=== PATIENT | female | born 1955 | race Caucasian/White ===

== ENCOUNTER 2020-05-19 11:20 | Inpatient (IN) | payer OTHER ==
[2020-05-19] MEDS ORDERED: SODIUM CHLORIDE 0.9% 1,000 ML IV STA (12:06)
[2020-05-19] MEDS ORDERED: ACETAMINOPHEN TAB 325 MG TAB PO STA (12:07)
[2020-05-19 13:00] LABS: Basophils # (A) 0.1 k/uL (0-0.2); Basophils % (A) 1 %; Eosinophils % (A) 1 %; HCT 45.3 % (34.0-46.0); HGB 15.8 gm/dL (11.4-16.0); Lymphocytes # (A) 0.6 k/uL (1.0-4.8); Lymphocytes % (A) 9 %; MCH 30.2 pg (25.0-35.0); MCHC 34.9 g/dL (31.0-37.0); MCV 86.5 fL (80.0-100.0); Mean Platelet Volume 9.1; Monocytes # (A) 0.3 k/uL (0-1.0); Monocytes % (A) 4 %; Neutrophils # (A) 5.8 k/uL (1.3-7.7); Neutrophils % (A) 85 %; Platelet Count 121 k/uL (150-450); RBC 5.24 m/uL (3.80-5.40); WBC 6.8 k/uL (3.8-10.6)
[2020-05-19 13:14] LABS: INR 0.9 (<1.2); Partial Thromboplastin Time 23.8 sec (22.0-30.0); Prothrombin Time 9.8 sec (9.0-12.0)
[2020-05-19 13:17] LABS: ALT 33 U/L (4-34); AST 70 U/L (14-36); African American GFR (CKD) >90 (>60 ml/min/1.73 sqM); Albumin 3.7 g/dL (3.5-5.0); Alkaline Phosphatase 69 U/L (38-126); Anion Gap 9 mmol/L; Blood Urea Nitrogen 18 mg/dL (7-17); Calcium 8.5 mg/dL (8.4-10.2); Carbon Dioxide 29 mmol/L (22-30); Chloride 99 mmol/L (98-107); Glucose 113 mg/dL (74-99); Non-African American GFR(CKD) >90 (>60 ml/min/1.73 sqM); Potassium 3.8 mmol/L (3.5-5.1); Sodium 137 mmol/L (137-145); Total Bilirubin 0.7 mg/dL (0.2-1.3); Total Protein 6.6 g/dL (6.3-8.2)
[2020-05-19 13:28] LABS: D-Dimer 0.77 mg/L FEU (<0.60)
--- NOTE | 2020-05-19 13:31 | ED ---
SOB HPI - General Chief Complaint: Shortness of Breath Stated Complaint: Covid+/sob/dizzy/weak Time Seen by Provider: 05/19/20 11:55 Source: patient, RN notes reviewed Mode of arrival: ambulatory Limitations: no limitations - History of Present Illness Initial Comments: 64-year-old female presents to the emergency room with complaints of shortness of breath and fatigue. tested positive for Covid On although her symptoms started on May 10. Patient states initially had sore throat, diarrhea for 2 days, body aches and fevers. Pt was taking OTC Mucinex for a nonproductive type cough in addition to her Advair inhaler. Patient denies any other medications. Patient states symptoms have all resolved except for the shortness of breath and fatigue and fevers. States has been Tylenol and her last dose was 6:00 this morning. This patient has a history of COPD and asthma, was a smoker for 13 years, stopped at age 27. States chest tightness is about 6 or 7 out of 10. MD Complaint: shortness of breath - Related Data Home Medications Medication Instructions Recorded Confirmed Cholecalciferol (Vitamin D3) 75 mcg PO DAILY 05/19/20 05/19/20 [Vitamin D3 (3000 Iu)] Fluticasone/Salmeterol [Advair 1 puff INHALATION RT-BID 05/19/20 05/19/20 500-50 Diskus] Magnesium Gluconate [Magonate] 500 mg PO DAILY 05/19/20 05/19/20 Multivit-Min/Iron/Folic/Lutein 1 tab PO DAILY 05/19/20 05/19/20 [Centrum Silver Women Tablet] Oxybutynin ER [Ditropan Xl] 10 mg PO DAILY 05/19/20 05/19/20 amLODIPine BESYLATE/BENAZEPRIL 1 cap PO DAILY 05/19/20 05/19/20 [amLODIPine BESYLATE/BENAZEPRIL 10-20 mg] Allergies Allergy/AdvReac Type Severity Reaction Status Date / Time gluten Allergy Nausea & Verified 05/19/20 12:48 Vomiting & Diarrhea lactose Allergy Nausea & Verified 05/19/20 12:48 Vomiting & Diarrhea Review of Systems ROS Statement: Those systems with pertinent positive or pertinent negative responses have been documented in the HPI. ROS Other: All systems not noted in ROS Statement are negative. Past Medical History Past Medical History: Asthma History of Any Multi-Drug Resistant Organisms: None Reported Past Surgical History: Orthopedic Surgery Past Psychological History: No Psychological Hx Reported Smoking Status: Never smoker Past Alcohol Use History: Rare Past Drug Use History: None Reported General Exam Limitations: no limitations General appearance: alert, in no apparent distress Head exam: Present: atraumatic, normocephalic, normal inspection Eye exam: Present: normal appearance, PERRL, EOMI. Absent: scleral icterus, conjunctival injection, periorbital swelling ENT exam: Present: normal exam, mucous membranes moist Neck exam: Present: normal inspection, full ROM. Absent: tenderness, meningismus, lymphadenopathy, thyromegaly Respiratory exam: Present: decreased breath sounds. Absent: respiratory distress, wheezes, rales, rhonchi, stridor, chest wall tenderness, accessory muscle use Cardiovascular Exam: Present: regular rate, normal rhythm, normal heart sounds. Absent: systolic murmur, diastolic murmur, rubs, gallop, clicks GI/Abdominal exam: Present: soft, normal bowel sounds. Absent: distended, tenderness, guarding, rebound, rigid Extremities exam: Present: normal inspection, full ROM, normal capillary refill. Absent: tenderness, pedal edema, joint swelling, calf tenderness Back exam: Present: normal inspection. Absent: CVA tenderness (R), CVA tenderness (L) Neurological exam: Present: alert, oriented X3, CN II-XII intact Psychiatric exam: Present: normal affect, normal mood Skin exam: Present: warm, dry, intact, normal color. Absent: rash Course Vital Signs 05/19/20 05/19/20 05/19/20 11:27 13:15 16:30 Temperature 100.9 F H 99.9 F H 98.9 F Pulse Rate 92 87 90 Respiratory 22 18 18 Rate Blood Pressure 127/72 149/50 149/55 O2 Sat by Pulse 88 L 93 L 93 L Oximetry Medical Decision Making - Medical Decision Making Patient's d-dimer is 0.77, WBC count of 6.8, chest x-ray shows bilateral for opiates. CTA shows heart within upper limits with no pericardial effusion, aorta normal caliber, no large pulmonary embolisms, no measuring 1.9 cm coronal lymph node 1.5 cm likely reactive to bilateral illness. Patchy groundglass consolidation also noted but no pleural effusions. Troponin is negative at 0.012. Hemoglobin and hematocrit 15.8, 45.3 respectively. Due to need with for oxygen therapy with pulse ox of 80% on room air, patient will be admitted. Case discussed with Dr. Montoya who is agreeable to this plan. - Lab Data Result diagrams: 05/19/20 12:40 05/19/20 12:40 Lab Results 05/19/20 05/19/20 05/19/20 Range/Units 12:40 12:40 12:40 WBC 6.8 (3.8-10.6) k/uL RBC 5.24 (3.80-5.40) m/uL Hgb 15.8 (11.4-16.0) gm/dL Hct 45.3 (34.0-46.0) % MCV 86.5 (80.0-100.0) fL MCH 30.2 (25.0-35.0) pg MCHC 34.9 (31.0-37.0) g/dL RDW 14.0 (11.5-15.5) % Plt Count 121 L (150-450) k/uL MPV 9.1 Neutrophils % 85 % Lymphocytes % 9 % Monocytes % 4 % Eosinophils % 1 % Basophils % 1 % Neutrophils # 5.8 (1.3-7.7) k/uL Lymphocytes # 0.6 L (1.0-4.8) k/uL Monocytes # 0.3 (0-1.0) k/uL Eosinophils # 0.0 (0-0.7) k/uL Basophils # 0.1 (0-0.2) k/uL PT 9.8 (9.0-12.0) sec INR 0.9 (<1.2) APTT 23.8 (22.0-30.0) sec D-Dimer 0.77 H (<0.60) mg/L FEU Sodium 137 (137-145) mmol/L Potassium 3.8 (3.5-5.1) mmol/L Chloride 99 (98-107) mmol/L Carbon Dioxide 29 (22-30) mmol/L Anion Gap 9 mmol/L BUN 18 H (7-17) mg/dL Creatinine 0.56 (0.52-1.04) mg/dL Est GFR (CKD-EPI)AfAm >90 (>60 ml/min/1.73 sqM) Est GFR (CKD-EPI)NonAf >90 (>60 ml/min/1.73 sqM) Glucose 113 H (74-99) mg/dL Plasma Lactic Acid Elmo (0.7-2.0) mmol/L Calcium 8.5 (8.4-10.2) mg/dL Total Bilirubin 0.7 (0.2-1.3) mg/dL AST 70 H (14-36) U/L ALT 33 (4-34) U/L Alkaline Phosphatase 69 (38-126) U/L Troponin I (0.000-0.034) ng/mL Total Protein 6.6 (6.3-8.2) g/dL Albumin 3.7 (3.5-5.0) g/dL 05/19/20 05/19/20 Range/Units 12:40 12:40 WBC (3.8-10.6) k/uL RBC (3.80-5.40) m/uL Hgb (11.4-16.0) gm/dL Hct (34.0-46.0) % MCV (80.0-100.0) fL MCH (25.0-35.0) pg MCHC (31.0-37.0) g/dL RDW (11.5-15.5) % Plt Count (150-450) k/uL MPV Neutrophils % % Lymphocytes % % Monocytes % % Eosinophils % % Basophils % % Neutrophils # (1.3-7.7) k/uL Lymphocytes # (1.0-4.8) k/uL Monocytes # (0-1.0) k/uL Eosinophils # (0-0.7) k/uL Basophils # (0-0.2) k/uL PT (9.0-12.0) sec INR (<1.2) APTT (22.0-30.0) sec D-Dimer (<0.60) mg/L FEU Sodium (137-145) mmol/L Potassium (3.5-5.1) mmol/L Chloride (98-107) mmol/L Carbon Dioxide (22-30) mmol/L Anion Gap mmol/L BUN (7-17) mg/dL Creatinine (0.52-1.04) mg/dL Est GFR (CKD-EPI)AfAm (>60 ml/min/1.73 sqM) Est GFR (CKD-EPI)NonAf (>60 ml/min/1.73 sqM) Glucose (74-99) mg/dL Plasma Lactic Acid Elmo 1.5 (0.7-2.0) mmol/L Calcium (8.4-10.2) mg/dL Total Bilirubin (0.2-1.3) mg/dL AST (14-36) U/L ALT (4-34) U/L Alkaline Phosphatase (38-126) U/L Troponin I <0.012 (0.000-0.034) ng/mL Total Protein (6.3-8.2) g/dL Albumin (3.5-5.0) g/dL Disposition Clinical Impression: COVID-19 Disposition: ADMITTED IP TO THIS HOSP Condition: Fair Is patient prescribed a controlled substance at d/c from ED?: No Decision Date: 05/19/20
--- NOTE | 2020-05-19 14:18 | XR ---
EXAMINATION TYPE: XR chest 2V DATE OF EXAM: 05/19/2020 COMPARISON: NONE HISTORY: SARA. TECHNIQUE: Frontal and lateral views of the chest are obtained. FINDINGS: There are bilateral multifocal opacities. No pleural effusion or pneumothorax seen bilater ally The cardiac silhouette size is within normal limits. The osseous structures are demineralized. Slight underlying scoliotic curvature. IMPRESSION: Bilateral multifocal opacities consistent with covid-19 infection.
--- NOTE | 2020-05-19 15:08 | CT ---
EXAMINATION TYPE: CT angio chest DATE OF EXAM: 05/19/2020 COMPARISON: Radiograph same day HISTORY: 64 year-old female shortness of breath and elevated d-dimer, Shortness of breath, positive C OVID, elevated d dimer TECHNIQUE: Contiguous axial scanning of the chest performed with IV Contrast, patient injected with 1 00 mL of Isovue 370. Coronal/sagittal MIP reconstructions performed. CT DLP: 568.5 mGycm Automated exposure control for dose reduction was used. FINDINGS: Heart upper limits of normal in size without pericardial effusion. No flattening of the interventricu lar septum or reflux of contrast into the hepatic veins. Aorta normal caliber with conventional arch vessel branching anatomy. There is borderline suboptimal opacification of the pulmonary arterial system. Further limitation due to generalized breathing motion. No large central pulmonary embolus is identified. Many of the lobar , segmental, and more distal arterial branches are nondiagnostic in embolizing these locations cannot be adequately excluded on the basis of this exam. Mildly enlarged right hilar lymph node at 1.9 cm, subcarinal lymph nodes and 1.5 cm, and AP window ly mph nodes that 1.0 cm. All likely reactive. Patchy and confluent bilateral areas of groundglass consolidation. No pleural effusion. Small hiatal hernia. Marked low attenuation of the hepatic parenchyma. Some indeterminate 1.5 cm nodularity of the left adrenal gland. Bones: No osseous destructive process. IMPRESSION: 1. EXAM LIMITED BY BORDERLINE SUBOPTIMAL CONTRAST BOLUS AND DIFFUSE BREATHING MOTION. NO LARGE CENTRA L PULMONARY EMBOLUS. MANY OF THE LOBAR, SEGMENTAL, AND MORE DISTAL ARTERIAL BRANCHES ARE NONDIAGNOSTI C AND EMBOLI IN THESE LOCATIONS CANNOT BE ADEQUATELY EXCLUDED ON THE BASIS OF THIS EXAM. 2. BILATERAL PATCHY AND CONFLUENT COVID PNEUMONIA. 3. HEPATIC STEATOSIS. INDETERMINATE 1.5 CM LEFT ADRENAL NODULE. A SIX-MONTH FOLLOW-UP ADRENAL MASS HI OTOCOL CT CAN FURTHER EVALUATE.
[2020-05-19] MEDS ORDERED: IBUPROFEN 400 MG TAB PO PRN (16:06)
[2020-05-19] MEDS ORDERED: NALOXONE 0.4 MG/ML 1 ML VIAL IV PRN (16:06)
[2020-05-19] MEDS ORDERED: ACETAMINOPHEN TAB 325 MG TAB PO PRN (16:06)
[2020-05-19] MEDS ORDERED: DEXAMETHASONE SOD PHOSPHATE 10 MG/ML 1 ML VIAL IV SCH (16:45)
[2020-05-19] MEDS ORDERED: BENZONATATE 100 MG CAP PO PRN (19:28)
--- NOTE | 2020-05-19 19:47 | P.HPIM ---
History of Present Illness H&P Date: 05/19/20 This is a pleasant 64-year-old female, patient of Dr. Rohit Jackson she has underlying asthma, not requiring any maintenance oral steroids or oxygen, mild intermittent in nature, on Proventil, she has a prior smoking history, quit at age 27, She comes into the emergency room with sore throat, body aches fever, and worsening shortness of breath, symptoms started 4/3 days had productive cough with diarrhea, muscle aches, chills, shortness of breath, for which it has progressed till 2 days prior admission, requiring now on ER visit. She also has chest pressure, no hemoptysis, patient denies any daily or DVT in the past. In the emergency room, she was noted to the hypoxemic with O2 sats at 88% on room air, requiring 2 L nasal cannula, she has CTA of the chest, showing borderline suboptimal opacification of pulmonary arterial system, no large central pulmonary emboli is identified, there are many lobar segmental and more distal arterial branches are nondiagnostic in embolizing, patchy bilateral infiltrates of groundglass consolidation, no pleural effusion, small hiatal hernia, indeterminate 1.5 cm nodularity left adrenal gland. Imaging consistent with confluent covered pneumonia, fatty liver, six-month follow-up for adrenal mass protocol was recommended. Left adrenal 1.5 cm adrenal nodule that shows 6.8 WBC, neutrophils normal, lymphocytes low at 0.6, d-dimer slightly elevated 0.77, creatinine 0.56, glucose 113, lactic acid normal 1.5, AST 70 elevated no sed rate no CRP no pro-calcitonin no ferritin no LDH obtained no EKG for review, consult was made with Dr. Garg, infectious disease Review of Systems Constitutional: Reports as per HPI, Reports chills, Denies anorexia, Denies chronic headaches, Denies chronic pain, Denies daytime sleepiness, Denies fatigue, Denies fever, Denies lethargy, Denies malaise, Denies night sweats, Den ies poor appetite, Denies sweats, Denies weakness, Denies weight gain, Denies weight loss Ears, nose, mouth and throat: Reports as per HPI, Denies ant. neck pain, Denies bleeding gums, Denies dental pain, Denies dysphagia, Denies epistaxis, Denies headache, Denies hoarseness, Denies mouth pain, Denies nasal congestion, Denies nasal discharge, Denies neck fullness/pressure, Denies neck lump, Denies nose pain, Denies odynophagia, Denies post-nasal drip, Denies sinus pain, Denies sinus pressure, Denies swelling in mouth, Denies swelling in throat, Denies sore throat, Denies vertigo, Denies voice changes Cardiovascular: Reports as per HPI, Reports decreased exercise tolerance, Reports dyspnea on exertion, Reports shortness of breath Respiratory: Reports as per HPI, Reports cough, Reports dyspnea, Denies congestion, Denies cough with sputum, Denies excessive sputum, Denies hemoptysis, Denies home oxygen, Denies pain, Denies pain on inspiration, Denies pleurisy, Denies respiratory infections, Denies sleep apnea, Denies snoring, Denies wheezing Gastrointestinal: Reports as per HPI, Denies abdominal pain, Denies belching, Denies bloating, Denies BRBPR, Denies change in bowel habits, Denies coffee ground emesis, Denies constipation, Denies diarrhea, Denies dyspepsia, Denies early satiety, Denies excessive gas, Denies heartburn, Denies hematemesis, Denies hematochezia, Denies indigestion, Denies jaundice, Denies lactose intolerance, Denies loss of appetite, Denies melena, Denies nausea, Denies vomiting Genitourinary: Reports as per HPI, Denies abnormal vaginal bleeding, Denies decreased libido, Denies difficulty conceiving, Denies difficulty voiding, Denies dysmenorrhea, Denies dyspareunia, Denies dysuria, Denies flank pain, Denies genital sores, Denies hematuria, Denies hot flashes, Denies incomplete emptying, Denies kidney stones, Denies menorrhagia, Denies mixed incontinence, Denies nocturia, Denies pelvic pain, Denies post void dribbling, Denies p regnant, Denies prolapse symptoms, Denies stress incontinence, Denies urge incontinence, Denies urgency, Denies urinary frequency, Denies vaginal discharge, Denies vaginal dryness, Denies vaginal itching, Denies vaginal odor Integumentary: Reports as per HPI, Reports acne Neurological: Reports as per HPI, Reports gait dysfunction, Denies aphasia, D enies ataxia, Denies balance difficulties, Denies burning pain, Denies change in mentation, Denies change in smell/taste, Denies change in speech, Denies confusion, Denies convulsions, Denies double vision, Denies head injury, Denies headaches, Denies hearing difficulties, Denies lack of coordination, Denies loss of vision, Denies memory loss, Denies migraines, Denies motor disturbance, Denies numbness, Denies paralysis, Denies paresthesias, Denies seizures, Denies sensory deficit, Denies spasticity, Denies syncope, Denies tic, Denies tingling, Denies transient paralysis, Denies tremors, Denies vertigo, Denies weakness, Denies visual changes Psychiatric: Denies as per HPI, Denies anhedonia, Denies anxiety, Denies anxiety attacks, Denies change in appetite, Denies change in libido, Denies change in sleep habits, Denies confusion, Denies depression, Denies difficulty concentrating, Denies disorientation, Denies hallucinations, Denies hopelessness, Denies hypersomnia, Denies insomnia, Denies irritability, Denies memory loss, Denies mood swings, Denies paranoia, Denies sadness/tearfulness, Denies sleep disturbances, Denies suicidal ideation Endocrine: Reports as per HPI Hematologic/Lymphatic: Reports as per HPI Allergic/Immunologic: Reports as per HPI, Denies allergic rhinitis, Denies anaphylaxis, Denies angioedema, Denies gluten intolerance, Denies persistent infections, Denies seasonal allergies, Denies urticaria, Denies wheezing Past Medical History Past Medical History: Asthma History of Any Multi-Drug Resistant Organisms: None Reported Past Surgical History: Orthopedic Surgery Past Psychological History: No Psychological Hx Reported Smoking Status: Never smoker Past Alcohol Use History: Rare Past Drug Use History: None Reported Medications and Allergies Home Medications Medication Instructions Recorded Confirmed Type Cholecalciferol (Vitamin D3) 75 mcg PO DAILY 05/19/20 05/19/20 History [Vitamin D3 (3000 Iu)] Fluticasone/Salmeterol [Advair 1 puff INHALATION RT-BID 05/19/20 05/19/20 History 500-50 Diskus] Magnesium Gluconate [Magonate] 500 mg PO DAILY 05/19/20 05/19/20 History Multivit-Min/Iron/Folic/Lutein 1 tab PO DAILY 05/19/20 05/19/20 History [Centrum Silver Women Tablet] Oxybutynin ER [Ditropan Xl] 10 mg PO DAILY 05/19/20 05/19/20 History amLODIPine BESYLATE/BENAZEPRIL 1 cap PO DAILY 05/19/20 05/19/20 History [amLODIPine BESYLATE/BENAZEPRIL 10-20 mg] Allergies Allergy/AdvReac Type Severity Reaction Status Date / Time gluten Allergy Nausea & Verified 05/19/20 12:48 Vomiting & Diarrhea lactose Allergy Nausea & Verified 05/19/20 12:48 Vomiting & Diarrhea Physical Exam Vitals: Vital Signs Temp Pulse Pulse Resp BP BP Pulse Ox 05/19/20 18:01 100.4 F H 89 19 145/79 90 L 05/19/20 16:30 98.9 F 90 18 149/55 93 L 05/19/20 13:15 99.9 F H 87 18 149/50 93 L 05/19/20 11:27 100.9 F H 92 22 127/72 88 L Intake and Output 05/19/20 05/19/20 05/19/20 06:59 14:59 22:59 Other: # Voids 3 Weight 131.542 kg 131.542 kg - Constitutional General appearance: cooperative, no acute distress - EENT Eyes: EOMI, PERRLA, dentition normal ENT: NA/AT, normal oropharynx - Neck Neck: normal ROM - Respiratory Respiratory: bilateral: CTA, diminished - Cardiovascular Rhythm: regular Heart sounds: normal: S1, S2 Abnormal Heart Sounds: no systolic murmur, no diastolic murmur, no rub, no S3 Gallop, no S4 Gallop, no click, no other - Gastrointestinal General gastrointestinal: normal bowel sounds, soft - Integumentary Integumentary: decreased turgor, normal - Neurologic Neurologic: CNII-XII intact - Musculoskeletal Musculoskeletal: gait normal, generalized weakness, strength equal bilaterally Results CBC & Chem 7: 05/19/20 12:40 05/19/20 12:40 Labs: Abnormal Lab Results - Last 24 Hours (Table) 05/19/20 05/19/20 05/19/20 Range/Units 12:40 12:40 12:40 Plt Count 121 L (150-450) k/uL Lymphocytes # 0.6 L (1.0-4.8) k/uL D-Dimer 0.77 H (<0.60) mg/L FEU BUN 18 H (7-17) mg/dL Glucose 113 H (74-99) mg/dL AST 70 H (14-36) U/L Laboratory Results WBC 6.8 k/uL (3.8-10.6) 05/19/20 12:40 RBC 5.24 m/uL (3.80-5.40) 05/19/20 12:40 Hgb 15.8 gm/dL (11.4-16.0) 05/19/20 12:40 Hct 45.3 % (34.0-46.0) 05/19/20 12:40 MCV 86.5 fL (80.0-100.0) 05/19/20 12:40 MCH 30.2 pg (25.0-35.0) 05/19/20 12:40 MCHC 34.9 g/dL (31.0-37.0) 05/19/20 12:40 RDW 14.0 % (11.5-15.5) 05/19/20 12:40 Plt Count 121 k/uL (150-450) L 05/19/20 12:40 MPV 9.1 05/19/20 12:40 Neutrophils % 85 % 05/19/20 12:40 Lymphocytes % 9 % 05/19/20 12:40 Monocytes % 4 % 05/19/20 12:40 Eosinophils % 1 % 05/19/20 12:40 Basophils % 1 % 05/19/20 12:40 Neutrophils # 5.8 k/uL (1.3-7.7) 05/19/20 12:40 Lymphocytes # 0.6 k/uL (1.0-4.8) L 05/19/20 12:40 Monocytes # 0.3 k/uL (0-1.0) 05/19/20 12:40 Eosinophils # 0.0 k/uL (0-0.7) 05/19/20 12:40 Basophils # 0.1 k/uL (0-0.2) 05/19/20 12:40 PT 9.8 sec (9.0-12.0) 05/19/20 12:40 INR 0.9 (<1.2) 05/19/20 12:40 APTT 23.8 sec (22.0-30.0) 05/19/20 12:40 D-Dimer 0.77 mg/L FEU (<0.60) H 05/19/20 12:40 Sodium 137 mmol/L (137-145) 05/19/20 12:40 Potassium 3.8 mmol/L (3.5-5.1) 05/19/20 12:40 Chloride 99 mmol/L (98-107) 05/19/20 12:40 Carbon Dioxide 29 mmol/L (22-30) 05/19/20 12:40 Anion Gap 9 mmol/L 05/19/20 12:40 BUN 18 mg/dL (7-17) H 05/19/20 12:40 Creatinine 0.56 mg/dL (0.52-1.04) 05/19/20 12:40 Est GFR (CKD-EPI)AfAm >90 (>60 ml/min/1.73 sqM) 05/19/20 12:40 Est GFR (CKD-EPI)NonAf >90 (>60 ml/min/1.73 sqM) 05/19/20 12:40 Glucose 113 mg/dL (74-99) H 05/19/20 12:40 Plasma Lactic Acid Elmo 1.5 mmol/L (0.7-2.0) 05/19/20 12:40 Calcium 8.5 mg/dL (8.4-10.2) 05/19/20 12:40 Total Bilirubin 0.7 mg/dL (0.2-1.3) 05/19/20 12:40 AST 70 U/L (14-36) H 05/19/20 12:40 ALT 33 U/L (4-34) 05/19/20 12:40 Alkaline Phosphatase 69 U/L (38-126) 05/19/20 12:40 Troponin I <0.012 ng/mL (0.000-0.034) 05/19/20 12:40 Total Protein 6.6 g/dL (6.3-8.2) 05/19/20 12:40 Albumin 3.7 g/dL (3.5-5.0) 05/19/20 12:40 Thrombosis Risk Factor Assmnt - DVT/VTE Prophylaxis DVT/VTE Prophylaxis: Pharmacologic Prophylaxis ordered Assessment and Plan Plan: 1. Covid infection with acute hypoxemic respiratory failure, with pneumonia with symptoms starting May 10 confirmed positive on May 19 she has underlying asthma COPD, ex-smoker quit at age 27., for which she does not require any O2, or prednisone prior to admission. Jerry and hypoxemia, she is not a candidate for outpatient regimen to include bamlanivimab/etesevimab, consideration for remsedivir I will request Dr. Garg to decide on this matter, she will be started on dexamethasone 6 mg daily, with vitamin C, vitamin D, and zinc DVT prophylaxes with Lovenox 40 mg daily next, increase dexamethasone to 6 mg IV twice a day 2. History of mild intermittent asthma with exacerbation, on when necessary albuterol, now that she is sick she was requiring Advair at home, consult Dr Olivia 3. Adrenal mass 1.5 cm indeterminate, recommended repeat CAT scan in 6 months, due November 2020 outpatient 4. Covid pneumonia with hypoxia, IV remdesivir is recommended, I will await Dr. Garg or dr Olivia for their input, might need Zithromax for secondary pneumonia 5 Johnson, with elevated AST, diet management 6. Hypertension, lisinopril 20 mg daily 7. DVT prophylaxis Lovenox 40 mg daily 8. Insomnia, start melatonin 6 mg at bedtime 9 BMI of 45, check A1c,
[2020-05-19] MEDS: MELATONIN 3 MG TABLET PO SCH (20:37)
[2020-05-19] MEDS: DEXAMETHASONE SOD PHOSPHATE 10 MG/ML 1 ML VIAL IV SCH (20:37)
[2020-05-19] MEDS: SYMBICORT 160-4.5 MCG INHALER INHALATION SCH (20:53)
[2020-05-19] MEDS ORDERED: REMDESIVIR 200 MG in SODIUM CHLORIDE 0.9% 250 ML IVPB ONE (22:30)
[2020-05-20] MEDS: MAGNESIUM OXIDE 400 MG TAB PO SCH (07:27)
[2020-05-20] MEDS: OXYBUTYNIN 10 MG TAB.ER.24 PO SCH (07:27)
[2020-05-20] MEDS: MULTIVITAMINS, THERA 1 EACH TAB PO SCH (07:27)
[2020-05-20] MEDS: CHOLECALCIFEROL 25 MCG (1000 IU) TABLET PO SCH (07:27)
[2020-05-20] MEDS: ENOXAPARIN 40 MG/0.4 ML SYRINGE SQ SCH (07:27)
[2020-05-20] MEDS: lisinopriL 20 MG TAB PO SCH (07:28)
[2020-05-20] MEDS: amLODIPine 10 MG TAB PO SCH (07:28)
[2020-05-20] MEDS: DEXAMETHASONE SOD PHOSPHATE 10 MG/ML 1 ML VIAL IV SCH ×2 (07:28→21:08)
[2020-05-20] MEDS: SYMBICORT 160-4.5 MCG INHALER INHALATION SCH ×2 (07:46→21:32)
[2020-05-20] MEDS ORDERED: DEXAMETHASONE SOD PHOSPHATE 10 MG/ML 1 ML VIAL IV SCH (09:00)
[2020-05-20 09:27] LABS: Basophils # (A) 0.01 X 10*3/uL (0.00-0.10); Basophils % (A) 0.2 %; Eosinophils # (A) 0 X 10*3/uL (0.04-0.35); Eosinophils % (A) 0 %; HCT 44.3 % (37.2-46.3); HGB 14.5 g/dL (12.0-15.0); Lymphocytes # (A) 0.87 X 10*3/uL (0.90-5.00); Lymphocytes % (A) 16.3 %; MCH 29.4 pg (27.0-32.0); MCHC 32.7 g/dL (32.0-37.0); MCV 89.7 fL (80.0-97.0); Mean Platelet Volume 11.9 fL (9.5-12.2); Monocytes # (A) 0.27 X 10*3/uL (0.20-1.00); Monocytes % (A) 5.1 %; Neutrophils # (A) 4.13 X 10*3/uL (1.80-7.70); Neutrophils % (A) 77.5 %; Platelet Count 132 X 10*3/uL (140-440); RBC 4.94 X 10*6/uL (4.10-5.20); RDW 14.7 % (11.5-14.5); WBC 5.33 X 10*3/uL (4.50-10.00)
--- NOTE | 2020-05-20 12:56 | P.CNPUL ---
History of Present Illness Consult date: 05/20/20 Reason for consult: dyspnea, pneumonia History of present illness: 64-year-old female patient, asthmatic, chemistry burst department with symptoms of sore throat and body aches and fever or worsening shortness of breath and the symptoms started on 05/10/2020.. The patient also had some diarrhea muscle aches and chills along with shortness of breath. Her breathing got worse over the past 2 days. The patient came into the emergency department. The patient was found to be hypoxic with pulse ox of 80% and the patient was placed on 2 L of oxygen by nasal cannula. The white cell count was 6.8 and the patient had lymphopenia. D-dimer was at 0.77, renal function was normal with a creatinine of 0.56. The platelet count was low at 121 and the patient's lactic acid level was at 1.5. The chest x-ray showing diffuse bilateral airspace disease and multifocal pulmonary opacities. CT angiogram showed no evidence of any pulmonary embolism. Patchy and confluent bilateral pulmonary consolidation and groundglass changes seen. The patient was also found to have a small hiatal hernia. Patient checked positive for COVID 19 infection and the patient is currently on Decadron 6 mg IV every 24 hours, Lovenox 40 mg subcu every 24 hours. Over the past 10-12 hours, the patient and wean down from 6 L down to 3 L of oxygen by nasal cannula. Review of Systems Constitutional: Reports fatigue, Reports fever, Reports lethargy, Reports poor appetite, Reports weakness Eyes: denies as per HPI, denies blurred vision, denies bulging eye, denies decreased vision, denies diplopia, denies discharge, denies dry eye, denies irritation, denies itching, denies pain, denies photophobia, denies loss of peripheral vision, denies loss of vision, denies tunnel vision/blind spots Ears: deny: decreased hearing, ear discharge, earache, tinnitus Ears, nose, mouth and throat: Reports as per HPI Breasts: absent: as per HPI, change in shape, gynecomastia, masses, nipple discharge, pain, skin changes, swelling Cardiovascular: Reports decreased exercise tolerance, Reports dyspnea on exertion Respiratory: Reports cough, Reports dyspnea Gastrointestinal: Reports as per HPI Genitourinary: Reports as per HPI Menstruation: Reports as per HPI Musculoskeletal: Reports as per HPI Musculoskeletal: absent: ankle pain, ankle stiffness, ankle swelling, as per HPI, elbow pain, elbow stiffness, elbow swelling, foot pain, foot stiffness, foot swelling, hand pain, hand stiffness, hand swelling, hip pain, hip stiffness, hip swelling, knee pain, knee stiffness, knee swelling, shoulder pain, shoulder stiffness, shoulder swelling, wrist pain, wrist stiffness, wrist swelling Integumentary: Reports as per HPI Neurological: Reports as per HPI, Reports weakness Psychiatric: Reports as per HPI Endocrine: Reports as per HPI Hematologic/Lymphatic: Reports as per HPI Allergic/Immunologic: Reports as per HPI Past Medical History Past Medical History: Asthma Additional Past Medical History / Comment(s): Obesity History of Any Multi-Drug Resistant Organisms: None Reported Past Surgical History: Orthopedic Surgery Past Psychological History: No Psychological Hx Reported Smoking Status: Never smoker Past Alcohol Use History: Rare Past Drug Use History: None Reported Medications and Allergies Home Medications Medication Instructions Recorded Confirmed Type Cholecalciferol (Vitamin D3) 75 mcg PO DAILY 05/19/20 05/19/20 History [Vitamin D3 (3000 Iu)] Fluticasone/Salmeterol [Advair 1 puff INHALATION RT-BID 05/19/20 05/19/20 History 500-50 Diskus] Magnesium Gluconate [Magonate] 500 mg PO DAILY 05/19/20 05/19/20 History Multivit-Min/Iron/Folic/Lutein 1 tab PO DAILY 05/19/20 05/19/20 History [Centrum Silver Women Tablet] Oxybutynin ER [Ditropan Xl] 10 mg PO DAILY 05/19/20 05/19/20 History amLODIPine BESYLATE/BENAZEPRIL 1 cap PO DAILY 05/19/20 05/19/20 History [amLODIPine BESYLATE/BENAZEPRIL 10-20 mg] Allergies Allergy/AdvReac Type Severity Reaction Status Date / Time gluten Allergy Nausea & Verified 05/19/20 12:48 Vomiting & Diarrhea lactose Allergy Nausea & Verified 05/19/20 12:48 Vomiting & Diarrhea Physical Exam Vitals: Vital Signs Temp Pulse Pulse Resp BP BP Pulse Ox 05/20/20 10:00 98.1 F 72 17 128/71 90 L 05/20/20 05:52 98.3 F 65 16 133/71 91 L 05/20/20 02:00 98.6 F 72 19 123/73 89 L 05/19/20 22:00 99.0 F 79 19 138/67 88 L 05/19/20 18:01 100.4 F H 89 19 145/79 90 L 05/19/20 16:30 98.9 F 90 18 149/55 93 L 05/19/20 13:15 99.9 F H 87 18 149/50 93 L Intake and Output 05/19/20 05/20/20 05/20/20 22:59 06:59 14:59 Other: Voiding Method Toilet # Voids 3 2 3 Weight 131.542 kg Gen. appearance the patient is obese, comfortable active distress, BMI is 45 Head exam was generally normal. There was no scleral icterus or corneal arcus. Mucous membranes were moist. Neck was supple and without jugular venous distension, thyromegaly, or carotid bruits. Carotids were easily palpable bilaterally. There was no adenopathy. Lungs sounds are diminished bilaterally patient has some bilateral basilar crackles Cardiac exam revealed the PMI to be normally situated and sized. The rhythm was regular and no extrasystoles were noted during several minutes of auscultation. The first and second heart sounds were normal and physiologic splitting of the second heart sound was noted. There were no murmurs, rubs, clicks, or gallops. Abdominal exam revealed normal bowel sounds. The abdomen was soft, non-tender, and without masses, organomegaly, or appreciable enlargement of the abdominal aorta. Examination of the extremities revealed easily palpable radial, femoral and pedal pulses. There was no cyanosis, clubbing or edema. Examination of the skin revealed no evidence of significant rashes, suspicious appearing nevi or other concerning lesions. Neurologically, the patient is awake and alert and the patient does not have any focal neurological deficit. Cranial nerves are essentially intact. Results - Laboratory Findings CBC and BMP: 05/20/20 05:37 05/19/20 12:40 PT/INR, D-dimer PT 9.8 sec (9.0-12.0) 05/19/20 12:40 INR 0.9 (<1.2) 05/19/20 12:40 D-Dimer 0.77 mg/L FEU (<0.60) H 05/19/20 12:40 Abnormal lab findings: Abnormal Labs 05/19/20 05/19/20 05/19/20 12:40 12:40 12:40 RDW Plt Count 121 L Immature Gran # Lymphocytes # 0.6 L Eosinophils # D-Dimer 0.77 H BUN 18 H Glucose 113 H AST 70 H 05/20/20 05:37 RDW 14.7 H Plt Count 132 L Immature Gran # 0.05 H Lymphocytes # 0.87 L Eosinophils # 0 L D-Dimer BUN Glucose AST - Diagnostic Findings Chest x-ray: image reviewed Assessment and Plan Plan: 1 acute COVID 19 related pneumonia, symptoms started on 05/10/2020 and the patient presented emergency on 05/19/2020 with pneumonia by the pulmonary infiltrates confirmed and a chest x-ray to see angiogram. D-dimer is not elevated. CT abdomen showing no evidence of any pulmonary embolism. Bilateral groundglass pulmonary infiltrates and consolidations. 2 acute hypoxic respiratory failure currently on 6 L of oxygen by nasal cannula and this was weaned down to 3 L by nasal cannula 3 obesity with a BMI of 45.4 4 history of bronchial asthma maintained on inhalers such as Advair outpatient basis 5 MTZ 6 hypertension Plan We'll start the patient on oxygen and titrated. Within a saturation above 90% Lovenox for DVT prophylaxis 40 mg subcutaneous, for a d-dimer of 0.77. We will put the patient on Decadron 6 mg IV every 24 hours Monitor inflammatory markers Patient may still be within the window for Remdesivir treatment. I think it's worthwhile to give her the benefit of the doubt and initiated treatment Resume all medications We'll continue to follow
--- NOTE | 2020-05-20 13:53 | P.PN ---
Subjective Progress Note Date: 05/20/20 HISTORY OF PRESENT ILLNESS This is a pleasant 64-year-old female, patient of Dr. Rohit Jackson she has underlying asthma, not requiring any maintenance oral steroids or oxygen, mild intermittent in nature, on Proventil, she has a prior smoking history, quit at age 27, She comes into the emergency room with sore throat, body aches fever, and worsening shortness of breath, symptoms started 4/3 days had productive cough with diarrhea, muscle aches, chills, shortness of breath, for which it has progressed till 2 days prior admission, requiring now on ER visit. She also has chest pressure, no hemoptysis, patient denies any daily or DVT in the past. In the emergency room, she was noted to the hypoxemic with O2 sats at 88% on room air, requiring 2 L nasal cannula, she has CTA of the chest, showing borderline suboptimal opacification of pulmonary arterial system, no large ce ntral pulmonary emboli is identified, there are many lobar segmental and more distal arterial branches are nondiagnostic in embolizing, patchy bilateral infiltrates of groundglass consolidation, no pleural effusion, small hiatal hernia, indeterminate 1.5 cm nodularity left adrenal gland. Imaging consistent with confluent covered pneumonia, fatty liver, six-month follow-up for adrenal mass protocol was recommended. Left adrenal 1.5 cm adrenal nodule that shows 6.8 WBC, neutrophils normal, lymphocytes low at 0.6, d-dimer slightly elevated 0.77, creatinine 0.56, glucose 113, lactic acid normal 1.5, AST 70 elevated no sed rate no CRP no pro-calcitonin no ferritin no LDH obtained no EKG for review, consult was made with Dr. Garg, infectious disease 05/20: Patient states her breathing is a little bit better today and she slept well last night and thinks this has significantly impact her overall condition. She denies having any leg pain. She is currently on O2 at 3 L with pulse ox of 90%. Patient is been afebrile, heart rate 72, blood pressure 128/71. Repeat CBC reveals platelet count of 132, lymphocytes 0.87. Jazmine Tsai added. Patient is on day #2/5 of Remdesivir. REVIEW OF SYSTEMS Constitutional: No fever, no chills, no night sweats. No weight change. Reports weakness, Reports fatigue. No daytime sleepiness. EENT: No headache. No blurred vision or double vision, no loss of vision. No loss of Hearing, no ringing in the ears, no dizziness. No nasal drainage or congestion. No epistaxis. No sore throat. Lungs: Reports shortness of breath, Reports cough, no sputum production. No wheezing. Cardiovascular: No chest pain, no lower extremity edema. No palpitations. No paroxysmal nocturnal dyspnea. No orthopnea. No lightheadedness or dizziness. No syncopal episodes. Abdominal: No abdominal pain. No nausea, vomiting. No diarrhea. No constipation. No bloody or tarry stools. No loss of appetite. Genitourinary: No dysuria, increased frequency, urgency. No urinary retention. Musculoskeletal: No myalgias. No muscle weakness, no gait dysfunction, no frequent falls. No back pain. No neck pain. Integumentary: No wounds, no lesions. No rash or pruritus. No unusual bruising. No change in hair or nails. Neurologic: No aphasia. No facial droop. No change in mentation. No head injury. No headache. No paralysis. No paresthesia. Psychiatric: No depression. No anxiety. Endocrine: No abnormal blood sugars. No weight change. PHYSICAL EXAMINATION Gen: This is a 64-year-old morbidly obese female. Patient is resting in recliner and appears to be comfortable at rest. HEENT: Head is atraumatic, normocephalic. Pupils equal, round. Sclerae is anicteric. NECK: Supple. No JVD. No lymphadenopathy. No thyromegaly. LUNGS: Diminished bilaterally. No wheezes or rhonchi. No intercostal r etractions. HEART: Regular rate and rhythm. No murmur. ABDOMEN: Soft. Bowel sounds are present. No masses. No tenderness. EXTREMITIES: No pedal edema. No calf tenderness. NEUROLOGICAL: Patient is awake, alert and oriented x3. Cranial nerves 2 through 12 are grossly intact. ASSESSMENT AND PLAN 1. Acute hypoxic respiratory failure secondary to Covid 19 pneumonia. Symptoms starting May 10 patient is on day #2/5 of Remdesivir, continue dexamethasone 6 mg IV twice daily, with vitamin C, vitamin D, and zinc, Lovenox 40 mg subcu daily, pulmonary consult appreciated. Continue oxygen therapy. 2. History of mild intermittent asthma with exacerbation, on when necessary albuterol, now that she is sick she was requiring Advair at home, consult Dr Olivia 3. Adrenal mass 1.5 cm indeterminate, recommended repeat CAT scan in 6 months, due November 2020 outpatient 4. Covid pneumonia with hypoxia, IV remdesivir is recommended, I will await Dr. Garg or dr Olivia for their input, might need Zithromax for secondary pneumonia 5. Johnson, with elevated AST, diet management 6. Hypertension, lisinopril 20 mg daily 7. DVT prophylaxis Lovenox 40 mg daily 8. Insomnia, start melatonin 6 mg at bedtime 9. BMI of 45, check A1c, DISCHARGE PLAN Home. Impression and plan of care have been directed as dictated by the signing physician. Katie Iniguez nurse practitioner acting as scribe for signing physician. Objective - Vital Signs Vital signs: Vital Signs Temp 98.3 F 05/20/20 05:52 Pulse 65 05/20/20 05:52 Resp 16 05/20/20 05:52 BP 133/71 05/20/20 05:52 Pulse Ox 91 L 05/20/20 05:52 Intake & Output 05/19/20 05/20/20 05/20/20 18:59 06:59 18:59 Weight 131.542 kg Other: Voiding Method Toilet # Voids 3 2 - Labs CBC & Chem 7: 05/20/20 05:37 05/19/20 12:40 Labs: Abnormal Lab Results - Last 24 Hours (Table) 05/19/20 05/19/20 05/19/20 Range/Units 12:40 12:40 12:40 RDW (11.5-14.5) % Plt Count 121 L (150-450) k/uL Immature Gran # (0.00-0.04) X 10*3/uL Lymphocytes # 0.6 L (1.0-4.8) k/uL Eosinophils # (0.04-0.35) X 10*3/uL D-Dimer 0.77 H (<0.60) mg/L FEU BUN 18 H (7-17) mg/dL Glucose 113 H (74-99) mg/dL AST 70 H (14-36) U/L 05/20/20 Range/Units 05:37 RDW 14.7 H (11.5-14.5) % Plt Count 132 L (150-450) k/uL Immature Gran # 0.05 H (0.00-0.04) X 10*3/uL Lymphocytes # 0.87 L (1.0-4.8) k/uL Eosinophils # 0 L (0.04-0.35) X 10*3/uL D-Dimer (<0.60) mg/L FEU BUN (7-17) mg/dL Glucose (74-99) mg/dL AST (14-36) U/L
[2020-05-20 14:23] LABS: African American GFR (CKD) 113.2 (60.0-200.0); Albumin 3.9 g/dL (3.80-4.90); Albumin/Globulin Ratio 1.95 (1.60-3.17); Anion Gap 13.9 mmol/L (4.00-12.00); C Reactive Protein 14.8 mg/dL (0.0-0.8); Calcium 8.8 mg/dL (8.7-10.3); Carbon Dioxide 21.1 mmol/L (21.6-31.8); Non-African American GFR(CKD) 97.7 (60.0-200.0); Potassium 3.8 mmol/L (3.5-5.5); Total Bilirubin 0.5 mg/dL (0.3-1.2); Total Protein 5.9 g/dL (6.2-8.2)
[2020-05-20 14:46] LABS: Hemoglobin A1C 5.4 % (4.0-6.0)
[2020-05-20 16:42] LABS: Ferritin 600.7 ng/mL (10.0-291.0)
[2020-05-20] MEDS: REMDESIVIR 100 MG in SODIUM CHLORIDE 0.9% 250 ML IVPB SCH (21:08)
[2020-05-20] MEDS: MELATONIN 3 MG TABLET PO SCH (21:08)
--- NOTE | 2020-05-20 23:05 | CONS ---
CONSULTATION DATE OF SERVICE: 05/20/2020 REASON FOR CONSULTATION: COVID-19 pneumonia. HISTORY OF PRESENT ILLNESS: The patient is a 64-year-old female who presented to the ER at [facility] yesterday for evaluation of increasing shortness of breath and fatigue. The patient's symptoms started on May 10. Initially they have been mostly sore throat and diarrhea along with body aches and fever. However, the patient has been using over- the-counter Mucinex and Sudafed. However, the patient did not have any improvement. She noticed worsening of shortness of breath over the last 2 days. She also has a cough which has been moderate in intensity with occasional sputum, no hemoptysis. Denies any chest pain. Nausea but no vomiting. No abdominal pain. She did have diarrhea. With these symptoms, the patient was evaluated by the ER physician. On arrival in the ER, the patient did have a low-grade fever of 100.9. The patient did have hypoxemia with oxygen saturations of 88% on room air. She is currently 95% on 6 L cannula. The patient has been admitted to the hospital. Infectious Disease was consulted for further management. The patient did have evidence of lymphopenia and elevated D-dimer. Creatinine was normal, AST mildly elevated. CRP was elevated. Procalcitonin was not done. The patient did have a chest x-ray followed by CT angiogram which showed evidence of ground-glass opacities. REVIEW OF SYSTEMS: Positive points have been mentioned in the HPI. Rest of the systems are negative. PAST MEDICAL HISTORY: Asthma. PAST SURGICAL HISTORY: Orthopedic surgery. SOCIAL HISTORY: Denies any smoking. Rarely drinks. No drug use. FAMILY HISTORY: No pertinent findings noticed. ALLERGIES: GLUTEN and LACTOSE. MEDICATIONS: The patient is currently on remdesivir, Ditropan XL, Narcan, Theragran, melatonin, magnesium oxide, Zestril, Motrin, Lovenox, Decadron, vitamin D3, Symbicort, Tessalon Perles, Norvasc and Tylenol. PHYSICAL EXAMINATION: Blood pressure 124/72 with a pulse of 73, temperature of 97.7. She is 95% on 6 L nasal cannula. General description is a middle-aged female up in the chair in no distress. HEENT: Examination shows no pallor or scleral icterus. Oral mucous membrane is dry. NECK: Trachea is central. No thyromegaly. LUNGS: Unlabored breathing. Decreased intensity of breath sounds. No wheeze. HEART: S1, S2. Regular rate and rhythm. ABDOMEN: Soft. No tenderness. No guarding or rigidity. EXTREMITIES: No edema of the feet. SKIN EXAMINATION: No rash or mass palpable. Neurologically the patient is awake, alert, oriented x3. Mood and affect normal. LABS: Hemoglobin is 14.5, white count 5.33, lymphocytes 0.87. D-dimer is slightly elevated at 0.77. Creatinine is normal. AST mildly elevated. LDH was mildly elevated. Chest x- ray and CT report as mentioned above. DIAGNOSTIC IMPRESSION AND PLAN: Patient admitted to hospital with increased shortness of breath and cough. Symptoms have been going on, started on 4/3 but really worsening in the last few days in this patient with underlying COVID-19 infection. The patient seems to have shown clinical improvement over the last 24 hours since being admitted to hospital with the remdesivir therapy. PLAN: 1. Will keep the patient on remdesivir to finish her 5-day course of therapy. 2. Lovenox, dexamethasone. 3. Will add zinc and ascorbic acid. 4. Droplet isolation and respiratory support. 5. Will follow clinical condition and further adjust medication if needed. Thank you for this consultation. Will follow this patient along with you. [id number] / IJN: [id number] /
[2020-05-21 06:47] LABS: HGB 14.5 gm/dL (11.4-16.0); MCH 30.3 pg (25.0-35.0); MCHC 34.5 g/dL (31.0-37.0); MCV 87.8 fL (80.0-100.0); Mean Platelet Volume 9.7; Platelet Count 140 k/uL (150-450); RBC 4.79 m/uL (3.80-5.40); RDW 13.9 % (11.5-15.5); WBC 9.2 k/uL (3.8-10.6)
[2020-05-21 07:10] LABS: ALT 47 U/L (4-34); African American GFR (CKD) >90 (>60 ml/min/1.73 sqM); Albumin 3.1 g/dL (3.5-5.0); Albumin/Globulin Ratio 1.1; Anion Gap 6 mmol/L; Blood Urea Nitrogen 23 mg/dL (7-17); C Reactive Protein 74.5 mg/L (<10.0); Calcium 8.7 mg/dL (8.4-10.2); Carbon Dioxide 29 mmol/L (22-30); Chloride 104 mmol/L (98-107); Globulin 2.8 g/dL; Glucose 142 mg/dL (74-99); Non-African American GFR(CKD) >90 (>60 ml/min/1.73 sqM); Sodium 139 mmol/L (137-145); Total Bilirubin 0.6 mg/dL (0.2-1.3); Total Protein 5.9 g/dL (6.3-8.2)
[2020-05-21 07:19] LABS: AST 81 U/L (14-36); Potassium 4.4 mmol/L (3.5-5.1)
[2020-05-21 07:20] LABS: Alkaline Phosphatase 53 U/L (38-126); LDH 1339 U/L (313-618)
[2020-05-21] MEDS: OXYBUTYNIN 10 MG TAB.ER.24 PO SCH (07:33)
[2020-05-21] MEDS: MULTIVITAMINS, THERA 1 EACH TAB PO SCH (07:33)
[2020-05-21] MEDS: lisinopriL 20 MG TAB PO SCH (07:33)
[2020-05-21] MEDS: MAGNESIUM OXIDE 400 MG TAB PO SCH (07:33)
[2020-05-21] MEDS: amLODIPine 10 MG TAB PO SCH (07:34)
[2020-05-21] MEDS: ENOXAPARIN 40 MG/0.4 ML SYRINGE SQ SCH (07:34)
[2020-05-21] MEDS: DEXAMETHASONE SOD PHOSPHATE 10 MG/ML 1 ML VIAL IV SCH ×2 (07:34→21:03)
[2020-05-21] MEDS: ASCORBIC ACID 500 MG TAB PO SCH (07:34)
[2020-05-21] MEDS: CHOLECALCIFEROL 25 MCG (1000 IU) TABLET PO SCH (07:34)
[2020-05-21] MEDS: SYMBICORT 160-4.5 MCG INHALER INHALATION SCH ×2 (08:48→21:36)
[2020-05-21] MEDS ORDERED: diphenhydrAMINE 25 MG CAP PO PRN (10:15)
--- NOTE | 2020-05-21 12:52 | P.PN ---
Subjective Progress Note Date: 05/21/20 HISTORY OF PRESENT ILLNESS This is a pleasant 64-year-old female, patient of Dr. Rohit Jackson she has underlying asthma, not requiring any maintenance oral steroids or oxygen, mild intermittent in nature, on Proventil, she has a prior smoking history, quit at age 27, She comes into the emergency room with sore throat, body aches fever, and worsening shortness of breath, symptoms started 4/3 days had productive cough with diarrhea, muscle aches, chills, shortness of breath, for which it has progressed till 2 days prior admission, requiring now on ER visit. She also has chest pressure, no hemoptysis, patient denies any daily or DVT in the past. In the emergency room, she was noted to the hypoxemic with O2 sats at 88% on room air, requiring 2 L nasal cannula, she has CTA of the chest, showing borderline suboptimal opacification of pulmonary arterial system, no large ce ntral pulmonary emboli is identified, there are many lobar segmental and more distal arterial branches are nondiagnostic in embolizing, patchy bilateral infiltrates of groundglass consolidation, no pleural effusion, small hiatal hernia, indeterminate 1.5 cm nodularity left adrenal gland. Imaging consistent with confluent covered pneumonia, fatty liver, six-month follow-up for adrenal mass protocol was recommended. Left adrenal 1.5 cm adrenal nodule that shows 6.8 WBC, neutrophils normal, lymphocytes low at 0.6, d-dimer slightly elevated 0.77, creatinine 0.56, glucose 113, lactic acid normal 1.5, AST 70 elevated no sed rate no CRP no pro-calcitonin no ferritin no LDH obtained no EKG for review, consult was made with Dr. Garg, infectious disease 05/20: Patient states her breathing is a little bit better today and she slept well last night and thinks this has significantly impact her overall condition. She denies having any leg pain. She is currently on O2 at 3 L with pulse ox of 90%. Patient is been afebrile, heart rate 72, blood pressure 128/71. Repeat CBC reveals platelet count of 132, lymphocytes 0.87. Jazmine Tsai added. Patient is on day #2/5 of Remdesivir. 05/21: Patient is on day #3/5 of Remdesivir. [place] did not help with her insomnia last night and patient is requesting Benadryl which will be added. She states she is eating well. She is currently pulse oxing 87% on 13 L and was increased to 15 L nasal cannula with pulse ox of 90%. She has been afebrile, heart rate 75, blood pressure 160/67. REVIEW OF SYSTEMS Constitutional: No fever, no chills, no night sweats. No weight change. Reports weakness, Reports fatigue. No daytime sleepiness. EENT: No headache. No blurred vision or double vision, no loss of vision. No loss of Hearing, no ringing in the ears, no dizziness. No nasal drainage or congestion. No epistaxis. No sore throat. Lungs: Reports shortness of breath, Reports cough, no sputum production. No wheezing. Cardiovascular: No chest pain, no lower extremity edema. No palpitations. No paroxysmal nocturnal dyspnea. No orthopnea. No lightheadedness or dizziness. No syncopal episodes. Abdominal: No abdominal pain. No nausea, vomiting. No diarrhea. No constipation. No bloody or tarry stools. No loss of appetite. Genitourinary: No dysuria, increased frequency, urgency. No urinary retention. Musculoskeletal: No myalgias. No muscle weakness, no gait dysfunction, no frequent falls. No back pain. No neck pain. Integumentary: No wounds, no lesions. No rash or pruritus. No unusual bruising. No change in hair or nails. Neurologic: No aphasia. No facial droop. No change in mentation. No head injury. No headache. No paralysis. No paresthesia. Psychiatric: No depression. No anxiety. Endocrine: No abnormal blood sugars. No weight change. PHYSICAL EXAMINATION Gen: This is a 64-year-old morbidly obese female. Patient is resting in recliner and appears to be comfortable at rest. HEENT: Head is atraumatic, normocephalic. Pupils equal, round. Sclerae is anicteric. NECK: Supple. No JVD. No lymphadenopathy. No thyromegaly. LUNGS: Diminished bilaterally. No wheezes or rhonchi. No intercostal retractions. HEART: Regular rate and rhythm. No murmur. ABDOMEN: Soft. Bowel sounds are present. No masses. No tenderness. EXTREMITIES: No pedal edema. No calf tenderness. NEUROLOGICAL: Patient is awake, alert and oriented x3. Cranial nerves 2 through 12 are grossly intact. ASSESSMENT AND PLAN 1. Acute hypoxic respiratory failure secondary to Covid 19 pneumonia. Symptoms starting May 10 patient is on day #3/5 of Remdesivir, continue dexamethasone 6 mg IV twice daily, with vitamin C, vitamin D, and zinc, Lovenox 40 mg subcu daily, pulmonary consult appreciated. Continue oxygen therapy. 2. History of mild intermittent asthma with exacerbation, on when necessary albuterol, now that she is sick she was requiring Advair at home, consult Dr Olivia 3. Adrenal mass 1.5 cm indeterminate, recommended repeat CAT scan in 6 months, due November 2020 outpatient 4. Covid pneumonia with hypoxia. Consults with pulmonary medicine and infectious disease appreciated. 5. Johnson, with elevated AST, diet management 6. Hypertension, lisinopril 20 mg daily 7. DVT prophylaxis Lovenox 40 mg daily 8. Insomnia, start melatonin 6 mg at bedtime 9. BMI of 45, check A1c, DISCHARGE PLAN Home. Impression and plan of care have been directed as dictated by the signing physician. Katie Iniguez nurse practitioner acting as scribe for signing physician. Objective - Vital Signs Vital signs: Vital Signs Temp 98 F 05/21/20 05:28 Pulse 75 05/21/20 06:04 Resp 18 05/21/20 05:28 BP 116/67 05/21/20 05:28 Pulse Ox 90 L 05/21/20 08:49 Intake & Output 05/20/20 05/21/20 05/21/20 18:59 06:59 18:59 Other: # Voids 3 2 - Labs CBC & Chem 7: 05/21/20 06:18 05/21/20 06:27 Labs: Abnormal Lab Results - Last 24 Hours (Table) 05/20/20 05/21/20 05/21/20 Range/Units 05:37 06:18 06:18 Plt Count 140 L (150-450) k/uL D-Dimer 0.70 H (<0.60) mg/L FEU Carbon Dioxide 21.1 L (21.6-31.8) mmol/L Anion Gap 13.90 H (4.00-12.00) mmol/L BUN (7-17) mg/dL Creatinine (0.52-1.04) mg/dL BUN/Creatinine Ratio 30.00 H (12.00-20.00) Ratio Glucose 149 H (70-110) mg/dL Ferritin 600.7 H (10.0-291.0) ng/mL AST 65 H (13-35) U/L ALT (4-34) U/L Lactate Dehydrogenase 458 H (120-246) U/L C-Reactive Protein 14.8 H (0.0-0.8) mg/dL Total Protein 5.9 L (6.2-8.2) g/dL Albumin (3.5-5.0) g/dL 05/21/20 Range/Units 06:27 Plt Count (150-450) k/uL D-Dimer (<0.60) mg/L FEU Carbon Dioxide (21.6-31.8) mmol/L Anion Gap (4.00-12.00) mmol/L BUN 23 H (7-17) mg/dL Creatinine 0.50 L (0.52-1.04) mg/dL BUN/Creatinine Ratio (12.00-20.00) Ratio Glucose 142 H (70-110) mg/dL Ferritin (10.0-291.0) ng/mL AST 81 H (13-35) U/L ALT 47 H (4-34) U/L Lactate Dehydrogenase 1339 H (120-246) U/L C-Reactive Protein 74.5 H (0.0-0.8) mg/dL Total Protein 5.9 L (6.2-8.2) g/dL Albumin 3.1 L (3.5-5.0) g/dL
[2020-05-21 12:56] LABS: Ferritin 685.1 ng/mL (10.0-291.0)
--- NOTE | 2020-05-21 17:05 | P.PN ---
Subjective Progress Note Date: 05/21/20 Principal diagnosis: Hypoxia, pneumonia, COVID-19 64-year-old female patient, asthmatic, chemistry burst department with symptoms of sore throat and body aches and fever or worsening shortness of breath and the symptoms started on 05/10/2020.. The patient also had some diarrhea muscle aches and chills along with shortness of breath. Her breathing got worse over the past 2 days. The patient came into the emergency department. The patient was found to be hypoxic with pulse ox of 80% and the patient was placed on 2 L of oxygen by nasal cannula. The white cell count was 6.8 and the patient had lymphopenia. D-dimer was at 0.77, renal function was normal with a creatinine of 0.56. The platelet count was low at 121 and the patient's lactic acid level was at 1.5. The chest x-ray showing diffuse bilateral airspace disease and multifocal pulmonary opacities. CT angiogram showed no evidence of any pulmonary embolism. Patchy and confluent bilateral pulmonary consolidation and groundglass changes seen. The patient was also found to have a small hiatal hernia. Patient checked positive for COVID 19 infection and the patient is currently on Decadron 6 mg IV every 24 hours, Lovenox 40 mg subcu every 24 hours. Over the past 10-12 hours, the patient and wean down from 6 L down to 3 L of oxygen by nasal cannula. On 05/21/2020 patient seen in follow-up on medical surgical floor, she is currently up to 18 L on high flow nasal cannula, her pulse ox is anywhere from 87-90, does not appear to be in any acute distress, however easily desaturates, lung sounds reveal diffuse coarse crackles bilaterally. Occasional cough, chest x-ray, today's labs have been reviewed, d-dimer 0.70, electrolytes and renal profile were fairly unremarkable, LDH has increased to 1339, and CRP is 74.5, pro calcitonin level is negative at 0.07. No abdominal pain, no vomiting, no diarrhea. Objective - Vital Signs Vital signs: Vital Signs Temp 98.1 F 05/21/20 14:00 Pulse 63 05/21/20 14:00 Resp 20 05/21/20 14:00 BP 116/59 05/21/20 14:00 Pulse Ox 90 L 05/21/20 14:00 Intake & Output 05/20/20 05/21/20 05/21/20 18:59 06:59 18:59 Other: # Voids 3 2 - Exam GENERAL EXAM: Alert, very pleasant, 64-year-old white female on 15 L of oxygen with a pulse ox of 87-90% comfortable in no apparent distress. HEAD: Normocephalic/atraumatic. EYES: Normal reaction of pupils, equal size. Conjunctiva pink, sclera white. NOSE: Clear with pink turbinates. THROAT: No erythema or exudates. NECK: No masses, no JVD, no thyroid enlargement, no adenopathy. CHEST: No chest wall deformity. Symmetrical expansion. LUNGS: Equal air entry with diffuse crackles CVS: Regular rate and rhythm, normal S1 and S2, no gallops, no murmurs, no rubs ABDOMEN: Soft, nontender. No hepatosplenomegaly, normal bowel sounds, no guarding or rigidity. EXTREMITIES: No clubbing, no edema, no cyanosis, 2+ pulses and upper and lower extremities. MUSCULOSKELETAL: Muscle strength and tone normal. SPINE: No scoliosis or deformity SKIN: No rashes CENTRAL NERVOUS SYSTEM: Alert and oriented -3. No focal deficits, tone is normal in all 4 extremities. PSYCHIATRIC: Alert and oriented -3. Appropriate affect. Intact judgment and insight. - Labs CBC & Chem 7: 05/21/20 06:18 05/21/20 06:27 Labs: Abnormal Lab Results - Last 24 Hours (Table) 05/21/20 05/21/20 05/21/20 Range/Units 06:18 06:18 06:27 Plt Count 140 L (150-450) k/uL D-Dimer 0.70 H (<0.60) mg/L FEU BUN 23 H (7-17) mg/dL Creatinine 0.50 L (0.52-1.04) mg/dL Glucose 142 H (74-99) mg/dL Ferritin 685.1 H (10.0-291.0) ng/mL AST 81 H (14-36) U/L ALT 47 H (4-34) U/L Lactate Dehydrogenase 1339 H (313-618) U/L C-Reactive Protein 74.5 H (<10.0) mg/L Total Protein 5.9 L (6.3-8.2) g/dL Albumin 3.1 L (3.5-5.0) g/dL Assessment and Plan Plan: Assessment: 1 acute COVID 19 related pneumonia, symptoms started on 05/10/2020 and the patient presented emergency on 05/19/2020 with pneumonia by the pulmonary infiltrates confirmed and a chest x-ray to see angiogram. D-dimer is not elevated. CT abdomen showing no evidence of any pulmonary embolism. Bilateral groundglass pulmonary infiltrates and consolidations. Started Remdesivir on 05/20/2020 2 acute hypoxic respiratory failure currently on 6 L of oxygen by nasal cannula and this was weaned down to 3 L by nasal cannula 3 obesity with a BMI of 45.4 4 history of bronchial asthma maintained on inhalers such as Advair outpatient basis 5 MTZ 6 hypertension Plan: Continue current medical treatment, would continue Remdesivir, continue monitoring for any further worsening of dyspnea and hypoxemia, we'll consider IL-6 MAB if she continues to get worse, for now continue Remdesivir and IV steroids. Patient is on Lovenox 40 mg daily, and it is d-dimer has been noted. We'll follow I performed a history & physical examination of the patient and discussed their management with my nurse practitioner, oTma Cotto. I reviewed the nurse practitioner's note and agree with the documented findings and plan of care. Lung sounds are positive for diminished breath sounds. The findings and the impression was discussed with the patient. I attest to the documentation by the nurse practitioner. Time with Patient: Less than 30
--- NOTE | 2020-05-21 18:15 | PN ---
PROGRESS NOTE DATE OF SERVICE: 05/21/2020 REASON FOR FOLLOWUP: COVID-19 pneumonia. INTERVAL HISTORY: The patient is currently afebrile. The patient is feeling tired and weak, still requiring 15 L high-flow oxygen to maintain her saturation. Denies having any chest pain. Cough, but no worsening. No vomiting or diarrhea. PHYSICAL EXAMINATION: Blood pressure 116/59, pulse of 63, temperature 98.1. She is 90% on 15 L high-flow oxygen. General description is a middle-aged female lying in bed in no distress. RESPIRATORY SYSTEM: Unlabored breathing with decreased intensity of breath sounds. No wheeze. HEART: S1, S2. Regular rate and rhythm. ABDOMEN: Soft. No tenderness. LABS: Hemoglobin is 14.5, white count 9.2, BUN of 23, creatinine 0.50. DIAGNOSTIC IMPRESSION AND PLAN: Patient with acute COVID-19 pneumonia in this patient currently on remdesivir, day number 2 out of 5, in addition to Lovenox, dexamethasone, zinc and ascorbic acid. To continue and monitor clinical course closely. MMODL / IJN: [id number] /
[2020-05-21] MEDS: MELATONIN 3 MG TABLET PO SCH (21:04)
[2020-05-21] MEDS: REMDESIVIR 100 MG in SODIUM CHLORIDE 0.9% 250 ML IVPB SCH (21:05)
[2020-05-22] MEDS: ASCORBIC ACID 500 MG TAB PO SCH (07:08)
[2020-05-22] MEDS: CHOLECALCIFEROL 25 MCG (1000 IU) TABLET PO SCH (07:09)
[2020-05-22] MEDS: OXYBUTYNIN 10 MG TAB.ER.24 PO SCH (07:09)
[2020-05-22] MEDS: amLODIPine 10 MG TAB PO SCH (07:09)
[2020-05-22] MEDS: lisinopriL 20 MG TAB PO SCH (07:09)
[2020-05-22] MEDS: DEXAMETHASONE SOD PHOSPHATE 10 MG/ML 1 ML VIAL IV SCH ×2 (07:10→20:37)
[2020-05-22] MEDS: ENOXAPARIN 40 MG/0.4 ML SYRINGE SQ SCH (07:10)
[2020-05-22] MEDS: MULTIVITAMINS, THERA 1 EACH TAB PO SCH (07:10)
[2020-05-22] MEDS: MAGNESIUM OXIDE 400 MG TAB PO SCH (07:10)
[2020-05-22] MEDS: SYMBICORT 160-4.5 MCG INHALER INHALATION SCH ×2 (07:48→20:49)
--- NOTE | 2020-05-22 07:50 | XR ---
EXAMINATION TYPE: XR chest 1V DATE OF EXAM: 05/22/2020 COMPARISON: 05/19/2020 INDICATION: Short of breath, covid TECHNIQUE: Single frontal view of the chest is obtained. FINDINGS: The heart size is normal. The pulmonary vasculature is normal. There are patchy infiltrates present bilaterally. Findings are worsening over the interval IMPRESSION: 1. Worsening bilateral patchy infiltrates.
[2020-05-22] MEDS ORDERED: FUROSEMIDE 10 MG/ML 4 ML VIAL IV STA (10:05)
--- NOTE | 2020-05-22 13:58 | P.PN ---
Subjective Progress Note Date: 05/22/20 HISTORY OF PRESENT ILLNESS This is a pleasant 64-year-old female, patient of Dr. Rohit Jackson she has underlying asthma, not requiring any maintenance oral steroids or oxygen, mild intermittent in nature, on Proventil, she has a prior smoking history, quit at age 27, She comes into the emergency room with sore throat, body aches fever, and worsening shortness of breath, symptoms started 4/3 days had productive cough with diarrhea, muscle aches, chills, shortness of breath, for which it has progressed till 2 days prior admission, requiring now on ER visit. She also has chest pressure, no hemoptysis, patient denies any daily or DVT in the past. In the emergency room, she was noted to the hypoxemic with O2 sats at 88% on room air, requiring 2 L nasal cannula, she has CTA of the chest, showing borderline suboptimal opacification of pulmonary arterial system, no large ce ntral pulmonary emboli is identified, there are many lobar segmental and more distal arterial branches are nondiagnostic in embolizing, patchy bilateral infiltrates of groundglass consolidation, no pleural effusion, small hiatal hernia, indeterminate 1.5 cm nodularity left adrenal gland. Imaging consistent with confluent covered pneumonia, fatty liver, six-month follow-up for adrenal mass protocol was recommended. Left adrenal 1.5 cm adrenal nodule that shows 6.8 WBC, neutrophils normal, lymphocytes low at 0.6, d-dimer slightly elevated 0.77, creatinine 0.56, glucose 113, lactic acid normal 1.5, AST 70 elevated no sed rate no CRP no pro-calcitonin no ferritin no LDH obtained no EKG for review, consult was made with Dr. aGrg, infectious disease 05/20: Patient states her breathing is a little bit better today and she slept well last night and thinks this has significantly impact her overall condition. She denies having any leg pain. She is currently on O2 at 3 L with pulse ox of 90%. Patient is been afebrile, heart rate 72, blood pressure 128/71. Repeat CBC reveals platelet count of 132, lymphocytes 0.87. Jazmine Tsai added. Patient is on day #2/5 of Remdesivir. 05/21: Patient is on day #3/5 of Remdesivir. [place] did not help with her insomnia last night and patient is requesting Benadryl which will be added. She states she is eating well. She is currently pulse oxing 87% on 13 L and was increased to 15 L nasal cannula with pulse ox of 90%. She has been afebrile, heart rate 75, blood pressure 160/67. 05/22: Patient's pulse ox is 90% on high flow nasal cannula 15 L with nonrebreather mask as well. Patient is been afebrile, heart rate 74, blood pressure 129/60. Repeat chest x-ray reveals worsening bilateral patchy infiltrates. Patient states that she slept better last night and received Benadryl. She continues to have cough. She states she is eating well. No choking episodes. Patient has received 3 doses of Remdesivir. Today, pulmonary medicine has ordered Tocilizumab. Patient is also continued on Symbicort, dexamethasone, Lovenox, vitamins. REVIEW OF SYSTEMS Constitutional: No fever, no chills, no night sweats. No weight change. Reports weakness, Reports fatigue. No daytime sleepiness. EENT: No headache. No blurred vision or double vision, no loss of vision. No loss of Hearing, no ringing in the ears, no dizziness. No nasal drainage or congestion. No epistaxis. No sore throat. Lungs: Reports shortness of breath continued, Reports cough, no sputum production. No wheezing. Cardiovascular: No chest pain, no lower extremity edema. No palpitations. No paroxysmal nocturnal dyspnea. No orthopnea. No lightheadedness or dizziness. No syncopal episodes. Abdominal: No abdominal pain. No nausea, vomiting. No diarrhea. No constipation. No bloody or tarry stools. No loss of appetite. Genitourinary: No dysuria, increased frequency, urgency. No urinary retention. Musculoskeletal: No myalgias. No muscle weakness, no gait dysfunction, no frequent falls. No back pain. No neck pain. Integumentary: No wounds, no lesions. No rash or pruritus. No unusual bruising. No change in hair or nails. Neurologic: No aphasia. No facial droop. No change in mentation. No head injury. No headache. No paralysis. No paresthesia. Psychiatric: No depression. No anxiety. Reports insomnia. Endocrine: No abnormal blood sugars. No weight change. PHYSICAL EXAMINATION Gen: This is a 64-year-old morbidly obese female. Patient is resting in recliner and appears to be comfortable at rest. HEENT: Head is atraumatic, normocephalic. Pupils equal, round. Sclerae is anicteric. NECK: Supple. No JVD. No lymphadenopathy. No thyromegaly. LUNGS: Diminished bilaterally. No wheezes or rhonchi. No intercostal retractions. HEART: Regular rate and rhythm. No murmur. ABDOMEN: Soft. Bowel sounds are present. No masses. No tenderness. EXTREMITIES: No pedal edema. No calf tenderness. NEUROLOGICAL: Patient is awake, alert and oriented x3. Cranial nerves 2 through 12 are grossly intact. ASSESSMENT AND PLAN 1. Acute hypoxic respiratory failure secondary to Covid 19 pneumonia. Symptoms starting May 10 patient is status post 3 doses of Remdesivir, she is scheduled for one dose of Tocilizumab today, continue dexamethasone 6 mg IV twice daily, with vitamin C, vitamin D, and zinc, Lovenox 40 mg subcu daily, pulmonary consult appreciated. Continue oxygen therapy. 2. History of mild intermittent asthma with exacerbation, on when necessary albuterol, now that she is sick she was requiring Advair at home, consult Dr Olivia 3. Adrenal mass 1.5 cm indeterminate, recommended repeat CAT scan in 6 months, due November 2020 outpatient 4. Covid pneumonia with hypoxia. Consults with pulmonary medicine and infectious disease appreciated. 5. Johnson, with elevated AST, diet management 6. Hypertension, lisinopril 20 mg daily 7. DVT prophylaxis Lovenox 40 mg daily 8. Insomnia, start melatonin 6 mg at bedtime 9. BMI of 45, A1c is 5.4. DISCHARGE PLAN Home. Impression and plan of care have been directed as dictated by the signing physician. Katie Iniguez nurse practitioner acting as scribe for signing ph ysician. Objective - Vital Signs Vital signs: Vital Signs Temp 97.5 F L 05/22/20 05:44 Pulse 74 05/22/20 05:44 Resp 20 05/22/20 05:44 BP 129/60 05/22/20 05:44 Pulse Ox 90 L 05/22/20 05:44 Intake & Output 05/21/20 05/22/20 05/22/20 18:59 06:59 18:59 Other: # Voids 3 - Labs CBC & Chem 7: 05/21/20 06:18 05/21/20 06:27 Labs: Abnormal Lab Results - Last 24 Hours (Table) 05/21/20 Range/Units 06:27 Ferritin 685.1 H (10.0-291.0) ng/mL
[2020-05-22] MEDS ORDERED: TOCILIZUMAB 800 MG in SODIUM CHLORIDE 0.9% 60 ML IV ONE (14:00)
[2020-05-22] MEDS ORDERED: TOCILIZUMAB 800 MG in SODIUM CHLORIDE 0.9% 80 ML IV ONE (14:00)
--- NOTE | 2020-05-22 14:47 | P.PN ---
Subjective Progress Note Date: 05/22/20 Principal diagnosis: Hypoxia, pneumonia, COVID-19 64-year-old female patient, asthmatic, chemistry burst department with symptoms of sore throat and body aches and fever or worsening shortness of breath and the symptoms started on 05/10/2020.. The patient also had some diarrhea muscle aches and chills along with shortness of breath. Her breathing got worse over the past 2 days. The patient came into the emergency department. The patient was found to be hypoxic with pulse ox of 80% and the patient was placed on 2 L of oxygen by nasal cannula. The white cell count was 6.8 and the patient had lymphopenia. D-dimer was at 0.77, renal function was normal with a creatinine of 0.56. The platelet count was low at 121 and the patient's lactic acid level was at 1.5. The chest x-ray showing diffuse bilateral airspace disease and multifocal pulmonary opacities. CT angiogram showed no evidence of any pulmonary embolism. Patchy and confluent bilateral pulmonary consolidation and groundglass changes seen. The patient was also found to have a small hiatal hernia. Patient checked positive for COVID 19 infection and the patient is currently on Decadron 6 mg IV every 24 hours, Lovenox 40 mg subcu every 24 hours. Over the past 10-12 hours, the patient and wean down from 6 L down to 3 L of oxygen by nasal cannula. On 05/21/2020 patient seen in follow-up on medical surgical floor, she is currently up to 18 L on high flow nasal cannula, her pulse ox is anywhere from 87-90, does not appear to be in any acute distress, however easily desaturates, lung sounds reveal diffuse coarse crackles bilaterally. Occasional cough, chest x-ray, today's labs have been reviewed, d-dimer 0.70, electrolytes and renal profile were fairly unremarkable, LDH has increased to 1339, and CRP is 74.5, pro calcitonin level is negative at 0.07. No abdominal pain, no vomiting, no diarrhea. On the 05/22/2020 patient seen in follow-up on medical surgical floor, today is day 3 of Remdesivir, however her oxygenation has much worsened, and she is on nonrebreather in addition to high flow nasal cannula pulse ox is 92%, is easily desaturate, but appears to be in no acute distress, she is afebrile, hemodynamically she stable, chest x-ray today shows worsening bilateral patchy infiltrates. She has been on Lovenox 40 mg daily, and Decadron 6 mg twice daily, Objective - Vital Signs Vital signs: Vital Signs Temp 98.4 F 05/22/20 14:00 Pulse 74 05/22/20 14:00 Resp 20 05/22/20 14:00 BP 136/73 05/22/20 14:00 Pulse Ox 92 L 05/22/20 14:00 Intake & Output 05/21/20 05/22/20 05/22/20 18:59 06:59 18:59 Other: # Voids 3 - Exam GENERAL EXAM: Alert, very pleasant, 64-year-old white female on 15 L of high flow oxygen in addition to 100% nonrebreather mask with a pulse ox of 87-90% comfortable in no apparent distress. HEAD: Normocephalic/atraumatic. EYES: Normal reaction of pupils, equal size. Conjunctiva pink, sclera white. NOSE: Clear with pink turbinates. THROAT: No erythema or exudates. NECK: No masses, no JVD, no thyroid enlargement, no adenopathy. CHEST: No chest wall deformity. Symmetrical expansion. LUNGS: Equal air entry with diffuse crackles CVS: Regular rate and rhythm, normal S1 and S2, no gallops, no murmurs, no rubs ABDOMEN: Soft, nontender. No hepatosplenomegaly, normal bowel sounds, no guarding or rigidity. EXTREMITIES: No clubbing, no edema, no cyanosis, 2+ pulses and upper and lower extremities. MUSCULOSKELETAL: Muscle strength and tone normal. SPINE: No scoliosis or deformity SKIN: No rashes CENTRAL NERVOUS SYSTEM: Alert and oriented -3. No focal deficits, tone is normal in all 4 extremities. PSYCHIATRIC: Alert and oriented -3. Appropriate affect. Intact judgment and insight. - Labs CBC & Chem 7: 05/21/20 06:18 05/21/20 06:27 Assessment and Plan Plan: Assessment: 1 acute COVID 19 related pneumonia, symptoms started on 05/10/2020 and the patient presented emergency on 05/19/2020 with pneumonia by the pulmonary infiltrates confirmed and a chest x-ray to see angiogram. D-dimer is not elevated. CT abdomen showing no evidence of any pulmonary embolism. Bilateral groundglass pulmonary infiltrates and consolidations. Started Remdesivir on 05/20/2020, and that Remdesivir postop today on 05/15/2020 in view of worsening hypoxia and patient will be started on Tocilizuman 2 acute hypoxic respiratory failure currently on 6 L of oxygen by nasal cannula and this was weaned down to 3 L by nasal cannula 3 obesity with a BMI of 45.4 4 history of bronchial asthma maintained on inhalers such as Advair outpatient basis 5 MTZ 6 hypertension Plan: We'll discontinue that Remdesivir, patient is having worsening oxygenation, and worsening infiltrates on her chest x-ray, qualifies for Tocilizumab, we'll give her 1 dose of 800 mg IV piggyback today, will follow inflammatory markers chest x-ray, monitor for any worsening dyspnea, hypoxemia, and respiratory fatigue, overall prognosis is guarded I performed a history & physical examination of the patient and discussed their management with my nurse practitioner, Toma Cotto. I reviewed the nurse practitioner's note and agree with the documented findings and plan of care. Lung sounds are positive for diminished breath sounds. The findings and the impression was discussed with the patient. I attest to the documentation by the nurse practitioner. Time with Patient: Less than 30
--- NOTE | 2020-05-22 15:38 | PN ---
PROGRESS NOTE DATE OF SERVICE: 05/22/2020. REASON FOR FOLLOWUP: COVID-19 pneumonia. INTERVAL HISTORY: The patient is afebrile. The patient mentioned she is breathing slightly comfortably today. Still requiring non-rebreather to maintain her sats. The patient denies having any chest pain or any worsening cough. No vomiting. No abdominal pain or diarrhea. PHYSICAL EXAMINATION: Blood pressure 136/73, pulse of 74, temperature 98.4. She is 92% on 15 L high-flow oxygen. General description is a middle-aged female lying in bed in no distress. RESPIRATORY SYSTEM: Unlabored breathing, coarse breath sounds bilaterally. No wheeze. HEART: S1, S2. Regular rate and rhythm. ABDOMEN: Soft, no tenderness. LABS: Hemoglobin is 14.5, white count 9.2, BUN of 23, creatinine 0.50. DIAGNOSTIC IMPRESSION AND PLAN: Patient with acute COVID-19 infection in this patient who did have minimal clinical improvement. Patient to continue with the dexamethasone, Lovenox, zinc, . The patient has been dose of Actemra response. Will monitor clinical course closely. MMODL / IJN: [id number] /
[2020-05-22] MEDS: MELATONIN 3 MG TABLET PO SCH (20:37)
--- NOTE | 2020-05-23 07:32 | XR ---
EXAMINATION TYPE: XR chest 1V portable DATE OF EXAM: 05/23/2020 Comparison: 05/22/2020 Clinical History: 64-year-old female shortness of breath, covid Findings: Left heart margin shows greater degree of obscuration as compared to prior exam. Otherwise, bilateral confluent airspace disease, left greater than right is relatively unchanged. No pleural effusion. Impression: Diffuse bilateral airspace disease, left greater than right relatively unchanged. There may be slight worsening within the lingula.
[2020-05-23] MEDS: SYMBICORT 160-4.5 MCG INHALER INHALATION SCH ×2 (07:45→20:34)
[2020-05-23] MEDS: ENOXAPARIN 40 MG/0.4 ML SYRINGE SQ SCH (09:11)
[2020-05-23] MEDS: lisinopriL 20 MG TAB PO SCH (09:11)
[2020-05-23] MEDS: MULTIVITAMINS, THERA 1 EACH TAB PO SCH (09:11)
[2020-05-23] MEDS: DEXAMETHASONE SOD PHOSPHATE 10 MG/ML 1 ML VIAL IV SCH ×2 (09:11→20:20)
[2020-05-23] MEDS: amLODIPine 10 MG TAB PO SCH (09:11)
[2020-05-23] MEDS: OXYBUTYNIN 10 MG TAB.ER.24 PO SCH (09:11)
[2020-05-23] MEDS: MAGNESIUM OXIDE 400 MG TAB PO SCH (09:11)
[2020-05-23] MEDS: CHOLECALCIFEROL 25 MCG (1000 IU) TABLET PO SCH (09:11)
[2020-05-23] MEDS: ASCORBIC ACID 500 MG TAB PO SCH (09:11)
[2020-05-23] MEDS ORDERED: FUROSEMIDE 10 MG/ML 4 ML VIAL IV STA (09:33)
[2020-05-23 09:59] LABS: HCT 43.9 % (34.0-46.0); HGB 14.1 gm/dL (11.4-16.0); MCH 28.9 pg (25.0-35.0); MCHC 32.2 g/dL (31.0-37.0); MCV 89.8 fL (80.0-100.0); Mean Platelet Volume 9.6; Platelet Count 208 k/uL (150-450); RBC 4.89 m/uL (3.80-5.40); RDW 14.2 % (11.5-15.5); WBC 11.2 k/uL (3.8-10.6)
[2020-05-23 10:56] LABS: ALT 62 U/L (4-34); AST 61 U/L (14-36); African American GFR (CKD) >90 (>60 ml/min/1.73 sqM); Albumin 3.1 g/dL (3.5-5.0); Albumin/Globulin Ratio 1.2; Alkaline Phosphatase 71 U/L (38-126); Anion Gap 4 mmol/L; Blood Urea Nitrogen 33 mg/dL (7-17); C Reactive Protein 37.2 mg/L (<10.0); Calcium 8.6 mg/dL (8.4-10.2); Carbon Dioxide 36 mmol/L (22-30); Chloride 97 mmol/L (98-107); Globulin 2.6 g/dL; Glucose 126 mg/dL (74-99); LDH 1343 U/L (313-618); Non-African American GFR(CKD) >90 (>60 ml/min/1.73 sqM); Potassium 4.5 mmol/L (3.5-5.1); Sodium 137 mmol/L (137-145); Total Bilirubin 0.6 mg/dL (0.2-1.3); Total Protein 5.7 g/dL (6.3-8.2)
--- NOTE | 2020-05-23 14:08 | P.PN ---
<Katie Iniguez A - Last Filed: 05/23/20 14:06> Subjective Progress Note Date: 05/23/20 HISTORY OF PRESENT ILLNESS This is a pleasant 64-year-old female, patient of Dr. Rohit Jackson she has underlying asthma, not requiring any maintenance oral steroids or oxygen, mild intermittent in nature, on Proventil, she has a prior smoking history, quit at age 27, She comes into the emergency room with sore throat, body aches fever, and worsening shortness of breath, symptoms started 4/3 days had productive cough with diarrhea, muscle aches, chills, shortness of breath, for which it has progressed till 2 days prior admission, requiring now on ER visit. She also has chest pressure, no hemoptysis, patient denies any daily or DVT in the past. In the emergency room, she was noted to the hypoxemic with O2 sats at 88% on room air, requiring 2 L nasal cannula, she has CTA of the chest, showing borde rline suboptimal opacification of pulmonary arterial system, no large central pulmonary emboli is identified, there are many lobar segmental and more distal arterial branches are nondiagnostic in embolizing, patchy bilateral infiltrates of groundglass consolidation, no pleural effusion, small hiatal hernia, indeterminate 1.5 cm nodularity left adrenal gland. Imaging consistent with confluent covered pneumonia, fatty liver, six-month follow-up for adrenal mass protocol was recommended. Left adrenal 1.5 cm adrenal nodule that shows 6.8 WBC, neutrophils normal, lymphocytes low at 0.6, d-dimer slightly elevated 0.77, creatinine 0.56, glucose 113, lactic acid normal 1.5, AST 70 elevated no sed rate no CRP no pro-calcitonin no ferritin no LDH obtained no EKG for review, consult was made with Dr. Garg, infectious disease 05/20: Patient states her breathing is a little bit better today and she slept well last night and thinks this has significantly impact her overall condition. She denies having any leg pain. She is currently on O2 at 3 L with pulse ox of 90%. Patient is been afebrile, heart rate 72, blood pressure 128/71. Repeat CBC reveals platelet count of 132, lymphocytes 0.87. Jazmine Tsai added. Patient is on day #2/5 of Remdesivir. 05/21: Patient is on day #3/5 of Remdesivir. Carolina did not help with her insomnia last night and patient is requesting Benadryl which will be added. She states she is eating well. She is currently pulse oxing 87% on 13 L and was increased to 15 L nasal cannula with pulse ox of 90%. She has been afebrile, heart rate 75, blood pressure 160/67. 05/22: Patient's pulse ox is 90% on high flow nasal cannula 15 L with nonrebreather mask as well. Patient is been afebrile, heart rate 74, blood pressure 129/60. Repeat chest x-ray reveals worsening bilateral patchy infiltrates. Patient states that she slept better last night and received Benadryl. She continues to have cough. She states she is eating well. No choking episodes. Patient has received 3 doses of Remdesivir. Today, pulmonary medicine has ordered Tocilizumab. Patient is also continued on Symbicort, dexamethasone, Lovenox, vitamins. 05/23: Patient continues to have shortness of breath with his more comfortable today. She did have a bowel movement last night after prune juice. She continues to have some lower extremity edema despite receiving Lasix yesterday. Repeat dose of IV Lasix 40 mg 1 today. Patient has been afebrile, heart rate 66, respiratory rate 25, blood pressure 124/77, pulse ox 90% on 15 L high flow nasal cannula and nonrebreather. Repeat blood work reveals WBC 1.2 otherwise CBC is normal. D-dimer 1.38. BUN 33 and creatinine 0.71. AST 61, ALT 62, LDH 1343. C-reactive protein 37.2 which is improved from last draw. Repeat chest x-ray reveals diffuse bilateral airspace disease left greater than right unchanged. Slight worsening within the lingula. REVIEW OF SYSTEMS Constitutional: No fever, no chills, no night sweats. No weight change. Reports weakness, Reports fatigue. No daytime sleepiness. EENT: No headache. No blurred vision or double vision, no loss of vision. No dizziness. No nasal drainage or congestion. No epistaxis. No sore throat. Lungs: Reports shortness of breath continued, Reports cough, no sputum production. No wheezing. Cardiovascular: No chest pain, no lower extremity edema. No palpitations. No paroxysmal nocturnal dyspnea. No orthopnea. No lightheadedness or dizziness. No syncopal episodes. Abdominal: No abdominal pain. No nausea, vomiting. No diarrhea. No constipation. No bloody or tarry stools. No loss of appetite. Genitourinary: No dysuria, increased frequency, urgency. No urinary retention. Musculoskeletal: No myalgias. No muscle weakness, no gait dysfunction, no frequent falls. No back pain. No neck pain. Integumentary: No wounds, no lesions. No rash or pruritus. No unusual bruising. No change in hair or nails. Neurologic: No aphasia. No facial droop. No change in mentation. No head injury. No headache. No paralysis. No paresthesia. Psychiatric: No depression. No anxiety. Reports insomnia is improved. Endocrine: No abnormal blood sugars. No weight change. PHYSICAL EXAMINATION Gen: This is a 64-year-old morbidly obese female. Patient is resting in recliner and appears to be comfortable at rest. HEENT: Head is atraumatic, normocephalic. Pupils equal, round. Sclerae is anicteric. NECK: Supple. No JVD. No lymphadenopathy. No thyromegaly. LUNGS: Diminished bilaterally. No wheezes or rhonchi. No intercostal retractions. HEART: Regular rate and rhythm. No murmur. ABDOMEN: Soft. Bowel sounds are present. No masses. No tenderness. EXTREMITIES: No pedal edema. No calf tenderness. NEUROLOGICAL: Patient is awake, alert and oriented x3. Cranial nerves 2 through 12 are grossly intact. ASSESSMENT AND PLAN 1. Acute hypoxic respiratory failure secondary to Covid 19 pneumonia. Symptoms starting May 10 patient is status post 3 doses of Remdesivir, she is scheduled for one dose of Tocilizumab 05/22, continue dexamethasone 6 mg IV twice daily, with vitamin C, vitamin D, and zinc, Lovenox 40 mg subcu daily, pulmonary consult appreciated. Continue oxygen therapy, currently on 15 L high flow nasal cannula and nonrebreather. 2. History of mild intermittent asthma with exacerbation, on when necessary albuterol, now that she is sick she was requiring Advair at home, consult Dr Olivia 3. Adrenal mass 1.5 cm indeterminate, recommended repeat CAT scan in 6 months, due November 2020 outpatient 4. Covid pneumonia with hypoxia. Consults with pulmonary medicine and infectious disease appreciated. 5. Johnson, with elevated AST, diet management 6. Hypertension, lisinopril 20 mg daily 7. DVT prophylaxis Lovenox 40 mg daily 8. Insomnia, start melatonin 6 mg at bedtime 9. BMI of 45, A1c is 5.4. DISCHARGE PLAN Home. Impression and plan of care have been directed as dictated by the signing physician. Katie Iniguez nurse practitioner acting as scribe for signing physician. Objective - Vital Signs Vital signs: Vital Signs Temp 97.5 F L 05/23/20 05:54 Pulse 63 05/23/20 05:54 Resp 20 05/23/20 05:54 BP 130/71 05/23/20 05:54 Pulse Ox 90 L 05/23/20 05:54 Intake & Output 05/22/20 05/23/20 05/23/20 18:59 06:59 18:59 Other: Voiding Method Bedside Commode # Voids 3 1 # Bowel Movements 1 - Labs CBC & Chem 7: 05/23/20 07:13 05/23/20 07:13 <Regina Hilliard - Last Filed: 05/30/20 13:43> Objective - Vital Signs Vital signs: Vital Signs Temp 97.4 F L 05/30/20 09:29 Pulse 51 L 05/30/20 09:29 Resp 18 05/30/20 09:29 BP 127/84 05/30/20 09:29 Pulse Ox 91 L 05/30/20 09:29 Intake & Output 05/29/20 05/30/20 05/30/20 18:59 06:59 18:59 Output Total 1 1 Balance -1 -1 Output: Stool 1 1 Other: Voiding Method Bedside Commode Bedside Commode # Voids 4 2 - Labs CBC & Chem 7: 05/23/20 07:13 05/28/20 06:36
--- NOTE | 2020-05-23 15:53 | P.PN ---
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 The patient also had some diarrhea muscle aches and chills along with shortness of breath. Her breathing got worse over the past 2 days. The patient came into the emergency department. The patient was found to be hypoxic with pulse ox of 80% and the patient was placed on 2 L of oxygen by nasal cannula. The white cell count was 6.8 and the patient had lymphopenia. D-dimer was at 0.77, renal function was normal with a creatinine of 0.56. The platelet count was low at 121 and the patient's lactic acid level was at 1.5. The chest x-ray showing diffuse bilateral airspace disease and multifocal pulmonary opacities. CT angiogram showed no evidence of any pulmonary embolism. Patchy and confluent bilateral pulmonary consolidation and groundglass changes seen. The patient was also found to have a small hiatal hernia. Patient checked positive for COVID 19 infection and the patient is currently on Decadron 6 mg IV every 24 hours, Lovenox 40 mg subcu every 24 hours. Over the past 10-12 hours, the patient and wean down from 6 L down to 3 L of oxygen by nasal cannula. On 05/21/2020 patient seen in follow-up on medical surgical floor, she is currently up to 18 L on high flow nasal cannula, her pulse ox is anywhere from 87-90, does not appear to be in any acute distress, however easily desaturates, lung sounds reveal diffuse coarse crackles bilaterally. Occasional cough, chest x-ray, today's labs have been reviewed, d-dimer 0.70, electrolytes and renal profile were fairly unremarkable, LDH has increased to 1339, and CRP is 74.5, p ro calcitonin level is negative at 0.07. No abdominal pain, no vomiting, no diarrhea. On the 05/22/2020 patient seen in follow-up on medical surgical floor, today is day 3 of Remdesivir, however her oxygenation has much worsened, and she is on nonrebreather in addition to high flow nasal cannula pulse ox is 92%, is easily desaturate, but appears to be in no acute distress, she is afebrile, hemod ynamically she stable, chest x-ray today shows worsening bilateral patchy infiltrates. She has been on Lovenox 40 mg daily, and Decadron 6 mg twice daily, On 05/23/2020, the patient is being seen for a follow-up. Note that this patient came in with hypoxic respiratory failure and had oxidation progressively got worse. She was on REM treatment and this was discontinued and the patient was switched to Tocilizumab because of her decline and worsening in her oxygenation patient was given a dose of 800 mg IV 1. On today's evaluation the patient is on 100% on a beta facemask in addition to 15 L per minute nasal cannula. She is able to maintain saturation above 90%. She is on Decadron 6 mg IV every 12 hours and she is also on Lovenox 40 mg subcu every 24 hours. No fever. No chills. No chest pain. No worsening shortness of breath. No other issues for now. We are still monitoring the oxidation very closely as the patient has a borderline pulmonary status and she is still easily desaturating with mobility and activity and cough and a movement and talking. The white cell count is at 11. D-dimer is at 1.38. The LDH level is 1343, CRP is 37.2 and the rest of the blood work and electrodes are all within normal limits. Objective - Vital Signs Vital signs: Vital Signs Temp 97.9 F 05/23/20 14:00 Pulse 66 05/23/20 14:00 Resp 27 H 05/23/20 14:00 BP 127/70 05/23/20 14:00 Pulse Ox 90 L 05/23/20 14:00 Intake & Output 05/22/20 05/23/20 05/23/20 18:59 06:59 18:59 Other: Voiding Method Bedside Commode Bedside Commode # Voids 3 1 3 # Bowel Movements 1 - Exam GENERAL EXAM: Alert, very pleasant, 64-year-old white female on 15 L of high flow oxygen in addition to 100% nonrebreather mask with a pulse ox of 87-90% comfortable in no apparent distress. HEAD: Normocephalic/atraumatic. EYES: Normal reaction of pupils, equal size. Conjunctiva pink, sclera white. NOSE: Clear with pink turbinates. THROAT: No erythema or exudates. NECK: No masses, no JVD, no thyroid enlargement, no adenopathy. CHEST: No chest wall deformity. Symmetrical expansion. LUNGS: Equal air entry with diffuse crackles CVS: Regular rate and rhythm, normal S1 and S2, no gallops, no murmurs, no rubs ABDOMEN: Soft, nontender. No hepatosplenomegaly, normal bowel sounds, no guarding or rigidity. EXTREMITIES: No clubbing, no edema, no cyanosis, 2+ pulses and upper and lower extremities. MUSCULOSKELETAL: Muscle strength and tone normal. SPINE: No scoliosis or deformity SKIN: No rashes CENTRAL NERVOUS SYSTEM: Alert and oriented -3. No focal deficits, tone is normal in all 4 extremities. PSYCHIATRIC: Alert and oriented -3. Appropriate affect. Intact judgment and insight. - Labs CBC & Chem 7: 05/23/20 07:13 05/23/20 07:13 Labs: Abnormal Lab Results - Last 24 Hours (Table) 05/23/20 05/23/20 05/23/20 Range/Units 07:13 07:13 07:13 WBC 11.2 H (3.8-10.6) k/uL D-Dimer 1.38 H (<0.60) mg/L FEU Chloride 97 L (98-107) mmol/L Carbon Dioxide 36 H (22-30) mmol/L BUN 33 H (7-17) mg/dL Glucose 126 H (74-99) mg/dL AST 61 H (14-36) U/L ALT 62 H (4-34) U/L Lactate Dehydrogenase 1343 H (313-618) U/L C-Reactive Protein 37.2 H (<10.0) mg/L Total Protein 5.7 L (6.3-8.2) g/dL Albumin 3.1 L (3.5-5.0) g/dL Assessment and Plan Plan: 1 acute COVID 19 related pneumonia, symptoms started on 05/10/2020 and the patient presented emergency on 05/19/2020 with pneumonia by the pulmonary infiltrates confirmed and a chest x-ray to see angiogram. D-dimer is not elevated. CT abdomen showing no evidence of any pulmonary embolism. Bilateral groundglass pulmonary infiltrates and consolidations. Started Remdesivir on 05/20/2020, and that Remdesivir postop today on 05/15/2020 in view of worsening hypoxia and patient will be started on Tocilizumab and the patient received a dose of 800 mg IV. Meanwhile, the oxygenation remains stable on 100% on a beta facemask and the patient is also on 15 L of oxygen by nasal cannula. The wolf shoemaker is calm and comfortable yet she is quite borderline in terms of her oxygenation acute easily desaturate with mobility and movement and talking. 2 acute hypoxic respiratory failure 3 obesity with a BMI of 45.4 4 history of bronchial asthma maintained on inhalers such as Advair outpatient b asis 5 MTZ 6 hypertension Plan Continue same oxygen flow with 100% on a beta facemask and 15 L high flow Continue steroids Continue anticoagulation Chest x-rays have been essentially stable diffuse bilateral pulmonary infiltrates Clinically stable compared to yesterday and there is no interval worsening and oxygenation we'll continue to follow make further recommendations based on her progress. Her condition is still marginal and oxygen requirements remain quite elevated and the patient's chest x-ray is not showing any major improvement. As such the patient is still considered a high risk for developing further arrest 30 failure requiring intubation mechanical ventilation and this will be monitored very closely.
[2020-05-23] MEDS: MELATONIN 3 MG TABLET PO SCH (20:20)
--- NOTE | 2020-05-23 20:29 | PN ---
PROGRESS NOTE DATE OF SERVICE: 05/23/2020 REASON FOR FOLLOWUP: COVID-19 pneumonia. INTERVAL HISTORY: The patient is afebrile, breathing about the same; no worsening and no improvement compared to yesterday. The patient denies having any chest pain. Cough but no sputum production. No abdominal pain or diarrhea. PHYSICAL EXAMINATION: Blood pressure is 131/75, pulse of 56, temperature 98.2. She is 95% on high-flow nasal cannula oxygen. General description is a middle-aged female lying in bed in no distress. RESPIRATORY SYSTEM: Unlabored breathing with decreased intensity of breath sounds. No wheeze. HEART: S1, S2. Regular rate and rhythm. ABDOMEN: Soft. No tenderness. LABS: Hemoglobin is 14.9, white count 11.2. D-dimer is 1.38. Liver enzymes have decreased. CRP is 37.2. DIAGNOSTIC IMPRESSION AND PLAN: Patient with acute COVID-19 pneumonia in this patient with no clinical worsening condition remains critical. She is covered with dexamethasone, Lovenox, zinc and ascorbic acid along with respiratory support. Monitor clinical course closely. MMODL / IJN: [id number] /
[2020-05-23 21:04] LABS: Ferritin 397.4 ng/mL (10.0-291.0)
[2020-05-24] MEDS: CHOLECALCIFEROL 25 MCG (1000 IU) TABLET PO SCH (08:08)
[2020-05-24] MEDS: lisinopriL 20 MG TAB PO SCH (08:08)
[2020-05-24] MEDS: MAGNESIUM OXIDE 400 MG TAB PO SCH (08:08)
[2020-05-24] MEDS: MULTIVITAMINS, THERA 1 EACH TAB PO SCH (08:08)
[2020-05-24] MEDS: amLODIPine 10 MG TAB PO SCH (08:08)
[2020-05-24] MEDS: OXYBUTYNIN 10 MG TAB.ER.24 PO SCH (08:08)
[2020-05-24] MEDS: ASCORBIC ACID 500 MG TAB PO SCH (08:08)
[2020-05-24] MEDS: SENNOSIDES-DOCUSATE SODIUM 1 EACH TAB PO SCH (08:08)
[2020-05-24] MEDS: ENOXAPARIN 40 MG/0.4 ML SYRINGE SQ SCH (08:08)
[2020-05-24] MEDS: DEXAMETHASONE SOD PHOSPHATE 10 MG/ML 1 ML VIAL IV SCH ×2 (08:09→20:11)
[2020-05-24 08:48] LABS: ALT 63 U/L (4-34); AST 55 U/L (14-36); African American GFR (CKD) >90 (>60 ml/min/1.73 sqM); Albumin/Globulin Ratio 1.2; Alkaline Phosphatase 70 U/L (38-126); Anion Gap 4 mmol/L; Blood Urea Nitrogen 31 mg/dL (7-17); Calcium 8.4 mg/dL (8.4-10.2); Carbon Dioxide 34 mmol/L (22-30); Chloride 101 mmol/L (98-107); Globulin 2.5 g/dL; Glucose 126 mg/dL (74-99); Non-African American GFR(CKD) >90 (>60 ml/min/1.73 sqM); Potassium 4.6 mmol/L (3.5-5.1); Sodium 139 mmol/L (137-145); Total Bilirubin 0.7 mg/dL (0.2-1.3); Total Protein 5.5 g/dL (6.3-8.2)
--- NOTE | 2020-05-24 08:48 | XR ---
EXAMINATION TYPE: XR chest 1V portable DATE OF EXAM: 05/24/2020 CLINICAL HISTORY: Difficulty breathing and covid progress study. TECHNIQUE: Single AP portable upright view of the chest is obtained. COMPARISON: Chest x-ray from one day earlier and older studies. FINDINGS: There are persistent bilateral multifocal opacities. No pleural effusion or pneumothorax s een bilaterally . The cardiac silhouette size is stable and within normal limits. The osseous struc tures remain intact. IMPRESSION: Persistent Bilateral multifocal opacities consistent with covid-19 infection. No signific ant change from most recent x-ray.
[2020-05-24] MEDS: SYMBICORT 160-4.5 MCG INHALER INHALATION SCH ×2 (09:32→21:22)
--- NOTE | 2020-05-24 14:25 | P.PN ---
Subjective Progress Note Date: 05/24/20 Hypoxia, pneumonia, COVID-19 64-year-old female patient, asthmatic, chemistry burst department with symptoms of sore throat and body aches and fever or worsening shortness of breath and the symptoms started on 05/10/2020.. The patient also had some diarrhea muscle aches and chills along with shortness of breath. Her breathing got worse over the past 2 days. The patient came into the emergency department. The patient was found to be hypoxic with pulse ox of 80% and the patient was placed on 2 L of oxygen by nasal cannula. The white cell count was 6.8 and the patient had lymphopenia. D-dimer was at 0.77, renal function was normal with a creatinine of 0.56. The platelet count was low at 121 and the patient's lactic acid level was at 1.5. The chest x-ray showing diffuse bilateral airspace disease and multifocal pulmonary opacities. CT angiogram showed no evidence of any pulmonary embolism. Patchy and confluent bilateral pulmonary consolidation and groundglass changes seen. The patient was also found to have a small hiatal hernia. Patient checked positive for COVID 19 infection and the patient is currently on Decadron 6 mg IV every 24 hours, Lovenox 40 mg subcu every 24 hours. Over the past 10-12 hours, the patient and wean down from 6 L down to 3 L of oxygen by nasal cannula. On 05/21/2020 patient seen in follow-up on medical surgical floor, she is currently up to 18 L on high flow nasal cannula, her pulse ox is anywhere from 87-90, does not appear to be in any acute distress, however easily desaturates, lung sounds reveal diffuse coarse crackles bilaterally. Occasional cough, chest x-ray, today's labs have been reviewed, d-dimer 0.70, electrolytes and renal profile were fairly unremarkable, LDH has increased to 1339, and CRP is 74.5, p ro calcitonin level is negative at 0.07. No abdominal pain, no vomiting, no diarrhea. On the 05/22/2020 patient seen in follow-up on medical surgical floor, today is day 3 of Remdesivir, however her oxygenation has much worsened, and she is on nonrebreather in addition to high flow nasal cannula pulse ox is 92%, is easily desaturate, but appears to be in no acute distress, she is afebrile, hemod ynamically she stable, chest x-ray today shows worsening bilateral patchy infiltrates. She has been on Lovenox 40 mg daily, and Decadron 6 mg twice daily, On 05/23/2020, the patient is being seen for a follow-up. Note that this patient came in with hypoxic respiratory failure and had oxidation progressively got worse. She was on REM treatment and this was discontinued and the patient was switched to Tocilizumab because of her decline and worsening in her oxygenation patient was given a dose of 800 mg IV 1. On today's evaluation the patient is on 100% on a beta facemask in addition to 15 L per minute nasal cannula. She is able to maintain saturation above 90%. She is on Decadron 6 mg IV every 12 hours and she is also on Lovenox 40 mg subcu every 24 hours. No fever. No chills. No chest pain. No worsening shortness of breath. No other issues for now. We are still monitoring the oxidation very closely as the patient has a borderline pulmonary status and she is still easily desaturating with mobility and activity and cough and a movement and talking. The white cell count is at 11. D-dimer is at 1.38. The LDH level is 1343, CRP is 37.2 and the rest of the blood work and electrodes are all within normal limits. 05/24/2020, the patient remains clinically stable. No interval worsening or improvement since yesterday. She remains on nonrebreather facemask addition to 15 L nasal cannula. The patient is resting comfortably in bed. Her breathing is nonlabored. She is not using accessory muscles of breathing. I d-dimer is at 2.25. Her rest of the inflammatory markers from yesterday showed a stable LDH of 1343. Her CRP is at 37.2. Electrolytes are all within normal limits. The patient is still on Decadron 6 mg IV every 12 hours. The patient is also on Lovenox 40 mg subcu every 24 hours. No chest pain. No altered mentation. No cough. No sputum production. She is using incentive spirometer and she coughs only when she tries to the plain inhaler or expand her lungs. No hemoptysis. No pleurisy. No altered mentation. Tolerating her diet. Objective - Vital Signs Vital signs: Vital Signs Temp 97.7 F 05/24/20 10:00 Pulse 68 05/24/20 10:00 Resp 20 05/24/20 10:00 BP 131/83 05/24/20 10:00 Pulse Ox 91 L 05/24/20 10:00 Intake & Output 05/23/20 05/24/20 05/24/20 18:59 06:59 18:59 Intake Total 150 600 Output Total 1 Balance 149 600 Intake: Oral 150 600 Output: Stool 1 Other: Voiding Method Bedside Commode Bedside Commode # Voids 3 1 1 - Exam GENERAL EXAM: Alert, very pleasant, 64-year-old white female on 15 L of high flow oxygen in addition to 100% nonrebreather mask with a pulse ox of 87-90% comfortable in no apparent distress. HEAD: Normocephalic/atraumatic. EYES: Normal reaction of pupils, equal size. Conjunctiva pink, sclera white. NOSE: Clear with pink turbinates. THROAT: No erythema or exudates. NECK: No masses, no JVD, no thyroid enlargement, no adenopathy. CHEST: No chest wall deformity. Symmetrical expansion. LUNGS: Equal air entry with diffuse crackles CVS: Regular rate and rhythm, normal S1 and S2, no gallops, no murmurs, no rubs ABDOMEN: Soft, nontender. No hepatosplenomegaly, normal bowel sounds, no guarding or rigidity. EXTREMITIES: No clubbing, no edema, no cyanosis, 2+ pulses and upper and lower extremities. MUSCULOSKELETAL: Muscle strength and tone normal. SPINE: No scoliosis or deformity SKIN: No rashes CENTRAL NERVOUS SYSTEM: Alert and oriented -3. No focal deficits, tone is normal in all 4 extremities. PSYCHIATRIC: Alert and oriented -3. Appropriate affect. Intact judgment and insight. - Labs CBC & Chem 7: 05/23/20 07:13 05/24/20 07:49 Labs: Abnormal Lab Results - Last 24 Hours (Table) 05/23/20 05/24/20 05/24/20 Range/Units 07:13 07:49 07:49 D-Dimer 2.25 H (<0.60) mg/L FEU Carbon Dioxide 34 H (22-30) mmol/L BUN 31 H (7-17) mg/dL Glucose 126 H (74-99) mg/dL Ferritin 397.4 H (10.0-291.0) ng/mL AST 55 H (14-36) U/L ALT 63 H (4-34) U/L Total Protein 5.5 L (6.3-8.2) g/dL Albumin 3.0 L (3.5-5.0) g/dL Assessment and Plan Plan: 1 acute COVID 19 related pneumonia, symptoms started on 05/10/2020 and the patient presented emergency on 05/19/2020 with pneumonia by the pulmonary infiltrates confirmed and a chest x-ray to see angiogram. D-dimer is not elevated. CT abdomen showing no evidence of any pulmonary embolism. Bilateral groundglass pulmonary infiltrates and consolidations. Started Remdesivir on 05/20/2020, and that Remdesivir was discontinued because of worsening and oxygenation and the patient was given Tocilizumab and the patient received a dose of 800 mg IV. Meanwhile, the oxygen ation remains stable on 100% on a beta facemask and the patient is also on 15 L of oxygen by nasal cannula. The patient is calm and comfortable yet she is quite borderline in terms of her oxygenation acute easily desaturate with mobility and movement and talking. I would say, her overall condition is essentially stable and unchanged compared to yesterday. She is still working on his incentive spirometer. She remains on Decadron and anticoagulation with Lovenox. The chest x-ray from today showing stable bilateral pulmonary infiltrates. Unchanged chest x-ray compared to yesterday chest x-ray on 05/23/2020. 2 acute hypoxic respiratory failure 3 obesity with a BMI of 45.4 4 history of bronchial asthma maintained on inhalers such as Advair outpatient basis 5 MTZ 6 hypertension Plan Continue same oxygen flow with 100% on a beta facemask and 15 L high flow Continue steroids Continue anticoagulation Chest x-rays have been essentially stable diffuse bilateral pulmonary infiltrat es Clinically stable compared to yesterday and there is no interval worsening and oxygenation we'll continue to follow make further recommendations based on her progress. Her condition is still marginal and oxygen requirements remain quite elevated and the patient's chest x-ray is not showing any major improvement. As such the patient remainsat a high risk for developing further decompensation requiring intubation mechanical ventilation and this will be monitored very closely.
--- NOTE | 2020-05-24 18:49 | P.PN ---
Subjective Progress Note Date: 05/24/20 HISTORY OF PRESENT ILLNESS This is a pleasant 64-year-old female, patient of Dr. Rohit Jackson she has underlying asthma, not requiring any maintenance oral steroids or oxygen, mild intermittent in nature, on Proventil, she has a prior smoking history, quit at age 27, She comes into the emergency room with sore throat, body aches fever, and worsening shortness of breath, symptoms started 4/3 days had productive cough with diarrhea, muscle aches, chills, shortness of breath, for which it has progressed till 2 days prior admission, requiring now on ER visit. She also has chest pressure, no hemoptysis, patient denies any daily or DVT in the past. In the emergency room, she was noted to the hypoxemic with O2 sats at 88% on room air, requiring 2 L nasal cannula, she has CTA of the chest, showing borderline suboptimal opacification of pulmonary arterial system, no large ce ntral pulmonary emboli is identified, there are many lobar segmental and more distal arterial branches are nondiagnostic in embolizing, patchy bilateral infiltrates of groundglass consolidation, no pleural effusion, small hiatal hernia, indeterminate 1.5 cm nodularity left adrenal gland. Imaging consistent with confluent covered pneumonia, fatty liver, six-month follow-up for adrenal mass protocol was recommended. Left adrenal 1.5 cm adrenal nodule that shows 6.8 WBC, neutrophils normal, lymphocytes low at 0.6, d-dimer slightly elevated 0.77, creatinine 0.56, glucose 113, lactic acid normal 1.5, AST 70 elevated no sed rate no CRP no pro-calcitonin no ferritin no LDH obtained no EKG for review, consult was made with Dr. Garg, infectious disease 05/20: Patient states her breathing is a little bit better today and she slept well last night and thinks this has significantly impact her overall condition. She denies having any leg pain. She is currently on O2 at 3 L with pulse ox of 90%. Patient is been afebrile, heart rate 72, blood pressure 128/71. Repeat CBC reveals platelet count of 132, lymphocytes 0.87. Jazmine Tsai added. Patient is on day #2/5 of Remdesivir. 05/21: Patient is on day #3/5 of Remdesivir. Ann[place]an did not help with her insomnia last night and patient is requesting Benadryl which will be added. She states she is eating well. She is currently pulse oxing 87% on 13 L and was increased to 15 L nasal cannula with pulse ox of 90%. She has been afebrile, heart rate 75, blood pressure 160/67. 05/22: Patient's pulse ox is 90% on high flow nasal cannula 15 L with nonrebreather mask as well. Patient is been afebrile, heart rate 74, blood pressure 129/60. Repeat chest x-ray reveals worsening bilateral patchy infiltrates. Patient states that she slept better last night and received Benadryl. She continues to have cough. She states she is eating well. No choking episodes. Patient has received 3 doses of Remdesivir. Today, pulmonary medicine has ordered Tocilizumab. Patient is also continued on Symbicort, dexamethasone, Lovenox, vitamins. 05/23: Patient continues to have shortness of breath with his more comfortable today. She did have a bowel movement last night after prune juice. She continues to have some lower extremity edema despite receiving Lasix yesterday. Repeat dose of IV Lasix 40 mg 1 today. Patient has been afebrile, heart rate 66, respiratory rate 25, blood pressure 124/77, pulse ox 90% on 15 L high flow nasal cannula and nonrebreather. Repeat blood work reveals WBC 1.2 otherwise CBC is normal. D-dimer 1.38. BUN 33 and creatinine 0.71. AST 61, ALT 62, LDH 1343. C-reactive protein 37.2 which is improved from last draw. Repeat chest x-ray reveals diffuse bilateral airspace disease left greater than right un changed. Slight worsening within the lingula. 05/24 patient examined bedside known to worsening since yesterday remains on 15 L nasal cannula. He is comfortable in bed denies any cough or chest pain. Continue Decadron 6 mg IV every 12 with Lovenox 40 every 24 hours. Continue to use incentive spirometer. Pulmicort twice daily. REVIEW OF SYSTEMS Constitutional: No fever, no chills, no night sweats. No weight change. Reports weakness, Reports fatigue. No daytime sleepiness. EENT: No headache. No blurred vision or double vision, no loss of vision. No dizziness. No nasal drainage or congestion. No epistaxis. No sore throat. Lungs: Reports shortness of breath continued, Reports cough, no sputum production. No wheezing. Cardiovascular: No chest pain, no lower extremity edema. No palpitations. No paroxysmal nocturnal dyspnea. No orthopnea. No lightheadedness or dizziness. No syncopal episodes. Abdominal: No abdominal pain. No nausea, vomiting. No diarrhea. No constipation. No bloody or tarry stools. No loss of appetite. Genitourinary: No dysuria, increased frequency, urgency. No urinary retention. Musculoskeletal: No myalgias. No muscle weakness, no gait dysfunction, no frequent falls. No back pain. No neck pain. Integumentary: No wounds, no lesions. No rash or pruritus. No unusual bruising. No change in hair or nails. Neurologic: No aphasia. No facial droop. No change in mentation. No head injury. No headache. No paralysis. No paresthesia. Psychiatric: No depression. No anxiety. Reports insomnia is improved. Endocrine: No abnormal blood sugars. No weight change. Objective - Vital Signs Vital signs: Vital Signs Temp 98.0 F 05/24/20 18:00 Pulse 65 05/24/20 18:00 Resp 18 05/24/20 18:00 BP 116/66 05/24/20 18:00 Pulse Ox 95 05/24/20 18:00 Intake & Output 05/23/20 05/24/20 05/24/20 18:59 06:59 18:59 Intake Total 150 1000 Output Total 1 Balance 149 1000 Intake: Oral 150 1000 Output: Stool 1 Other: Voiding Method Bedside Commode Bedside Commode # Voids 3 1 1 - Exam PHYSICAL EXAMINATION Gen: This is a 64-year-old morbidly obese female. Patient is resting in recliner and appears to be comfortable at rest. HEENT: Head is atraumatic, normocephalic. Pupils equal, round. Sclerae is anicteric. NECK: Supple. No JVD. No lymphadenopathy. No thyromegaly. LUNGS: Diminished bilaterally. No wheezes or rhonchi. No intercostal retractions. HEART: Regular rate and rhythm. No murmur. ABDOMEN: Soft. Bowel sounds are present. No masses. No tenderness. EXTREMITIES: No pedal edema. No calf tenderness. NEUROLOGICAL: Patient is awake, alert and oriented x3. Cranial nerves 2 through 12 are grossly intact. - Labs CBC & Chem 7: 04/16/21 07:13 05/24/20 07:49 Labs: Abnormal Lab Results - Last 24 Hours (Table) 05/23/20 05/24/20 05/24/20 Range/Units 07:13 07:49 07:49 D-Dimer 2.25 H (<0.60) mg/L FEU Carbon Dioxide 34 H (22-30) mmol/L BUN 31 H (7-17) mg/dL Glucose 126 H (74-99) mg/dL Ferritin 397.4 H (10.0-291.0) ng/mL AST 55 H (14-36) U/L ALT 63 H (4-34) U/L Total Protein 5.5 L (6.3-8.2) g/dL Albumin 3.0 L (3.5-5.0) g/dL Assessment and Plan Plan: ASSESSMENT AND PLAN 1. Acute hypoxic respiratory failure secondary to Covid 19 pneumonia. Symptoms starting May 10 patient is status post 3 doses of Remdesivir, she is scheduled for one dose of Tocilizumab 05/22, continue dexamethasone 6 mg IV twice daily, with vitamin C, vitamin D, and zinc, Lovenox 40 mg subcu daily, pulmonary consult appreciated. Continue oxygen therapy, currently on 15 L high flow nasal cannula and nonrebreather. 2. History of mild intermittent asthma with exacerbation, on when necessary albuterol, now that she is sick she was requiring Advair at home, consult Dr Olivia 3. Adrenal mass 1.5 cm indeterminate, recommended repeat CAT scan in 6 months, due November 2020 outpatient 4. Covid pneumonia with hypoxia. Consults with pulmonary medicine and infectious disease appreciated. 5. Johnson, with elevated AST, diet management 6. Hypertension, lisinopril 20 mg daily 7. DVT prophylaxis Lovenox 40 mg daily 8. Insomnia, start melatonin 6 mg at bedtime 9. BMI of 45, A1c is 5.4.
--- NOTE | 2020-05-24 18:49 | PN ---
PROGRESS NOTE DATE OF SERVICE: 05/24/2020 REASON FOR FOLLOWUP: COVID-19 pneumonia. INTERVAL HISTORY: Patient is afebrile. The patient is breathing comfortably. Still requiring high-flow nasal cannula oxygen. Patient denies any chest pain or any worsening cough. No vomiting. No abdominal pain or diarrhea. PHYSICAL EXAMINATION: Blood pressure 125/72, pulse of 68, temperature 98. She is 94% on 15 L high-flow oxygen. General description is a middle-aged female up in the bed in no distress. Respiratory system: Unlabored breathing, decreased intensity of breath sounds. No wheeze. HEART: S1, S2. Regular rate and rhythm. Abdomen soft, no tenderness. LABS: D-dimer is 2.25, creatinine 0.67. Liver enzymes have improved. DIAGNOSTIC IMPRESSION AND PLAN: Patient with acute COVID-19 infection. The patient seems to have shown overall clinical improvement. The patient did have a chest x-ray this morning. No significant change. Patient to continue with dexamethasone, Lovenox, zinc and ascorbic acid and monitor clinical course closely. MMODL / IJN: [id number] /
[2020-05-24] MEDS: MELATONIN 3 MG TABLET PO SCH (20:12)
[2020-05-25] MEDS: SYMBICORT 160-4.5 MCG INHALER INHALATION SCH ×2 (08:25→20:27)
[2020-05-25] MEDS: amLODIPine 10 MG TAB PO SCH (08:26)
[2020-05-25] MEDS: CHOLECALCIFEROL 25 MCG (1000 IU) TABLET PO SCH (08:26)
[2020-05-25] MEDS: MULTIVITAMINS, THERA 1 EACH TAB PO SCH (08:26)
[2020-05-25] MEDS: OXYBUTYNIN 10 MG TAB.ER.24 PO SCH (08:26)
[2020-05-25] MEDS: ENOXAPARIN 40 MG/0.4 ML SYRINGE SQ SCH (08:26)
[2020-05-25] MEDS: MAGNESIUM OXIDE 400 MG TAB PO SCH (08:26)
[2020-05-25] MEDS: DEXAMETHASONE SOD PHOSPHATE 10 MG/ML 1 ML VIAL IV SCH ×2 (08:26→20:41)
[2020-05-25] MEDS: lisinopriL 20 MG TAB PO SCH (08:26)
[2020-05-25] MEDS: ASCORBIC ACID 500 MG TAB PO SCH (08:26)
[2020-05-25] MEDS: SENNOSIDES-DOCUSATE SODIUM 1 EACH TAB PO SCH (08:27)
--- NOTE | 2020-05-25 13:25 | P.PN ---
Subjective Progress Note Date: 05/25/20 Hypoxia, pneumonia, COVID-19 64-year-old female patient, asthmatic, chemistry burst department with symptoms of sore throat and body aches and fever or worsening shortness of breath and the symptoms started on 05/10/2020.. The patient also had some diarrhea muscle aches and chills along with shortness of breath. Her breathing got worse over the past 2 days. The patient came into the emergency department. The patient was found to be hypoxic with pulse ox of 80% and the patient was placed on 2 L of oxygen by nasal cannula. The white cell count was 6.8 and the patient had lymphopenia. D-dimer was at 0.77, renal function was normal with a creatinine of 0.56. The platelet count was low at 121 and the patient's lactic acid level was at 1.5. The chest x-ray showing diffuse bilateral airspace disease and multifocal pulmonary opacities. CT angiogram showed no evidence of any pulmonary embolism. Patchy and confluent bilateral pulmonary consolidation and groundglass changes seen. The patient was also found to have a small hiatal hernia. Patient checked positive for COVID 19 infection and the patient is currently on Decadron 6 mg IV every 24 hours, Lovenox 40 mg subcu every 24 hours. Over the past 10-12 hours, the patient and wean down from 6 L down to 3 L of oxygen by nasal cannula. On 05/21/2020 patient seen in follow-up on medical surgical floor, she is currently up to 18 L on high flow nasal cannula, her pulse ox is anywhere from 87-90, does not appear to be in any acute distress, however easily desaturates, lung sounds reveal diffuse coarse crackles bilaterally. Occasional cough, chest x-ray, today's labs have been reviewed, d-dimer 0.70, electrolytes and renal profile were fairly unremarkable, LDH has increased to 1339, and CRP is 74.5, p ro calcitonin level is negative at 0.07. No abdominal pain, no vomiting, no diarrhea. On the 05/22/2020 patient seen in follow-up on medical surgical floor, today is day 3 of Remdesivir, however her oxygenation has much worsened, and she is on nonrebreather in addition to high flow nasal cannula pulse ox is 92%, is easily desaturate, but appears to be in no acute distress, she is afebrile, hemod ynamically she stable, chest x-ray today shows worsening bilateral patchy infiltrates. She has been on Lovenox 40 mg daily, and Decadron 6 mg twice daily, On 05/23/2020, the patient is being seen for a follow-up. Note that this patient came in with hypoxic respiratory failure and had oxidation progressively got worse. She was on REM treatment and this was discontinued and the patient was switched to Tocilizumab because of her decline and worsening in her oxygenation patient was given a dose of 800 mg IV 1. On today's evaluation the patient is on 100% on a beta facemask in addition to 15 L per minute nasal cannula. She is able to maintain saturation above 90%. She is on Decadron 6 mg IV every 12 hours and she is also on Lovenox 40 mg subcu every 24 hours. No fever. No chills. No chest pain. No worsening shortness of breath. No other issues for now. We are still monitoring the oxidation very closely as the patient has a borderline pulmonary status and she is still easily desaturating with mobility and activity and cough and a movement and talking. The white cell count is at 11. D-dimer is at 1.38. The LDH level is 1343, CRP is 37.2 and the rest of the blood work and electrodes are all within normal limits. 05/24/2020, the patient remains clinically stable. No interval worsening or improvement since yesterday. She remains on nonrebreather facemask addition to 15 L nasal cannula. The patient is resting comfortably in bed. Her breathing is nonlabored. She is not using accessory muscles of breathing. I d-dimer is at 2.25. Her rest of the inflammatory markers from yesterday showed a stable LDH of 1343. Her CRP is at 37.2. Electrolytes are all within normal limits. The patient is still on Decadron 6 mg IV every 12 hours. The patient is also on Lovenox 40 mg subcu every 24 hours. No chest pain. No altered mentation. No cough. No sputum production. She is using incentive spirometer and she coughs only when she tries to the plain inhaler or expand her lungs. No hemoptysis. No pleurisy. No altered mentation. Tolerating her diet. 05/25/2020, I'm going to give the patient had child off the nonrebreather facemask and keep her on 15 L and monitor oxygenation. She is resting comfortably in bed. Her breathing is not labored. She is tolerating her diet. No nausea. No vomiting. No diarrhea. Abdominal pain. No chest pain. Remains on Decadron 6 mg IV every 12 hours and she is also on Lovenox 40 mg subcu to 24 hours.Her blood work today shows normal electrolytes, BUN 31 with a creatinine of 0.6, AST is 55, ALT 63, the LDH from yesterday was 1343 and the CRP level was at 37. Occasional dry cough. Using incentive spirometer. No other significant events otherwise for now. Night was uneventful. Objective - Vital Signs Vital signs: Vital Signs Temp 97.5 F L 05/25/20 10:00 Pulse 55 L 05/25/20 10:00 Resp 18 05/25/20 10:00 BP 108/65 05/25/20 10:00 Pulse Ox 91 L 05/25/20 05:33 Intake & Output 05/24/20 05/25/20 05/25/20 18:59 06:59 18:59 Intake Total 1000 400 Balance 1000 400 Intake: Oral 1000 400 Other: # Voids 1 2 2 - Exam GENERAL EXAM: Alert, very pleasant, 64-year-old white female on 15 L of high flow oxygen EYES: Normal reaction of pupils, equal size. Conjunctiva pink, sclera white. NOSE: Clear with pink turbinates. THROAT: No erythema or exudates. NECK: No masses, no JVD, no thyroid enlargement, no adenopathy. CHEST: No chest wall deformity. Symmetrical expansion. LUNGS: Equal air entry with diffuse crackles CVS: Regular rate and rhythm, normal S1 and S2, no gallops, no murmurs, no rubs ABDOMEN: Soft, nontender. No hepatosplenomegaly, normal bowel sounds, no guarding or rigidity. EXTREMITIES: No clubbing, no edema, no cyanosis, 2+ pulses and upper and lower extremities. MUSCULOSKELETAL: Muscle strength and tone normal. SPINE: No scoliosis or deformity SKIN: No rashes CENTRAL NERVOUS SYSTEM: Alert and oriented -3. No focal deficits, tone is normal in all 4 extremities. PSYCHIATRIC: Alert and oriented -3. Appropriate affect. Intact judgment and insight. - Labs CBC & Chem 7: 05/23/20 07:13 05/24/20 07:49 Assessment and Plan Plan: 1 acute COVID 19 related pneumonia, symptoms started on 05/10/2020 and the patient presented emergency on 05/19/2020 with pneumonia by the pulmonary infiltrates confirmed and a chest x-ray to see angiogram. D-dimer is not elevated. CT abdomen showing no evidence of any pulmonary embolism. Bilateral groundglass pulmonary infiltrates and consolidations. Started Remdesivir on 05/20/2020, and that Remdesivir was discontinued because of worsening and oxygenation and the patient was given Tocilizumab and the patient received a dose of 800 mg IV. X-ray from yesterday was unchanged. Nevertheless, today's evaluation, she is able to come off the nonrebreather facemask and while on 15 L she is able to maintain a saturation of about 90%. I would say she is somewhat clinically improved. 2 acute hypoxic respiratory failure 3 obesity with a BMI of 45.4 4 history of bronchial asthma maintained on inhalers such as Advair outpatient basis 5 MTZ 6 hypertension Plan oxygen 15 L high flowThe nonrebreather if needed. Monitor oxygenation. Continue steroids Continue anticoagulation Chest x-rays have been essentially stable diffuse bilateral pulmonary infiltrates, Last x-ray was from yesterday on 05/24/2020 Clinically stable compared to yesterday and there is no interval worsening and oxygenation we'll continue to follow make further recommendations based on her progress.
--- NOTE | 2020-05-25 16:48 | P.PN ---
Subjective Progress Note Date: 05/25/20 HISTORY OF PRESENT ILLNESS This is a pleasant 64-year-old female, patient of Dr. Rohit Jackson she has underlying asthma, not requiring any maintenance oral steroids or oxygen, mild intermittent in nature, on Proventil, she has a prior smoking history, quit at age 27, She comes into the emergency room with sore throat, body aches fever, and worsening shortness of breath, symptoms started 4/3 days had productive cough with diarrhea, muscle aches, chills, shortness of breath, for which it has progressed till 2 days prior admission, requiring now on ER visit. She also has chest pressure, no hemoptysis, patient denies any daily or DVT in the past. In the emergency room, she was noted to the hypoxemic with O2 sats at 88% on room air, requiring 2 L nasal cannula, she has CTA of the chest, showing borderline suboptimal opacification of pulmonary arterial system, no large ce ntral pulmonary emboli is identified, there are many lobar segmental and more distal arterial branches are nondiagnostic in embolizing, patchy bilateral infiltrates of groundglass consolidation, no pleural effusion, small hiatal hernia, indeterminate 1.5 cm nodularity left adrenal gland. Imaging consistent with confluent covered pneumonia, fatty liver, six-month follow-up for adrenal mass protocol was recommended. Left adrenal 1.5 cm adrenal nodule that shows 6.8 WBC, neutrophils normal, lymphocytes low at 0.6, d-dimer slightly elevated 0.77, creatinine 0.56, glucose 113, lactic acid normal 1.5, AST 70 elevated no sed rate no CRP no pro-calcitonin no ferritin no LDH obtained no EKG for review, consult was made with Dr. Garg, infectious disease 05/20: Patient states her breathing is a little bit better today and she slept well last night and thinks this has significantly impact her overall condition. She denies having any leg pain. She is currently on O2 at 3 L with pulse ox of 90%. Patient is been afebrile, heart rate 72, blood pressure 128/71. Repeat CBC reveals platelet count of 132, lymphocytes 0.87. Jazmine Tsai added. Patient is on day #2/5 of Remdesivir. 05/21: Patient is on day #3/5 of Remdesivir. Twisp did not help with her insomnia last night and patient is requesting Benadryl which will be added. She states she is eating well. She is currently pulse oxing 87% on 13 L and was increased to 15 L nasal cannula with pulse ox of 90%. She has been afebrile, heart rate 75, blood pressure 160/67. 05/22: Patient's pulse ox is 90% on high flow nasal cannula 15 L with nonrebreather mask as well. Patient is been afebrile, heart rate 74, blood pressure 129/60. Repeat chest x-ray reveals worsening bilateral patchy infiltrates. Patient states that she slept better last night and received Benadryl. She continues to have cough. She states she is eating well. No choking episodes. Patient has received 3 doses of Remdesivir. Today, pulmonary medicine has ordered Tocilizumab. Patient is also continued on Symbicort, dexamethasone, Lovenox, vitamins. 05/23: Patient continues to have shortness of breath with his more comfortable today. She did have a bowel movement last night after prune juice. She continues to have some lower extremity edema despite receiving Lasix yesterday. Repeat dose of IV Lasix 40 mg 1 today. Patient has been afebrile, heart rate 66, respiratory rate 25, blood pressure 124/77, pulse ox 90% on 15 L high flow nasal cannula and nonrebreather. Repeat blood work reveals WBC 1.2 otherwise CBC is normal. D-dimer 1.38. BUN 33 and creatinine 0.71. AST 61, ALT 62, LDH 1343. C-reactive protein 37.2 which is improved from last draw. Repeat chest x-ray reveals diffuse bilateral airspace disease left greater than right un changed. Slight worsening within the lingula. 05/24 patient examined bedside known to worsening since yesterday remains on 15 L nasal cannula. He is comfortable in bed denies any cough or chest pain. Continue Decadron 6 mg IV every 12 with Lovenox 40 every 24 hours. Continue to use incentive spirometer. Pulmicort twice daily. 05/25 patient examined at bedside. Denies any shortness of breath or chest pain. She is maintaining [id number]% on 15 L of high flow nonrebreather. Patient is comfortable denies any cough or worsening shortness of breath on exertion. Denies any lower extremity edema or skin changes. Continues to get pro-air and Pulmicort as needed for shortness of breath. Continue Decadron 6 mg IV every 12 and Lovenox 40 every 24 hours. Repeat labs ordered for tomorrow morning REVIEW OF SYSTEMS Constitutional: No fever, no chills, no night sweats. No weight change. Reports weakness, Reports fatigue. No daytime sleepiness. EENT: No headache. No blurred vision or double vision, no loss of vision. No dizziness. No nasal drainage or congestion. No epistaxis. No sore throat. Lungs: Reports shortness of breath continued, Reports cough, no sputum production. No wheezing. Cardiovascular: No chest pain, no lower extremity edema. No palpitations. No paroxysmal nocturnal dyspnea. No orthopnea. No lightheadedness or dizziness. No syncopal episodes. Abdominal: No abdominal pain. No nausea, vomiting. No diarrhea. No constipation. No bloody or tarry stools. No loss of appetite. Genitourinary: No dysuria, increased frequency, urgency. No urinary retention. Musculoskeletal: No myalgias. No muscle weakness, no gait dysfunction, no frequent falls. No back pain. No neck pain. Integumentary: No wounds, no lesions. No rash or pruritus. No unusual bruising. No change in hair or nails. Neurologic: No aphasia. No facial droop. No change in mentation. No head injury. No headache. No paralysis. No paresthesia. Psychiatric: No depression. No anxiety. Reports insomnia is improved. Endocrine: No abnormal blood sugars. No weight change. Objective - Vital Signs Vital signs: Vital Signs Temp 97.6 F 05/25/20 14:00 Pulse 60 05/25/20 14:00 Resp 18 05/25/20 14:00 BP 111/67 05/25/20 14:00 Pulse Ox 90 L 05/25/20 14:00 Intake & Output 05/24/20 05/25/20 05/25/20 18:59 06:59 18:59 Intake Total 1000 800 Balance 1000 800 Intake: Oral 1000 800 Other: # Voids 1 2 1 # Bowel Movements 1 - Exam PHYSICAL EXAMINATION Gen: This is a 64-year-old morbidly obese female. Patient is resting in recliner and appears to be comfortable at rest. HEENT: Head is atraumatic, normocephalic. Pupils equal, round. Sclerae is anicteric. NECK: Supple. No JVD. No lymphadenopathy. No thyromegaly. LUNGS: Diminished bilaterally. No wheezes or rhonchi. No intercostal retractions. HEART: Regular rate and rhythm. No murmur. ABDOMEN: Soft. Bowel sounds are present. No masses. No tenderness. EXTREMITIES: No pedal edema. No calf tenderness. NEUROLOGICAL: Patient is awake, alert and oriented x3. Cranial nerves 2 through 12 are grossly intact. - Labs CBC & Chem 7: 05/23/20 07:13 05/24/20 07:49 Assessment and Plan Plan: ASSESSMENT AND PLAN 1. Acute hypoxic respiratory failure secondary to Covid 19 pneumonia. Symptoms starting May 10 patient is status post 3 doses of Remdesivir, she is scheduled for one dose of Tocilizumab 05/22, continue dexamethasone 6 mg IV twice daily, with vitamin C, vitamin D, and zinc, Lovenox 40 mg subcu daily, pulmonary consult appreciated. Continue oxygen therapy, currently on 15 L high flow nasal cannula and nonrebreather. 2. History of mild intermittent asthma with exacerbation, on when necessary albuterol, now that she is sick she was requiring Advair at home, consult Dr Olivia 3. Adrenal mass 1.5 cm indeterminate, recommended repeat CAT scan in 6 months, due November 2020 outpatient 4. Covid pneumonia with hypoxia. Consults with pulmonary medicine and infectious disease appreciated. 5. Johnson, with elevated AST, diet management 6. Hypertension, lisinopril 20 mg daily 7. DVT prophylaxis Lovenox 40 mg daily 8. Insomnia, start melatonin 6 mg at bedtime 9. BMI of 45, A1c is 5.4.
--- NOTE | 2020-05-25 18:21 | PN ---
PROGRESS NOTE DATE OF SERVICE: 05/25/2020 REASON FOR FOLLOWUP: Covid 19 pneumonia. The patient is currently afebrile. The patient is feeling slightly better. Breathing more comfortably. Currently on nasal cannula oxygen. Denies any chest pain or any worsening cough. No abdominal pain. No diarrhea. PHYSICAL EXAMINATION: Blood pressure 108/65, pulse of 55, temperature 96.5, 91% on 15 L high-flow oxygen. General description is a middle-aged female up in the bed in no distress. Respiratory system: Unlabored breathing. Few crackles bilaterally. Heart S1, S2. Regular rate and rhythm. Abdomen soft, no tenderness. LABS: No new labs have been obtained today. DIAGNOSTIC IMPRESSION AND PLAN: Patient with acute COVID-19 infection in this patient who seemed to have shown some clinical improvement. Patient to continue with Dexamethasone, Norvasc, zinc and ascorbic acid and monitor clinical course closely. MMODL / IJN: [id number] /
[2020-05-25] MEDS: MELATONIN 3 MG TABLET PO SCH (20:41)
[2020-05-26] MEDS: SYMBICORT 160-4.5 MCG INHALER INHALATION SCH ×2 (07:33→21:19)
[2020-05-26] MEDS: MULTIVITAMINS, THERA 1 EACH TAB PO SCH (08:14)
[2020-05-26] MEDS: OXYBUTYNIN 10 MG TAB.ER.24 PO SCH (08:14)
[2020-05-26] MEDS: amLODIPine 10 MG TAB PO SCH (08:14)
[2020-05-26] MEDS: DEXAMETHASONE SOD PHOSPHATE 10 MG/ML 1 ML VIAL IV SCH ×2 (08:15→20:07)
[2020-05-26] MEDS: SENNOSIDES-DOCUSATE SODIUM 1 EACH TAB PO SCH (08:15)
[2020-05-26] MEDS: CHOLECALCIFEROL 25 MCG (1000 IU) TABLET PO SCH (08:15)
[2020-05-26] MEDS: ASCORBIC ACID 500 MG TAB PO SCH (08:15)
[2020-05-26] MEDS: MAGNESIUM OXIDE 400 MG TAB PO SCH (08:15)
[2020-05-26] MEDS: lisinopriL 20 MG TAB PO SCH (08:15)
[2020-05-26] MEDS: ENOXAPARIN 40 MG/0.4 ML SYRINGE SQ SCH (08:15)
[2020-05-26] MEDS: guaiFENesin 600 MG TABLET.ER PO SCH ×2 (10:05→20:07)
[2020-05-26 10:50] LABS: African American GFR (CKD) 120.2 (60.0-200.0); Albumin 3.4 g/dL (3.80-4.90); Albumin/Globulin Ratio 1.79 (1.60-3.17); Anion Gap 5.5 mmol/L (4.00-12.00); C Reactive Protein 0.4 mg/dL (0.0-0.8); Calcium 8.7 mg/dL (8.7-10.3); Carbon Dioxide 29.5 mmol/L (21.6-31.8); Ferritin 482.3 ng/mL (10.0-291.0); Globulin 1.9 g/dL (1.6-3.3); Non-African American GFR(CKD) 103.7 (60.0-200.0); Potassium 5.1 mmol/L (3.5-5.5); Total Bilirubin 0.8 mg/dL (0.3-1.2); Total Protein 5.3 g/dL (6.2-8.2)
--- NOTE | 2020-05-26 11:25 | P.PN ---
Subjective Progress Note Date: 05/26/20 HISTORY OF PRESENT ILLNESS This is a pleasant 64-year-old female, patient of Dr. Rohit Jackson she has underlying asthma, not requiring any maintenance oral steroids or oxygen, mild intermittent in nature, on Proventil, she has a prior smoking history, quit at age 27, She comes into the emergency room with sore throat, body aches fever, and worsening shortness of breath, symptoms started 4/3 days had productive cough with diarrhea, muscle aches, chills, shortness of breath, for which it has progressed till 2 days prior admission, requiring now on ER visit. She also has chest pressure, no hemoptysis, patient denies any daily or DVT in the past. In the emergency room, she was noted to the hypoxemic with O2 sats at 88% on room air, requiring 2 L nasal cannula, she has CTA of the chest, showing borderline suboptimal opacification of pulmonary arterial system, no large ce ntral pulmonary emboli is identified, there are many lobar segmental and more distal arterial branches are nondiagnostic in embolizing, patchy bilateral infiltrates of groundglass consolidation, no pleural effusion, small hiatal hernia, indeterminate 1.5 cm nodularity left adrenal gland. Imaging consistent with confluent covered pneumonia, fatty liver, six-month follow-up for adrenal mass protocol was recommended. Left adrenal 1.5 cm adrenal nodule that shows 6.8 WBC, neutrophils normal, lymphocytes low at 0.6, d-dimer slightly elevated 0.77, creatinine 0.56, glucose 113, lactic acid normal 1.5, AST 70 elevated no sed rate no CRP no pro-calcitonin no ferritin no LDH obtained no EKG for review, consult was made with Dr. Garg, infectious disease 05/20: Patient states her breathing is a little bit better today and she slept well last night and thinks this has significantly impact her overall condition. She denies having any leg pain. She is currently on O2 at 3 L with pulse ox of 90%. Patient is been afebrile, heart rate 72, blood pressure 128/71. Repeat CBC reveals platelet count of 132, lymphocytes 0.87. Jazmine Tsai added. Patient is on day #2/5 of Remdesivir. 05/21: Patient is on day #3/5 of Remdesivir. Hardin did not help with her insomnia last night and patient is requesting Benadryl which will be added. She states she is eating well. She is currently pulse oxing 87% on 13 L and was increased to 15 L nasal cannula with pulse ox of 90%. She has been afebrile, heart rate 75, blood pressure 160/67. 05/22: Patient's pulse ox is 90% on high flow nasal cannula 15 L with nonrebreather mask as well. Patient is been afebrile, heart rate 74, blood pressure 129/60. Repeat chest x-ray reveals worsening bilateral patchy infiltrates. Patient states that she slept better last night and received Benadryl. She continues to have cough. She states she is eating well. No choking episodes. Patient has received 3 doses of Remdesivir. Today, pulmonary medicine has ordered Tocilizumab. Patient is also continued on Symbicort, dexamethasone, Lovenox, vitamins. 05/23: Patient continues to have shortness of breath with his more comfortable today. She did have a bowel movement last night after prune juice. She continues to have some lower extremity edema despite receiving Lasix yesterday. Repeat dose of IV Lasix 40 mg 1 today. Patient has been afebrile, heart rate 66, respiratory rate 25, blood pressure 124/77, pulse ox 90% on 15 L high flow nasal cannula and nonrebreather. Repeat blood work reveals WBC 1.2 otherwise CBC is normal. D-dimer 1.38. BUN 33 and creatinine 0.71. AST 61, ALT 62, LDH 1343. C-reactive protein 37.2 which is improved from last draw. Repeat chest x-ray reveals diffuse bilateral airspace disease left greater than right un changed. Slight worsening within the lingula. 05/24 patient examined bedside known to worsening since yesterday remains on 15 L nasal cannula. He is comfortable in bed denies any cough or chest pain. Continue Decadron 6 mg IV every 12 with Lovenox 40 every 24 hours. Continue to use incentive spirometer. Pulmicort twice daily. 05/25 patient examined at bedside. Denies any shortness of breath or chest pain. She is maintaining [id number]% on 15 L of high flow nonrebreather. Patient is comfortable denies any cough or worsening shortness of breath on exertion. Denies any lower extremity edema or skin changes. Continues to get pro-air and Pulmicort as needed for shortness of breath. Continue Decadron 6 mg IV every 12 and Lovenox 40 every 24 hours. Repeat labs ordered for tomorrow morning 05/26: Patient has been afebrile, heart rate 58, blood pressure 131/64, pulse ox 92% on 15 L high flow nasal cannula. Repeat blood work reveals d-dimer 3.71. Electrolytes normal. Creatinine 0.5. Blood sugar 127. Ferritin 482.3, total bilirubin 0.8, AST 41, ALT 81, applying phosphatase 68. LDH 499 which is improved and C-reactive protein is improved at 0.4. The patient continues to have cough and intermittent sputum production which she states is darker in color. Mucinex added. REVIEW OF SYSTEMS Constitutional: No fever, no chills, no night sweats. No weight change. Reports weakness, Reports fatigue. No daytime sleepiness. EENT: No headache. No blurred vision or double vision, no loss of vision. No dizziness. No nasal drainage or congestion. No epistaxis. No sore throat. Lungs: Reports shortness of breath continued, Reports cough, reports sputum production. No wheezing. Cardiovascular: No chest pain, no lower extremity edema. No palpitations. No paroxysmal nocturnal dyspnea. No orthopnea. No lightheadedness or dizziness. No syncopal episodes. Abdominal: No abdominal pain. No nausea, vomiting. No diarrhea. No constipation. No bloody or tarry stools. No loss of appetite. Genitourinary: No dysuria, increased frequency, urgency. No urinary retention. Musculoskeletal: No myalgias. No muscle weakness, no gait dysfunction, no frequent falls. No back pain. No neck pain. Integumentary: No wounds, no lesions. No rash or pruritus. No unusual bruising. No change in hair or nails. Neurologic: No aphasia. No facial droop. No change in mentation. No head injury. No headache. No paralysis. No paresthesia. Psychiatric: No depression. No anxiety. Reports insomnia is improved. Endocrine: No abnormal blood sugars. No weight change. PHYSICAL EXAMINATION Gen: This is a 64-year-old morbidly obese female. Patient is resting in recliner and appears to be comfortable at rest. HEENT: Head is atraumatic, normocephalic. Pupils equal, round. Sclerae is anicteric. NECK: Supple. No JVD. No lymphadenopathy. No thyromegaly. LUNGS: Diminished bilaterally. No wheezes or rhonchi. No intercostal retractions. HEART: Regular rate and rhythm. No murmur. ABDOMEN: Soft. Bowel sounds are present. No masses. No tenderness. EXTREMITIES: No pedal edema. No calf tenderness. NEUROLOGICAL: Patient is awake, alert and oriented x3. Cranial nerves 2 through 12 are grossly intact. ASSESSMENT AND PLAN 1. Acute hypoxic respiratory failure secondary to Covid 19 pneumonia. Symptoms starting May 10 patient is status post 3 doses of Remdesivir, she is status post one dose of Tocilizumab 05/22, continue dexamethasone 6 mg IV twice daily, with vitamin C, vitamin D, and zinc, Lovenox 40 mg subcu daily, pulmonary consult appreciated. Continue oxygen therapy, currently on 15 L high flow nasal cannula. Mucinex added. 2. History of mild intermittent asthma with exacerbation, on when necessary albuterol, now that she is sick she was requiring Advair at home, consult Dr Olivia 3. Adrenal mass 1.5 cm indeterminate, recommended repeat CAT scan in 6 months, due November 2020 outpatient 4. Covid pneumonia with hypoxia. Consults with pulmonary medicine and infect ious disease appreciated. 5. Johnson, with elevated AST, diet management 6. Hypertension, lisinopril 20 mg daily 7. DVT prophylaxis Lovenox 40 mg daily 8. Insomnia, start melatonin 6 mg at bedtime 9. BMI of 45, A1c is 5.4. DISCHARGE PLAN Home. Impression and plan of care have been directed as dictated by the signing physician. Katie Iniguez nurse practitioner acting as scribe for signing physician. Objective - Vital Signs Vital signs: Vital Signs Temp 97.4 F L 05/26/20 05:45 Pulse 50 L 05/26/20 05:45 Resp 22 05/26/20 05:45 BP 135/71 05/26/20 05:45 Pulse Ox 94 L 05/26/20 05:45 Intake & Output 05/25/20 05/26/20 05/26/20 18:59 06:59 18:59 Intake Total 1200 Balance 1200 Intake: Oral 1200 Other: # Voids 1 # Bowel Movements 1 - Labs CBC & Chem 7: 05/23/20 07:13 05/26/20 05:53 Labs: Abnormal Lab Results - Last 24 Hours (Table) 05/26/20 Range/Units 05:53 D-Dimer 3.71 H (<0.60) mg/L FEU
[2020-05-26 15:11] VITALS: BMI 45.4
--- NOTE | 2020-05-26 15:30 | P.PN ---
Subjective Progress Note Date: 05/26/20 Principal diagnosis: Hypoxia, pneumonia, COVID-19 64-year-old female patient, asthmatic, chemistry burst department with symptoms of sore throat and body aches and fever or worsening shortness of breath and the symptoms started on 05/10/2020.. The patient also had some diarrhea muscle aches and chills along with shortness of breath. Her breathing got worse over the past 2 days. The patient came into the emergency department. The patient was found to be hypoxic with pulse ox of 80% and the patient was placed on 2 L of oxygen by nasal cannula. The white cell count was 6.8 and the patient had lymphopenia. D-dimer was at 0.77, renal function was normal with a creatinine of 0.56. The platelet count was low at 121 and the patient's lactic acid level was at 1.5. The chest x-ray showing diffuse bilateral airspace disease and multifocal pulmonary opacities. CT angiogram showed no evidence of any pulmonary embolism. Patchy and confluent bilateral pulmonary consolidation and groundglass changes seen. The patient was also found to have a small hiatal hernia. Patient checked positive for COVID 19 infection and the patient is currently on Decadron 6 mg IV every 24 hours, Lovenox 40 mg subcu every 24 hours. Over the past 10-12 hours, the patient and wean down from 6 L down to 3 L of oxygen by nasal cannula. On 05/21/2020 patient seen in follow-up on medical surgical floor, she is currently up to 18 L on high flow nasal cannula, her pulse ox is anywhere from 87-90, does not appear to be in any acute distress, however easily desaturates, lung sounds reveal diffuse coarse crackles bilaterally. Occasional cough, chest x-ray, today's labs have been reviewed, d-dimer 0.70, electrolytes and renal profile were fairly unremarkable, LDH has increased to 1339, and CRP is 74.5, pro calcitonin level is negative at 0.07. No abdominal pain, no vomiting, no diarrhea. On the 05/22/2020 patient seen in follow-up on medical surgical floor, today is day 3 of Remdesivir, however her oxygenation has much worsened, and she is on nonrebreather in addition to high flow nasal cannula pulse ox is 92%, is easily desaturate, but appears to be in no acute distress, she is afebrile, hemodynamically she stable, chest x-ray today shows worsening bilateral patchy infiltrates. She has been on Lovenox 40 mg daily, and Decadron 6 mg twice daily On 05/26/2020 patient seen in follow-up on medical surgical floor, she remains on high flow oxygen, at 15 L, pulse ox 92%, she's been currently, she is currently resting in bed, she's been sitting up in a chair, tolerating activity well, she is status post Toci and convalescent plasma, she remains on dexamethasone 6 mg twice daily, multivitamins, and prophylactic Lovenox, today's labs have been noted. Objective - Vital Signs Vital signs: Vital Signs Temp 98.5 F 05/26/20 13:00 Pulse 61 05/26/20 13:00 Resp 19 05/26/20 13:00 BP 105/53 05/26/20 13:00 Pulse Ox 92 L 05/26/20 13:00 Intake & Output 05/25/20 05/26/20 05/26/20 18:59 06:59 18:59 Intake Total 1200 Balance 1200 Weight 131.542 kg Intake: Oral 1200 Other: # Voids 1 # Bowel Movements 1 - Exam GENERAL EXAM: Alert, very pleasant, 64-year-old white female on 15 L of high flow oxygen and O2 sat is 92%, HEAD: Normocephalic/atraumatic. EYES: Normal reaction of pupils, equal size. Conjunctiva pink, sclera white. NOSE: Clear with pink turbinates. THROAT: No erythema or exudates. NECK: No masses, no JVD, no thyroid enlargement, no adenopathy. CHEST: No chest wall deformity. Symmetrical expansion. LUNGS: Equal air entry with diffuse crackles CVS: Regular rate and rhythm, normal S1 and S2, no gallops, no murmurs, no rubs ABDOMEN: Soft, nontender. No hepatosplenomegaly, normal bowel sounds, no guarding or rigidity. EXTREMITIES: No clubbing, no edema, no cyanosis, 2+ pulses and upper and lower extremities. MUSCULOSKELETAL: Muscle strength and tone normal. SPINE: No scoliosis or deformity SKIN: No rashes CENTRAL NERVOUS SYSTEM: Alert and oriented -3. No focal deficits, tone is n ormal in all 4 extremities. PSYCHIATRIC: Alert and oriented -3. Appropriate affect. Intact judgment and insight. - Labs CBC & Chem 7: 05/23/20 07:13 05/26/20 05:53 Labs: Abnormal Lab Results - Last 24 Hours (Table) 05/26/20 05/26/20 Range/Units 05:53 05:53 D-Dimer 3.71 H (<0.60) mg/L FEU Creatinine 0.5 L (0.6-1.5) mg/dL BUN/Creatinine Ratio 48.00 H (12.00-20.00) Ratio Glucose 127 H (70-110) mg/dL Ferritin 482.3 H (10.0-291.0) ng/mL AST 41 H (13-35) U/L ALT 81 H (8-44) U/L Lactate Dehydrogenase 499 H (120-246) U/L Total Protein 5.3 L (6.2-8.2) g/dL Albumin 3.40 L (3.80-4.90) g/dL Assessment and Plan Plan: Assessment: 1 acute COVID 19 related pneumonia, symptoms started on 05/10/2020 and the patient presented emergency on 05/19/2020 with pneumonia by the pulmonary infiltrates confirmed and a chest x-ray to see angiogram. D-dimer is not elevated. CT abdomen showing no evidence of any pulmonary embolism. Bilateral groundglass pulmonary infiltrates and consolidations. Started Remdesivir on 05/20/2020, it was discontinued on 05/22/2020 in view of worsening hypoxemia and patient was given a dose of Actemra of 800 mg 2 acute hypoxic respiratory failure , is worsened since admission, currently on 15 L of oxygen 3 obesity with a BMI of 45.4 4 history of bronchial asthma maintained on inhalers such as Advair outpatient basis 5 MTZ 6 hypertension Plan: Continue current dose IV Decadron Continue current dose Lovenox We'll obtain follow-up inflammatory markers and d-dimer Weaning FiO2 to keep O2 sats ration at or above 90% Encourage deep breathing and coughing incentive spirometry use Encouraged patient to sit up in the chair We'll continue to follow I performed a history & physical examination of the patient and discussed their management with my nurse practitioner, Toma Cotto. I reviewed the nurse practitioner's note and agree with the documented findings and plan of care. Lung sounds are positive for diminished breath sounds. The findings and the impression was discussed with the patient. I attest to the documentation by the nurse practitioner. Time with Patient: Less than 30
--- NOTE | 2020-05-26 16:09 | PN ---
PROGRESS NOTE DATE OF SERVICE: 05/26/2020 REASON FOR FOLLOWUP: COVID-19 pneumonia. INTERVAL HISTORY: The patient is afebrile. The patient is breathing slightly comfortably. The patient denies having any chest pain or worsening cough. No abdominal pain or diarrhea. PHYSICAL EXAMINATION: Blood pressure 105/53 with a pulse of 61, temperature 98.5. She is 92% on 15 L high- flow oxygen. General description is a middle-aged female lying in bed in no distress. RESPIRATORY SYSTEM: Unlabored breathing, decreased intensity of breath sounds. No wheeze. HEART: S1, S2. Regular rate and rhythm. ABDOMEN: Soft, no tenderness. LABS: D-Dimer 3.72. BUN of 24, creatinine 0.5. DIAGNOSTIC IMPRESSION AND PLAN: Patient with acute COVID-19 pneumonia in this patient has received remdesivir as well as Actemra, currently on dexamethasone, ascorbic acid, Lovenox, zinc along with respiratory support and monitor clinical course closely. MMODL / IJN: [id number] /
[2020-05-26] MEDS: MELATONIN 3 MG TABLET PO SCH (20:06)
[2020-05-27] MEDS: SYMBICORT 160-4.5 MCG INHALER INHALATION SCH ×2 (08:01→21:19)
[2020-05-27] MEDS: ENOXAPARIN 40 MG/0.4 ML SYRINGE SQ SCH (08:17)
[2020-05-27] MEDS: DEXAMETHASONE SOD PHOSPHATE 10 MG/ML 1 ML VIAL IV SCH ×2 (08:17→20:43)
[2020-05-27] MEDS: SENNOSIDES-DOCUSATE SODIUM 1 EACH TAB PO SCH (08:17)
[2020-05-27] MEDS: guaiFENesin 600 MG TABLET.ER PO SCH ×2 (08:18→20:42)
[2020-05-27] MEDS: lisinopriL 20 MG TAB PO SCH (08:18)
[2020-05-27] MEDS: MAGNESIUM OXIDE 400 MG TAB PO SCH (08:18)
[2020-05-27] MEDS: ASCORBIC ACID 500 MG TAB PO SCH (08:18)
[2020-05-27] MEDS: CHOLECALCIFEROL 25 MCG (1000 IU) TABLET PO SCH (08:18)
[2020-05-27] MEDS: MULTIVITAMINS, THERA 1 EACH TAB PO SCH (08:18)
[2020-05-27] MEDS: amLODIPine 10 MG TAB PO SCH (08:18)
[2020-05-27] MEDS: OXYBUTYNIN 10 MG TAB.ER.24 PO SCH (08:19)
--- NOTE | 2020-05-27 13:42 | P.PN ---
Subjective Progress Note Date: 05/27/20 HISTORY OF PRESENT ILLNESS This is a pleasant 64-year-old female, patient of Dr. Rohit Jackson she has underlying asthma, not requiring any maintenance oral steroids or oxygen, mild intermittent in nature, on Proventil, she has a prior smoking history, quit at age 27, She comes into the emergency room with sore throat, body aches fever, and worsening shortness of breath, symptoms started 4/3 days had productive cough with diarrhea, muscle aches, chills, shortness of breath, for which it has progressed till 2 days prior admission, requiring now on ER visit. She also has chest pressure, no hemoptysis, patient denies any daily or DVT in the past. In the emergency room, she was noted to the hypoxemic with O2 sats at 88% on room air, requiring 2 L nasal cannula, she has CTA of the chest, showing borderline suboptimal opacification of pulmonary arterial system, no large ce ntral pulmonary emboli is identified, there are many lobar segmental and more distal arterial branches are nondiagnostic in embolizing, patchy bilateral infiltrates of groundglass consolidation, no pleural effusion, small hiatal hernia, indeterminate 1.5 cm nodularity left adrenal gland. Imaging consistent with confluent covered pneumonia, fatty liver, six-month follow-up for adrenal mass protocol was recommended. Left adrenal 1.5 cm adrenal nodule that shows 6.8 WBC, neutrophils normal, lymphocytes low at 0.6, d-dimer slightly elevated 0.77, creatinine 0.56, glucose 113, lactic acid normal 1.5, AST 70 elevated no sed rate no CRP no pro-calcitonin no ferritin no LDH obtained no EKG for review, consult was made with Dr. Garg, infectious disease 05/20: Patient states her breathing is a little bit better today and she slept well last night and thinks this has significantly impact her overall condition. She denies having any leg pain. She is currently on O2 at 3 L with pulse ox of 90%. Patient is been afebrile, heart rate 72, blood pressure 128/71. Repeat CBC reveals platelet count of 132, lymphocytes 0.87. Jazmine Tsai added. Patient is on day #2/5 of Remdesivir. 05/21: Patient is on day #3/5 of Remdesivir. [place] did not help with her insomnia last night and patient is requesting Benadryl which will be added. She states she is eating well. She is currently pulse oxing 87% on 13 L and was increased to 15 L nasal cannula with pulse ox of 90%. She has been afebrile, heart rate 75, blood pressure 160/67. 05/22: Patient's pulse ox is 90% on high flow nasal cannula 15 L with nonrebreather mask as well. Patient is been afebrile, heart rate 74, blood pressure 129/60. Repeat chest x-ray reveals worsening bilateral patchy infiltrates. Patient states that she slept better last night and received Benadryl. She continues to have cough. She states she is eating well. No choking episodes. Patient has received 3 doses of Remdesivir. Today, pulmonary medicine has ordered Tocilizumab. Patient is also continued on Symbicort, dexamethasone, Lovenox, vitamins. 05/23: Patient continues to have shortness of breath with his more comfortable today. She did have a bowel movement last night after prune juice. She continues to have some lower extremity edema despite receiving Lasix yesterday. Repeat dose of IV Lasix 40 mg 1 today. Patient has been afebrile, heart rate 66, respiratory rate 25, blood pressure 124/77, pulse ox 90% on 15 L high flow nasal cannula and nonrebreather. Repeat blood work reveals WBC 1.2 otherwise CBC is normal. D-dimer 1.38. BUN 33 and creatinine 0.71. AST 61, ALT 62, LDH 1343. C-reactive protein 37.2 which is improved from last draw. Repeat chest x-ray reveals diffuse bilateral airspace disease left greater than right un changed. Slight worsening within the lingula. 05/24 patient examined bedside known to worsening since yesterday remains on 15 L nasal cannula. He is comfortable in bed denies any cough or chest pain. Continue Decadron 6 mg IV every 12 with Lovenox 40 every 24 hours. Continue to use incentive spirometer. Pulmicort twice daily. 05/25 patient examined at bedside. Denies any shortness of breath or chest pain. She is maintaining -07% on 15 L of high flow nonrebreather. Patient is comfortable denies any cough or worsening shortness of breath on exertion. Denies any lower extremity edema or skin changes. Continues to get pro-air and Pulmicort as needed for shortness of breath. Continue Decadron 6 mg IV every 12 and Lovenox 40 every 24 hours. Repeat labs ordered for tomorrow morning 05/26: Patient has been afebrile, heart rate 58, blood pressure 131/64, pulse ox 92% on 15 L high flow nasal cannula. Repeat blood work reveals d-dimer 3.71. Electrolytes normal. Creatinine 0.5. Blood sugar 127. Ferritin 482.3, total bilirubin 0.8, AST 41, ALT 81, applying phosphatase 68. LDH 499 which is improved and C-reactive protein is improved at 0.4. The patient continues to have cough and intermittent sputum production which she states is darker in color. Mucinex added. 05/27: Patient states that she did not sleep well last night. She states melatonin did not help her. Patient will be started on Xanax 0.25 mg at bedtime as needed to help with sleep. She states she also had a dizzy spell last evening. She denies any dizziness at this time. She continues to have cough. Patient is on 12 L nasal cannula decreased this morning from 15 L. Pulse ox is 94%. She has been afebrile, heart rate 54, blood pressure 117/69. D-dimer is 3.19. REVIEW OF SYSTEMS Constitutional: No fever, no chills, no night sweats. No weight change. Reports weakness, Reports fatigue. No daytime sleepiness. EENT: No headache. No blurred vision or double vision, no loss of vision. No dizziness. No nasal drainage or congestion. No epistaxis. No sore throat. Lungs: Reports shortness of breath continued, Reports cough, reports sputum production. No wheezing. Cardiovascular: No chest pain, no lower extremity edema. No palpitations. No paroxysmal nocturnal dyspnea. No orthopnea. No lightheadedness or dizziness. No syncopal episodes. Abdominal: No abdominal pain. No nausea, vomiting. No diarrhea. No constipation. No bloody or tarry stools. No loss of appetite. Genitourinary: No dysuria, increased frequency, urgency. No urinary retention. Musculoskeletal: No myalgias. No muscle weakness, no gait dysfunction, no frequent falls. No back pain. No neck pain. Integumentary: No wounds, no lesions. No rash or pruritus. No unusual bruisi ng. No change in hair or nails. Neurologic: No aphasia. No facial droop. No change in mentation. No head injury. No headache. No paralysis. No paresthesia. Psychiatric: No depression. No anxiety. Reports insomnia. Endocrine: No abnormal blood sugars. No weight change. PHYSICAL EXAMINATION Gen: This is a 64-year-old morbidly obese female. Patient is resting in bed and appears to be comfortable at rest. HEENT: Head is atraumatic, normocephalic. Pupils equal, round. Sclerae is anicteric. NECK: Supple. No JVD. No lymphadenopathy. No thyromegaly. LUNGS: Diminished bilaterally. No wheezes or rhonchi. No intercostal retractions. HEART: Regular rate and rhythm. No murmur. ABDOMEN: Soft. Bowel sounds are present. No masses. No tenderness. EXTREMITIES: No pedal edema. No calf tenderness. NEUROLOGICAL: Patient is awake, alert and oriented x3. Cranial nerves 2 through 12 are grossly intact. ASSESSMENT AND PLAN 1. Acute hypoxic respiratory failure secondary to Covid 19 pneumonia. Symptoms starting May 10 patient is status post 3 doses of Remdesivir, she is status post one dose of Tocilizumab 05/22, continue dexamethasone 6 mg IV twice daily, with vitamin C, vitamin D, and zinc, Lovenox 40 mg subcu daily, pulmonary consult appreciated. Continue oxygen therapy, currently on 12 L high flow nasal cannula. Mucinex added. 2. History of mild intermittent asthma with exacerbation, on when necessary albuterol, now that she is sick she was requiring Advair at home, consult Dr Olivia 3. Adrenal mass 1.5 cm indeterminate, recommended repeat CAT scan in 6 months, due November 2020 outpatient 4. Covid pneumonia with hypoxia. Consults with pulmonary medicine and infectious disease appreciated. 5. Johnson, with elevated AST, diet management 6. Hypertension, lisinopril 20 mg daily 7. DVT prophylaxis Lovenox 40 mg daily 8. Insomnia, start melatonin 6 mg at bedtime 9. BMI of 45, A1c is 5.4. 10. Chronic hypoxic respiratory failure requiring home oxygen therapy. Patient requires home oxygen therapy to manage her diagnosis of Covid 19 DISCHARGE PLAN Home. Impression and plan of care have been directed as dictated by the signing physician. Katie Iniguez nurse practitioner acting as scribe for signing physician. Objective - Vital Signs Vital signs: Vital Signs Temp 97.8 F 05/27/20 05:24 Pulse 57 L 05/27/20 05:24 Resp 17 05/27/20 05:24 BP 125/67 05/27/20 05:24 Pulse Ox 92 L 05/27/20 05:24 Intake & Output 05/26/20 05/27/20 05/27/20 18:59 06:59 18:59 Intake Total 1000 Output Total 1 Balance 999 Weight 131.542 kg Intake: Oral 1000 Output: Stool 1 Other: Voiding Method Bedside Commode # Voids 2 2 - Labs CBC & Chem 7: 05/23/20 07:13 05/26/20 05:53 Labs: Abnormal Lab Results - Last 24 Hours (Table) 05/26/20 05/27/20 Range/Units 05:53 07:08 D-Dimer 3.19 H (<0.60) mg/L FEU Creatinine 0.5 L (0.6-1.5) mg/dL BUN/Creatinine Ratio 48.00 H (12.00-20.00) Ratio Glucose 127 H (70-110) mg/dL Ferritin 482.3 H (10.0-291.0) ng/mL AST 41 H (13-35) U/L ALT 81 H (8-44) U/L Lactate Dehydrogenase 499 H (120-246) U/L Total Protein 5.3 L (6.2-8.2) g/dL Albumin 3.40 L (3.80-4.90) g/dL
--- NOTE | 2020-05-27 17:09 | P.PN ---
Subjective Progress Note Date: 05/27/20 Principal diagnosis: Hypoxia, pneumonia, COVID-19 64-year-old female patient, asthmatic, chemistry burst department with symptoms of sore throat and body aches and fever or worsening shortness of breath and the symptoms started on 05/10/2020.. The patient also had some diarrhea muscle aches and chills along with shortness of breath. Her breathing got worse over the past 2 days. The patient came into the emergency department. The patient was found to be hypoxic with pulse ox of 80% and the patient was placed on 2 L of oxygen by nasal cannula. The white cell count was 6.8 and the patient had lymphopenia. D-dimer was at 0.77, renal function was normal with a creatinine of 0.56. The platelet count was low at 121 and the patient's lactic acid level was at 1.5. The chest x-ray showing diffuse bilateral airspace disease and multifocal pulmonary opacities. CT angiogram showed no evidence of any pulmonary embolism. Patchy and confluent bilateral pulmonary consolidation and groundglass changes seen. The patient was also found to have a small hiatal hernia. Patient checked positive for COVID 19 infection and the patient is currently on Decadron 6 mg IV every 24 hours, Lovenox 40 mg subcu every 24 hours. Over the past 10-12 hours, the patient and wean down from 6 L down to 3 L of oxygen by nasal cannula. On 05/21/2020 patient seen in follow-up on medical surgical floor, she is currently up to 18 L on high flow nasal cannula, her pulse ox is anywhere from 87-90, does not appear to be in any acute distress, however easily desaturates, lung sounds reveal diffuse coarse crackles bilaterally. Occasional cough, chest x-ray, today's labs have been reviewed, d-dimer 0.70, electrolytes and renal profile were fairly unremarkable, LDH has increased to 1339, and CRP is 74.5, pro calcitonin level is negative at 0.07. No abdominal pain, no vomiting, no diarrhea. On the 05/22/2020 patient seen in follow-up on medical surgical floor, today is day 3 of Remdesivir, however her oxygenation has much worsened, and she is on nonrebreather in addition to high flow nasal cannula pulse ox is 92%, is easily desaturate, but appears to be in no acute distress, she is afebrile, hemodynamically she stable, chest x-ray today shows worsening bilateral patchy infiltrates. She has been on Lovenox 40 mg daily, and Decadron 6 mg twice daily On 05/26/2020 patient seen in follow-up on medical surgical floor, she remains on high flow oxygen, at 15 L, pulse ox 92%, she's been currently, she is currently resting in bed, she's been sitting up in a chair, tolerating activity well, she is status post Toci and convalescent plasma, she remains on dexamethasone 6 mg twice daily, multivitamins, and prophylactic Lovenox, today's labs have been noted. On 05/27/2020 patient seen in follow-up on medical surgical floor, her FiO2 is being weaned, and patient is currently on 9 L of oxygen pulse ox of 97%, looks very comfortable, no worsening dyspnea, minimal cough, she feels like she is improving, we did cut back to FiO2 further to 5 L, and her O2 sat will be rechecked and have an hour. She remains on Decadron 6 blood gram twice daily, she is on Lovenox at prophylactic dose. Today's labs have been reviewed, showing d-dimer 3.19, and weakness labs are pending, pro calcitonin level was negative. She has no specific complaints Objective - Vital Signs Vital signs: Vital Signs Temp 98.2 F 05/27/20 14:00 Pulse 63 05/27/20 14:00 Resp 24 05/27/20 14:00 BP 140/75 05/27/20 14:00 Pulse Ox 95 05/27/20 16:13 Intake & Output 05/26/20 05/27/20 05/27/20 18:59 06:59 18:59 Intake Total 1000 Output Total 1 Balance 999 Weight 131.542 kg Intake: Oral 1000 Output: Stool 1 Other: Voiding Method Bedside Commode # Voids 2 2 3 - Exam GENERAL EXAM: Alert, very pleasant, 64-year-old white female on 9 L of high flow oxygen and O2 sat is 99%, and her FiO2 was cut back to 5 L and she is main taining O2 sat at around 95% HEAD: Normocephalic/atraumatic. EYES: Normal reaction of pupils, equal size. Conjunctiva pink, sclera white. NOSE: Clear with pink turbinates. THROAT: No erythema or exudates. NECK: No masses, no JVD, no thyroid enlargement, no adenopathy. CHEST: No chest wall deformity. Symmetrical expansion. LUNGS: Equal air entry with diffuse crackles CVS: Regular rate and rhythm, normal S1 and S2, no gallops, no murmurs, no rubs ABDOMEN: Soft, nontender. No hepatosplenomegaly, normal bowel sounds, no guarding or rigidity. EXTREMITIES: No clubbing, no edema, no cyanosis, 2+ pulses and upper and lower extremities. MUSCULOSKELETAL: Muscle strength and tone normal. SPINE: No scoliosis or deformity SKIN: No rashes CENTRAL NERVOUS SYSTEM: Alert and oriented -3. No focal deficits, tone is normal in all 4 extremities. PSYCHIATRIC: Alert and oriented -3. Appropriate affect. Intact judgment and insight. - Labs CBC & Chem 7: 05/23/20 07:13 05/26/20 05:53 Labs: Abnormal Lab Results - Last 24 Hours (Table) 05/27/20 Range/Units 07:08 D-Dimer 3.19 H (<0.60) mg/L FEU Assessment and Plan Plan: Assessment: 1 acute COVID 19 related pneumonia, symptoms started on 05/10/2020 and the patient presented emergency on 05/19/2020 with pneumonia by the pulmonary infiltrates confirmed and a chest x-ray to see angiogram. D-dimer is not elevated. CT abdomen showing no evidence of any pulmonary embolism. Bilateral groundglass pulmonary infiltrates and consolidations. Started Remdesivir on 05/20/2020, it was discontinued on 05/22/2020 in view of worsening hypoxemia and patient was given a dose of Actemra of 800 mg 2 acute hypoxic respiratory failure , is worsened since admission, currently on 15 L of oxygen 3 obesity with a BMI of 45.4 4 history of bronchial asthma maintained on inhalers such as Advair outpatient basis 5 MTZ 6 hypertension Plan: Continue weaning FiO2 to keep O2 sats ration at or above 89-90%, on 25 L, continue weaning further Continue current dose IV Decadron Continue current dose Lovenox Encourage deep breathing and coughing incentive spirometry use Encouraged patient to sit up in the chair If remains at 5 L or less and continues to improve clinically may consider discharge home I performed a history & physical examination of the patient and discussed their management with my nurse practitioner, Toma Cotto. I reviewed the nurse practitioner's note and agree with the documented findings and plan of care. Lung sounds are positive for diminished breath sounds. The findings and the impression was discussed with the patient. I attest to the documentation by the nurse practitioner. Time with Patient: Less than 30
[2020-05-27] MEDS: MELATONIN 3 MG TABLET PO SCH (20:42)
[2020-05-28 00:42] LABS: African American GFR (CKD) 113.2 (60.0-200.0); Albumin 3.3 g/dL (3.80-4.90); Albumin/Globulin Ratio 1.83 (1.60-3.17); Anion Gap 14.1 mmol/L (4.00-12.00); BUN/Creat Ratio 38.33 Ratio (12.00-20.00); Carbon Dioxide 23.9 mmol/L (21.6-31.8); Globulin 1.8 g/dL (1.6-3.3); Non-African American GFR(CKD) 97.7 (60.0-200.0); Potassium 5.4 mmol/L (3.5-5.5); Total Bilirubin 0.7 mg/dL (0.2-1.2); Total Protein 5.1 g/dL (6.2-8.2)
--- NOTE | 2020-05-28 02:13 | PN ---
PROGRESS NOTE DATE OF SERVICE: 05/27/2020 REASON FOR FOLLOWUP: COVID-19 pneumonia. INTERVAL HISTORY: Patient is afebrile. The patient is breathing more comfortably. The patient denies having any chest pain. She did have a cough. No sputum production. No nausea, no vomiting. No abdominal pain. No diarrhea. PHYSICAL EXAMINATION: Her blood pressure 122/73 with a pulse of 63, temperature 97.5. She is 94% on 5 L nasal cannula. General description is a middle-aged female lying in bed in no distress. Respiratory system: Unlabored breathing, decreased intensity of breath sounds. No wheeze. HEART: S1, S2. Regular rate and rhythm. Abdomen soft, no tenderness. LABS: BUN of 24, creatinine 0.5. D. dimer is down to 3.19. DIAGNOSTIC IMPRESSION/PLAN: Patient with COVID-19 pneumonia in this patient with a slow clinical response. The patient has completed her Remdesivir and received a dose of Actemra, currently on dexamethasone, zinc, ascorbic acid, Lovenox to continue along with respiratory support and monitor clinical course closely. MMODL / IJN: [id number] /
[2020-05-28] MEDS: SYMBICORT 160-4.5 MCG INHALER INHALATION SCH ×2 (09:23→19:47)
[2020-05-28] MEDS: MAGNESIUM OXIDE 400 MG TAB PO SCH (09:57)
[2020-05-28] MEDS: ENOXAPARIN 40 MG/0.4 ML SYRINGE SQ SCH (09:57)
[2020-05-28] MEDS: ASCORBIC ACID 500 MG TAB PO SCH (09:57)
[2020-05-28] MEDS: MULTIVITAMINS, THERA 1 EACH TAB PO SCH (09:57)
[2020-05-28] MEDS: CHOLECALCIFEROL 25 MCG (1000 IU) TABLET PO SCH (09:57)
[2020-05-28] MEDS: DEXAMETHASONE SOD PHOSPHATE 10 MG/ML 1 ML VIAL IV SCH ×2 (09:57→20:25)
[2020-05-28] MEDS: amLODIPine 10 MG TAB PO SCH (09:57)
[2020-05-28] MEDS: lisinopriL 20 MG TAB PO SCH (09:57)
[2020-05-28] MEDS: SENNOSIDES-DOCUSATE SODIUM 1 EACH TAB PO SCH (09:57)
[2020-05-28] MEDS: guaiFENesin 600 MG TABLET.ER PO SCH ×2 (09:57→20:25)
[2020-05-28] MEDS: OXYBUTYNIN 10 MG TAB.ER.24 PO SCH (09:58)
[2020-05-28 11:41] LABS: African American GFR (CKD) 120.2 (60.0-200.0); Albumin 3.3 g/dL (3.80-4.90); Albumin/Globulin Ratio 1.94 (1.60-3.17); Anion Gap 6.6 mmol/L (4.00-12.00); Calcium 8.3 mg/dL (8.7-10.3); Carbon Dioxide 29.4 mmol/L (21.6-31.8); Globulin 1.7 g/dL (1.6-3.3); Non-African American GFR(CKD) 103.7 (60.0-200.0); Potassium 5.1 mmol/L (3.5-5.5); Total Bilirubin 0.8 mg/dL (0.2-1.2)
--- NOTE | 2020-05-28 11:54 | P.PN ---
Subjective Progress Note Date: 05/28/20 HISTORY OF PRESENT ILLNESS This is a pleasant 64-year-old female, patient of Dr. Rohit Jackson she has underlying asthma, not requiring any maintenance oral steroids or oxygen, mild intermittent in nature, on Proventil, she has a prior smoking history, quit at age 27, She comes into the emergency room with sore throat, body aches fever, and worsening shortness of breath, symptoms started 4/3 days had productive cough with diarrhea, muscle aches, chills, shortness of breath, for which it has progressed till 2 days prior admission, requiring now on ER visit. She also has chest pressure, no hemoptysis, patient denies any daily or DVT in the past. In the emergency room, she was noted to the hypoxemic with O2 sats at 88% on room air, requiring 2 L nasal cannula, she has CTA of the chest, showing borderline suboptimal opacification of pulmonary arterial system, no large ce ntral pulmonary emboli is identified, there are many lobar segmental and more distal arterial branches are nondiagnostic in embolizing, patchy bilateral infiltrates of groundglass consolidation, no pleural effusion, small hiatal hernia, indeterminate 1.5 cm nodularity left adrenal gland. Imaging consistent with confluent covered pneumonia, fatty liver, six-month follow-up for adrenal mass protocol was recommended. Left adrenal 1.5 cm adrenal nodule that shows 6.8 WBC, neutrophils normal, lymphocytes low at 0.6, d-dimer slightly elevated 0.77, creatinine 0.56, glucose 113, lactic acid normal 1.5, AST 70 elevated no sed rate no CRP no pro-calcitonin no ferritin no LDH obtained no EKG for review, consult was made with Dr. Garg, infectious disease 05/20: Patient states her breathing is a little bit better today and she slept well last night and thinks this has significantly impact her overall condition. She denies having any leg pain. She is currently on O2 at 3 L with pulse ox of 90%. Patient is been afebrile, heart rate 72, blood pressure 128/71. Repeat CBC reveals platelet count of 132, lymphocytes 0.87. Jazmine Tsai added. Patient is on day #2/5 of Remdesivir. 05/21: Patient is on day #3/5 of Remdesivir. [place] did not help with her insomnia last night and patient is requesting Benadryl which will be added. She states she is eating well. She is currently pulse oxing 87% on 13 L and was increased to 15 L nasal cannula with pulse ox of 90%. She has been afebrile, heart rate 75, blood pressure 160/67. 05/22: Patient's pulse ox is 90% on high flow nasal cannula 15 L with nonrebreather mask as well. Patient is been afebrile, heart rate 74, blood pressure 129/60. Repeat chest x-ray reveals worsening bilateral patchy infiltrates. Patient states that she slept better last night and received Benadryl. She continues to have cough. She states she is eating well. No choking episodes. Patient has received 3 doses of Remdesivir. Today, pulmonary medicine has ordered Tocilizumab. Patient is also continued on Symbicort, dexamethasone, Lovenox, vitamins. 05/23: Patient continues to have shortness of breath with his more comfortable today. She did have a bowel movement last night after prune juice. She continues to have some lower extremity edema despite receiving Lasix yesterday. Repeat dose of IV Lasix 40 mg 1 today. Patient has been afebrile, heart rate 66, respiratory rate 25, blood pressure 124/77, pulse ox 90% on 15 L high flow nasal cannula and nonrebreather. Repeat blood work reveals WBC 1.2 otherwise CBC is normal. D-dimer 1.38. BUN 33 and creatinine 0.71. AST 61, ALT 62, LDH 1343. C-reactive protein 37.2 which is improved from last draw. Repeat chest x-ray reveals diffuse bilateral airspace disease left greater than right un changed. Slight worsening within the lingula. 05/24 patient examined bedside known to worsening since yesterday remains on 15 L nasal cannula. He is comfortable in bed denies any cough or chest pain. Continue Decadron 6 mg IV every 12 with Lovenox 40 every 24 hours. Continue to use incentive spirometer. Pulmicort twice daily. 05/25 patient examined at bedside. Denies any shortness of breath or chest pain. She is maintaining dijwum07-29% on 15 L of high flow nonrebreather. Patient is comfortable denies any cough or worsening shortness of breath on exertion. Denies any lower extremity edema or skin changes. Continues to get pro-air and Pulmicort as needed for shortness of breath. Continue Decadron 6 mg IV every 12 and Lovenox 40 every 24 hours. Repeat labs ordered for tomorrow morning 05/26: Patient has been afebrile, heart rate 58, blood pressure 131/64, pulse ox 92% on 15 L high flow nasal cannula. Repeat blood work reveals d-dimer 3.71. Electrolytes normal. Creatinine 0.5. Blood sugar 127. Ferritin 482.3, total bilirubin 0.8, AST 41, ALT 81, applying phosphatase 68. LDH 499 which is improved and C-reactive protein is improved at 0.4. The patient continues to have cough and intermittent sputum production which she states is darker in color. Mucinex added. 05/27: Patient states that she did not sleep well last night. She states melatonin did not help her. Patient will be started on Xanax 0.25 mg at bedtime as needed to help with sleep. She states she also had a dizzy spell last evening. She denies any dizziness at this time. She continues to have cough. Patient is on 12 L nasal cannula decreased this morning from 15 L. Pulse ox is 94%. She has been afebrile, heart rate 54, blood pressure 117/69. D-dimer is 3.19. 05/28: Patient is currently on high flow nasal cannula at 5 L with pulse ox of 94-96%. Heart rate 49-53. Afebrile. The pressure 115/50. Repeat blood work reveals d-dimer 3.65. Electrolytes and renal function normal. Blood sugar 114. AST 40, ALT 115. Patient denies having any abdominal pain. No lower extremity edema. Plan for discharge home on Tuesday. REVIEW OF SYSTEMS Constitutional: No fever, no chills, no night sweats. No weight change. Reports weakness, Reports fatigue. No daytime sleepiness. EENT: No headache. No blurred vision or double vision, no loss of vision. No dizziness. No nasal drainage or congestion. No epistaxis. No sore throat. Lungs: Reports shortness of breath continued, Reports cough, reports sputum production. No wheezing. Cardiovascular: No chest pain, no lower extremity edema. No palpitations. No paroxysmal nocturnal dyspnea. No orthopnea. No lightheadedness or dizziness. No syncopal episodes. Abdominal: No abdominal pain. No nausea, vomiting. No diarrhea. No constipation. No bloody or tarry stools. No loss of appetite. Genitourinary: No dysuria, increased frequency, urgency. No urinary retention. Musculoskeletal: No myalgias. No muscle weakness, no gait dysfunction, no frequent falls. No back pain. No neck pain. Integumentary: No wounds, no lesions. No rash or pruritus. No unusual bruising. No change in hair or nails. Neurologic: No aphasia. No facial droop. No change in mentation. No head injury. No headache. No paralysis. No paresthesia. Psychiatric: No depression. No anxiety. Reports insomnia. Endocrine: No abnormal blood sugars. No weight change. PHYSICAL EXAMINATION Gen: This is a 64-year-old morbidly obese female. Patient is resting in bed and appears to be comfortable at rest. Currently on 5 L high flow nasal cannula. HEENT: Head is atraumatic, normocephalic. Pupils equal, round. Sclerae is anicteric. NECK: Supple. No JVD. No lymphadenopathy. No thyromegaly. LUNGS: Diminished bilaterally. No wheezes or rhonchi. No intercostal retractions. HEART: Regular rate and rhythm. No murmur. ABDOMEN: Soft. Bowel sounds are present. No masses. No tenderness. EXTREMITIES: No pedal edema. No calf tenderness. NEUROLOGICAL: Patient is awake, alert and oriented x3. Cranial nerves 2 through 12 are grossly intact. ASSESSMENT AND PLAN 1. Acute hypoxic respiratory failure secondary to Covid 19 pneumonia. Symptoms starting May 10 patient is status post 3 doses of Remdesivir, she is status post one dose of Tocilizumab 05/22, continue dexamethasone 6 mg IV twice daily, with vitamin C, vitamin D, and zinc, Lovenox 40 mg subcu daily, pulmonary consult appreciated. Continue oxygen therapy, currently on 5 L high flow nasal cannula. Mucinex added. 2. History of mild intermittent asthma with exacerbation, on when necessary albuterol, now that she is sick she was requiring Advair at home, consult Dr Olivia 3. Adrenal mass 1.5 cm indeterminate, recommended repeat CAT scan in 6 months, due November 2020 outpatient 4. Covid pneumonia with hypoxia. Consults with pulmonary medicine and infectious disease appreciated. 5. Johnson, with elevated AST, diet management 6. Hypertension, lisinopril 20 mg daily 7. DVT prophylaxis Lovenox 40 mg daily 8. Insomnia, start melatonin 6 mg at bedtime 9. BMI of 45, A1c is 5.4. 10. Chronic hypoxic respiratory failure requiring home oxygen therapy. Patient requires home oxygen therapy to manage her diagnosis of Covid 19 DISCHARGE PLAN Home. Impression and plan of care have been directed as dictated by the signing physician. Katie Iniguez nurse practitioner acting as scribe for signing physician. Objective - Vital Signs Vital signs: Vital Signs Temp 99.1 F 05/28/20 05:39 Pulse 51 L 05/28/20 05:39 Resp 19 05/28/20 05:39 BP 128/70 05/28/20 05:39 Pulse Ox 94 L 05/28/20 05:39 Intake & Output 05/27/20 05/28/20 05/28/20 18:59 06:59 18:59 Intake Total 1000 Output Total 1301 Balance -301 Intake: Oral 1000 Output: Urine 1300 Stool 1 Other: Voiding Method Bedside Commode # Voids 3 2 - Labs CBC & Chem 7: 05/23/20 07:13 05/28/20 06:36 Labs: Abnormal Lab Results - Last 24 Hours (Table) 05/27/20 05/28/20 Range/Units 07:08 06:36 D-Dimer 3.65 H (<0.60) mg/L FEU Anion Gap 14.10 H (4.00-12.00) mmol/L BUN/Creatinine Ratio 38.33 H (12.00-20.00) Ratio Glucose 120 H (70-110) mg/dL Calcium 8.0 L (8.7-10.3) mg/dL AST 47 H (13-35) U/L ALT 109 H (8-44) U/L Total Protein 5.1 L (6.2-8.2) g/dL Albumin 3.30 L (3.80-4.90) g/dL
--- NOTE | 2020-05-28 16:00 | PN ---
PROGRESS NOTE DATE OF SERVICE: 05/28/2020. REASON FOR FOLLOWUP: COVID-19 pneumonia. INTERVAL HISTORY: The patient is afebrile. She mentioned she was having shortness of breath last night. This morning, patient is slightly better. Breathing more comfortably. Denies having any chest pain or any worsening cough. No abdominal pain or diarrhea. PHYSICAL EXAMINATION: Blood pressure is 115/50 with a pulse of 49, temperature 97.5. She is 96% on 5 L nasal cannula. General description is a middle-aged female lying in bed in no distress. RESPIRATORY SYSTEM: Unlabored breathing, decreased intensity of breath sounds. No wheeze. HEART: S1, S2. Regular rate and rhythm. ABDOMEN: Soft, no tenderness. LABS: D-dimer is mildly elevated at 3.65. BUN of 24, creatinine 0.5. DIAGNOSTIC IMPRESSION AND PLAN: Patient with COVID-19 infection in this patient currently covered with dexamethasone, Lovenox, zinc, ascorbic acid to continue. She has completed remdesivir and received Actemra. Continue current supportive treatment and monitor clinical course closely. MMODL / IJN: [id number] /
--- NOTE | 2020-05-28 16:39 | P.PN ---
Subjective Progress Note Date: 05/28/20 Principal diagnosis: Hypoxia, pneumonia, COVID-19 64-year-old female patient, asthmatic, chemistry burst department with symptoms of sore throat and body aches and fever or worsening shortness of breath and the symptoms started on 05/10/2020.. The patient also had some diarrhea muscle aches and chills along with shortness of breath. Her breathing got worse over the past 2 days. The patient came into the emergency department. The patient was found to be hypoxic with pulse ox of 80% and the patient was placed on 2 L of oxygen by nasal cannula. The white cell count was 6.8 and the patient had lymphopenia. D-dimer was at 0.77, renal function was normal with a creatinine of 0.56. The platelet count was low at 121 and the patient's lactic acid level was at 1.5. The chest x-ray showing diffuse bilateral airspace disease and multifocal pulmonary opacities. CT angiogram showed no evidence of any pulmonary embolism. Patchy and confluent bilateral pulmonary consolidation and groundglass changes seen. The patient was also found to have a small hiatal hernia. Patient checked positive for COVID 19 infection and the patient is currently on Decadron 6 mg IV every 24 hours, Lovenox 40 mg subcu every 24 hours. Over the past 10-12 hours, the patient and wean down from 6 L down to 3 L of oxygen by nasal cannula. On 05/21/2020 patient seen in follow-up on medical surgical floor, she is currently up to 18 L on high flow nasal cannula, her pulse ox is anywhere from 87-90, does not appear to be in any acute distress, however easily desaturates, lung sounds reveal diffuse coarse crackles bilaterally. Occasional cough, chest x-ray, today's labs have been reviewed, d-dimer 0.70, electrolytes and renal profile were fairly unremarkable, LDH has increased to 1339, and CRP is 74.5, pro calcitonin level is negative at 0.07. No abdominal pain, no vomiting, no diarrhea. On the 05/22/2020 patient seen in follow-up on medical surgical floor, today is day 3 of Remdesivir, however her oxygenation has much worsened, and she is on nonrebreather in addition to high flow nasal cannula pulse ox is 92%, is easily desaturate, but appears to be in no acute distress, she is afebrile, hemodynamically she stable, chest x-ray today shows worsening bilateral patchy infiltrates. She has been on Lovenox 40 mg daily, and Decadron 6 mg twice daily On 05/26/2020 patient seen in follow-up on medical surgical floor, she remains on high flow oxygen, at 15 L, pulse ox 92%, she's been currently, she is currently resting in bed, she's been sitting up in a chair, tolerating activity well, she is status post Toci and convalescent plasma, she remains on dexamethasone 6 mg twice daily, multivitamins, and prophylactic Lovenox, today's labs have been noted. On 05/27/2020 patient seen in follow-up on medical surgical floor, her FiO2 is being weaned, and patient is currently on 9 L of oxygen pulse ox of 97%, looks very comfortable, no worsening dyspnea, minimal cough, she feels like she is improving, we did cut back to FiO2 further to 5 L, and her O2 sat will be rechecked and have an hour. She remains on Decadron 6 blood gram twice daily, she is on Lovenox at prophylactic dose. Today's labs have been reviewed, showing d-dimer 3.19, and weakness labs are pending, pro calcitonin level was negative. She has no specific complaints On 05/28/2020 patient seen in follow-up on medical surgical floor. Her FiO2 is currently down to 5 L and her pulse oximetry 96-97%, this can probably be weaned further down, no worsening dyspnea, she is resting comfortably in bed, she is afebrile, she is doing very well, no new chest x-ray, today's labs stable d- dimer of 3.65, electrolytes in renal profile are unremarkable, her LDH and CRP were improving a couple days ago, no follow-up inflammatory markers on today's labs. No acute events overnight Objective - Vital Signs Vital signs: Vital Signs Temp 97.9 F 05/28/20 14:00 Pulse 55 L 05/28/20 14:00 Resp 16 05/28/20 14:00 BP 113/70 05/28/20 14:00 Pulse Ox 97 05/28/20 14:00 Intake & Output 05/27/20 05/28/20 05/28/20 18:59 06:59 18:59 Intake Total 1000 Output Total 1301 Balance -301 Intake: Oral 1000 Output: Urine 1300 Stool 1 Other: Voiding Method Bedside Commode # Voids 3 2 - Exam GENERAL EXAM: Alert, very pleasant, 64-year-old white female on 5 L of high flow oxygen and O2 sat is 99% HEAD: Normocephalic/atraumatic. EYES: Normal reaction of pupils, equal size. Conjunctiva pink, sclera white. NOSE: Clear with pink turbinates. THROAT: No erythema or exudates. NECK: No masses, no JVD, no thyroid enlargement, no adenopathy. CHEST: No chest wall deformity. Symmetrical expansion. LUNGS: Equal air entry with diffuse crackles CVS: Regular rate and rhythm, normal S1 and S2, no gallops, no murmurs, no rubs ABDOMEN: Soft, nontender. No hepatosplenomegaly, normal bowel sounds, no guarding or rigidity. EXTREMITIES: No clubbing, no edema, no cyanosis, 2+ pulses and upper and lower extremities. MUSCULOSKELETAL: Muscle strength and tone normal. SPINE: No scoliosis or deformity SKIN: No rashes CENTRAL NERVOUS SYSTEM: Alert and oriented -3. No focal deficits, tone is normal in all 4 extremities. PSYCHIATRIC: Alert and oriented -3. Appropriate affect. Intact judgment and insight. - Labs CBC & Chem 7: 05/23/20 07:13 05/28/20 06:36 Labs: Abnormal Lab Results - Last 24 Hours (Table) 05/27/20 05/28/20 05/28/20 Range/Units 07:08 06:36 06:36 D-Dimer 3.65 H (<0.60) mg/L FEU Anion Gap 14.10 H (4.00-12.00) mmol/L Creatinine 0.5 L (0.6-1.5) mg/dL BUN/Creatinine Ratio 38.33 H 48.00 H (12.00-20.00) Ratio Glucose 120 H 114 H (70-110) mg/dL Calcium 8.0 L 8.3 L (8.7-10.3) mg/dL AST 47 H 40 H (13-35) U/L ALT 109 H 115 H (8-44) U/L Total Protein 5.1 L 5.0 L (6.2-8.2) g/dL Albumin 3.30 L 3.30 L (3.80-4.90) g/dL Assessment and Plan Plan: Assessment: 1 acute COVID 19 related pneumonia, symptoms started on 05/10/2020 and the patient presented emergency on 05/19/2020 with pneumonia by the pulmonary infiltrates confirmed and a chest x-ray to see angiogram. D-dimer is not elevated. CT abdomen showing no evidence of any pulmonary embolism. Bilateral groundglass pulmonary infiltrates and consolidations. Started Remdesivir on 0 05/20/2020, it was discontinued on 05/22/2020 in view of worsening hypoxemia and patient was given a dose of Actemra of 800 mg 2 acute hypoxic respiratory failure , is worsened since admission, currently on 15 L of oxygen 3 obesity with a BMI of 45.4 4 history of bronchial asthma maintained on inhalers such as Advair outpatient basis 5 MTZ 6 hypertension Plan: FiO2 is down to 5 L, continue weaning further Test home oxygen assessment on room air see if the patient qualifies for home oxygen Continue current dose Lovenox and Decadron Encourage deep breathing and coughing incentive spirometry use Encouraged patient to sit up in the chair Consider discharge home in the next 24 hours, repeat d-dimer tomorrow, and patient may need Xarelto 10 mg daily for 30 days after discharge, follow up with Dr. Fish in the office in one to 2 weeks in the office I performed a history & physical examination of the patient and discussed their management with my nurse practitioner, Toma Cotto. I reviewed the nurse practitioner's note and agree with the documented findings and plan of care. L adriana sounds are positive for diminished breath sounds. The findings and the impression was discussed with the patient. I attest to the documentation by the nurse practitioner. Time with Patient: Less than 30
[2020-05-28] MEDS: MELATONIN 3 MG TABLET PO SCH (20:25)
[2020-05-28] MEDS: ALPRAZolam 0.25 MG TAB PO PRN (20:33)
--- NOTE | 2020-05-29 06:49 | XR ---
EXAMINATION TYPE: XR chest 1V portable DATE OF EXAM: 05/29/2020 CLINICAL HISTORY: Difficulty breathing and covid progress study. TECHNIQUE: Single AP portable upright view of the chest is obtained. COMPARISON: Chest x-ray from 5 days earlier and older studies FINDINGS: There are persistent bilateral multifocal opacities. Background low lung volumes and eleva riley right hemidiaphragm redemonstrated. The cardiac silhouette size is stable and within normal limit s. The osseous structures remain intact. IMPRESSION: Bilateral multifocal opacities consistent with covid-19 infection. Areas of improved aera tion or improvement are noted bilaterally from most recent x-ray.
[2020-05-29] MEDS: ENOXAPARIN 40 MG/0.4 ML SYRINGE SQ SCH (08:30)
[2020-05-29] MEDS: DEXAMETHASONE SOD PHOSPHATE 10 MG/ML 1 ML VIAL IV SCH ×2 (08:30→20:33)
[2020-05-29] MEDS: guaiFENesin 600 MG TABLET.ER PO SCH ×2 (08:31→20:33)
[2020-05-29] MEDS: ASCORBIC ACID 500 MG TAB PO SCH (08:31)
[2020-05-29] MEDS: OXYBUTYNIN 10 MG TAB.ER.24 PO SCH (08:32)
[2020-05-29] MEDS: amLODIPine 10 MG TAB PO SCH (08:32)
[2020-05-29] MEDS: MULTIVITAMINS, THERA 1 EACH TAB PO SCH (08:32)
[2020-05-29] MEDS: MAGNESIUM OXIDE 400 MG TAB PO SCH (08:32)
[2020-05-29] MEDS: SENNOSIDES-DOCUSATE SODIUM 1 EACH TAB PO SCH (08:32)
[2020-05-29] MEDS: CHOLECALCIFEROL 25 MCG (1000 IU) TABLET PO SCH (08:32)
[2020-05-29] MEDS: lisinopriL 20 MG TAB PO SCH (08:32)
[2020-05-29] MEDS: SYMBICORT 160-4.5 MCG INHALER INHALATION SCH ×2 (09:49→20:40)
--- NOTE | 2020-05-29 15:09 | P.PN ---
Subjective Progress Note Date: 05/29/20 HISTORY OF PRESENT ILLNESS This is a pleasant 64-year-old female, patient of Dr. Rohit Jackson she has underlying asthma, not requiring any maintenance oral steroids or oxygen, mild intermittent in nature, on Proventil, she has a prior smoking history, quit at age 27, She comes into the emergency room with sore throat, body aches fever, and worsening shortness of breath, symptoms started 4/3 days had productive cough with diarrhea, muscle aches, chills, shortness of breath, for which it has progressed till 2 days prior admission, requiring now on ER visit. She also has chest pressure, no hemoptysis, patient denies any daily or DVT in the past. In the emergency room, she was noted to the hypoxemic with O2 sats at 88% on room air, requiring 2 L nasal cannula, she has CTA of the chest, showing borderline suboptimal opacification of pulmonary arterial system, no large ce ntral pulmonary emboli is identified, there are many lobar segmental and more distal arterial branches are nondiagnostic in embolizing, patchy bilateral infiltrates of groundglass consolidation, no pleural effusion, small hiatal hernia, indeterminate 1.5 cm nodularity left adrenal gland. Imaging consistent with confluent covered pneumonia, fatty liver, six-month follow-up for adrenal mass protocol was recommended. Left adrenal 1.5 cm adrenal nodule that shows 6.8 WBC, neutrophils normal, lymphocytes low at 0.6, d-dimer slightly elevated 0.77, creatinine 0.56, glucose 113, lactic acid normal 1.5, AST 70 elevated no sed rate no CRP no pro-calcitonin no ferritin no LDH obtained no EKG for review, consult was made with Dr. Garg, infectious disease 05/20: Patient states her breathing is a little bit better today and she slept well last night and thinks this has significantly impact her overall condition. She denies having any leg pain. She is currently on O2 at 3 L with pulse ox of 90%. Patient is been afebrile, heart rate 72, blood pressure 128/71. Repeat CBC reveals platelet count of 132, lymphocytes 0.87. Jazmine Tsai added. Patient is on day #2/5 of Remdesivir. 05/21: Patient is on day #3/5 of Remdesivir. [place] did not help with her insomnia last night and patient is requesting Benadryl which will be added. She states she is eating well. She is currently pulse oxing 87% on 13 L and was increased to 15 L nasal cannula with pulse ox of 90%. She has been afebrile, heart rate 75, blood pressure 160/67. 05/22: Patient's pulse ox is 90% on high flow nasal cannula 15 L with nonrebreather mask as well. Patient is been afebrile, heart rate 74, blood pressure 129/60. Repeat chest x-ray reveals worsening bilateral patchy infiltrates. Patient states that she slept better last night and received Benadryl. She continues to have cough. She states she is eating well. No choking episodes. Patient has received 3 doses of Remdesivir. Today, pulmonary medicine has ordered Tocilizumab. Patient is also continued on Symbicort, dexamethasone, Lovenox, vitamins. 05/23: Patient continues to have shortness of breath with his more comfortable today. She did have a bowel movement last night after prune juice. She continues to have some lower extremity edema despite receiving Lasix yesterday. Repeat dose of IV Lasix 40 mg 1 today. Patient has been afebrile, heart rate 66, respiratory rate 25, blood pressure 124/77, pulse ox 90% on 15 L high flow nasal cannula and nonrebreather. Repeat blood work reveals WBC 1.2 otherwise CBC is normal. D-dimer 1.38. BUN 33 and creatinine 0.71. AST 61, ALT 62, LDH 1343. C-reactive protein 37.2 which is improved from last draw. Repeat chest x-ray reveals diffuse bilateral airspace disease left greater than right un changed. Slight worsening within the lingula. 05/24 patient examined bedside known to worsening since yesterday remains on 15 L nasal cannula. He is comfortable in bed denies any cough or chest pain. Continue Decadron 6 mg IV every 12 with Lovenox 40 every 24 hours. Continue to use incentive spirometer. Pulmicort twice daily. 05/25 patient examined at bedside. Denies any shortness of breath or chest pain. She is maintaining [id number]% on 15 L of high flow nonrebreather. Patient is comfortable denies any cough or worsening shortness of breath on exertion. Denies any lower extremity edema or skin changes. Continues to get pro-air and Pulmicort as needed for shortness of breath. Continue Decadron 6 mg IV every 12 and Lovenox 40 every 24 hours. Repeat labs ordered for tomorrow morning 05/26: Patient has been afebrile, heart rate 58, blood pressure 131/64, pulse ox 92% on 15 L high flow nasal cannula. Repeat blood work reveals d-dimer 3.71. Electrolytes normal. Creatinine 0.5. Blood sugar 127. Ferritin 482.3, total bilirubin 0.8, AST 41, ALT 81, applying phosphatase 68. LDH 499 which is improved and C-reactive protein is improved at 0.4. The patient continues to lopez ve cough and intermittent sputum production which she states is darker in color. Mucinex added. 05/27: Patient states that she did not sleep well last night. She states melatonin did not help her. Patient will be started on Xanax 0.25 mg at bedtime as needed to help with sleep. She states she also had a dizzy spell last evening. She denies any dizziness at this time. She continues to have cough. Patient is on 12 L nasal cannula decreased this morning from 15 L. Pulse ox is 94%. She has been afebrile, heart rate 54, blood pressure 117/69. D-dimer is 3.19. 05/28: Patient is currently on high flow nasal cannula at 5 L with pulse ox of 94-96%. Heart rate 49-53. Afebrile. The pressure 115/50. Repeat blood work reveals d-dimer 3.65. Electrolytes and renal function normal. Blood sugar 114. AST 40, ALT 115. Patient denies having any abdominal pain. No lower extremity edema. Plan for discharge home on Tuesday. and evaluated bedside. Doing better than yesterday. Will switch from high flow nasal cannula to normal nasal cannula to see if patient can be discharged. Patient's vital suggested temp of 97.8 pulse 49 respiratory rate 20 blood pressure 131/77 oxygen saturation of 94% on 4 L. Patient will be discharged home on home oxygen once arranged for the patient. REVIEW OF SYSTEMS Constitutional: No fever, no chills, no night sweats. No weight change. Reports weakness, Reports fatigue. No daytime sleepiness. EENT: No headache. No blurred vision or double vision, no loss of vision. No dizziness. No nasal drainage or congestion. No epistaxis. No sore throat. Lungs: Reports shortness of breath improved Reports cough, no sputum production. No wheezing. Cardiovascular: No chest pain, no lower extremity edema. No palpitations. No paroxysmal nocturnal dyspnea. No orthopnea. No lightheadedness or dizziness. No syncopal episodes. Abdominal: No abdominal pain. No nausea, vomiting. No diarrhea. No constipation. No bloody or tarry stools. No loss of appetite. Genitourinary: No dysuria, increased frequency, urgency. No urinary retention. Musculoskeletal: No myalgias. No muscle weakness, no gait dysfunction, no fr equent falls. No back pain. No neck pain. Integumentary: No wounds, no lesions. No rash or pruritus. No unusual bruising. No change in hair or nails. Neurologic: No aphasia. No facial droop. No change in mentation. No head injury. No headache. No paralysis. No paresthesia. Psychiatric: No depression. No anxiety. Reports insomnia is improved. Endocrine: No abnormal blood sugars. No weight change. Objective - Vital Signs Vital signs: Vital Signs Temp 98.2 F 05/29/20 13:54 Pulse 51 L 05/29/20 13:54 Resp 20 05/29/20 13:54 BP 135/70 05/29/20 13:54 Pulse Ox 94 L 05/29/20 13:54 Intake & Output 05/28/20 05/29/20 05/29/20 18:59 06:59 18:59 Intake Total 700 Output Total 2 1 Balance 698 -1 Intake: Oral 700 Output: Stool 2 1 Other: Voiding Method Bedside Commode Bedside Commode # Voids 3 - Exam PHYSICAL EXAMINATION Gen: This is a 64-year-old morbidly obese female. Patient is resting in recliner and appears to be comfortable at rest. HEENT: Head is atraumatic, normocephalic. Pupils equal, round. Sclerae is anicteric. NECK: Supple. No JVD. No lymphadenopathy. No thyromegaly. LUNGS: Diminished bilaterally. No wheezes or rhonchi. No intercostal retractions. HEART: Regular rate and rhythm. No murmur. ABDOMEN: Soft. Bowel sounds are present. No masses. No tenderness. EXTREMITIES: No pedal edema. No calf tenderness. NEUROLOGICAL: Patient is awake, alert and oriented x3. Cranial nerves 2 through 12 are grossly intact. - Labs CBC & Chem 7: 05/23/20 07:13 05/28/20 06:36 Labs: Abnormal Lab Results - Last 24 Hours (Table) 05/29/20 Range/Units 06:19 D-Dimer 3.40 H (<0.60) mg/L FEU Assessment and Plan Plan: ASSESSMENT AND PLAN 1. Acute hypoxic respiratory failure secondary to Covid 19 pneumonia. Symptoms starting May 10 patient is status post 3 doses of Remdesivir, she is scheduled for one dose of Tocilizumab 05/22, continue dexamethasone 6 mg IV twice daily, with vitamin C, vitamin D, and zinc, Lovenox 40 mg subcu daily, pulmonary consult appreciated. Continue oxygen therapy, currently on 15 L high flow nasal cannula and nonrebreather. 2. History of mild intermittent asthma with exacerbation, on when necessary albuterol, now that she is sick she was requiring Advair at home, consult Dr Xiomara lopez 3. Adrenal mass 1.5 cm indeterminate, recommended repeat CAT scan in 6 months, due November 2020 outpatient 4. Covid pneumonia with hypoxia. Consults with pulmonary medicine and infectious disease appreciated. 5. Johnson, with elevated AST, diet management 6. Hypertension, lisinopril 20 mg daily 7. DVT prophylaxis Lovenox 40 mg daily 8. Insomnia, start melatonin 6 mg at bedtime 9. BMI of 45, A1c is 5.4.
--- NOTE | 2020-05-29 16:16 | PN ---
PROGRESS NOTE DATE OF SERVICE: 05/29/2020 REASON FOR FOLLOWUP: COVID-19 pneumonia. INTERVAL HISTORY: The patient is currently afebrile. The patient is breathing more comfortably. The patient denies having any chest pain or shortness of breath. Cough has decreased in intensity. No nausea, no vomiting, no abdominal pain or diarrhea. PHYSICAL EXAMINATION: Blood pressure 135/70 with a pulse of 51, temperature 98.2. She is 94% on 3 L nasal cannula. General description is a middle-aged female up in the bed in no distress. RESPIRATORY SYSTEM: Unlabored breathing with decreased intensity of breath sounds. No wheeze. HEART: S1, S2. Regular rate and rhythm. ABDOMEN: Soft. No tenderness. LABS: D-dimer is 3.40. DIAGNOSTIC IMPRESSION AND PLAN: Patient with COVID-19 pneumonia in this patient who seems to have show overall clinical improvement. Chest x-ray did show improvement as well. The patient currently 3 L. The patient is on dexamethasone, Lovenox, zinc and ascorbic acid; to continue and monitor clinical course closely. MMODL / IJN: [id number] /
--- NOTE | 2020-05-29 16:23 | P.PN ---
Subjective Progress Note Date: 05/29/20 Principal diagnosis: Hypoxia, pneumonia, COVID-19 64-year-old female patient, asthmatic, chemistry burst department with symptoms of sore throat and body aches and fever or worsening shortness of breath and the symptoms started on 05/10/2020.. The patient also had some diarrhea muscle aches and chills along with shortness of breath. Her breathing got worse over the past 2 days. The patient came into the emergency department. The patient was found to be hypoxic with pulse ox of 80% and the patient was placed on 2 L of oxygen by nasal cannula. The white cell count was 6.8 and the patient had lymphopenia. D-dimer was at 0.77, renal function was normal with a creatinine of 0.56. The platelet count was low at 121 and the patient's lactic acid level was at 1.5. The chest x-ray showing diffuse bilateral airspace disease and multifocal pulmonary opacities. CT angiogram showed no evidence of any pulmonary embolism. Patchy and confluent bilateral pulmonary consolidation and groundglass changes seen. The patient was also found to have a small hiatal hernia. Patient checked positive for COVID 19 infection and the patient is currently on Decadron 6 mg IV every 24 hours, Lovenox 40 mg subcu every 24 hours. Over the past 10-12 hours, the patient and wean down from 6 L down to 3 L of oxygen by nasal cannula. On 05/21/2020 patient seen in follow-up on medical surgical floor, she is currently up to 18 L on high flow nasal cannula, her pulse ox is anywhere from 87-90, does not appear to be in any acute distress, however easily desaturates, lung sounds reveal diffuse coarse crackles bilaterally. Occasional cough, chest x-ray, today's labs have been reviewed, d-dimer 0.70, electrolytes and renal profile were fairly unremarkable, LDH has increased to 1339, and CRP is 74.5, pro calcitonin level is negative at 0.07. No abdominal pain, no vomiting, no diarrhea. On the 05/22/2020 patient seen in follow-up on medical surgical floor, today is day 3 of Remdesivir, however her oxygenation has much worsened, and she is on nonrebreather in addition to high flow nasal cannula pulse ox is 92%, is easily desaturate, but appears to be in no acute distress, she is afebrile, hemodynamically she stable, chest x-ray today shows worsening bilateral patchy infiltrates. She has been on Lovenox 40 mg daily, and Decadron 6 mg twice daily On 05/26/2020 patient seen in follow-up on medical surgical floor, she remains on high flow oxygen, at 15 L, pulse ox 92%, she's been currently, she is currently resting in bed, she's been sitting up in a chair, tolerating activity well, she is status post Toci and convalescent plasma, she remains on dexamethasone 6 mg twice daily, multivitamins, and prophylactic Lovenox, today's labs have been noted. On 05/27/2020 patient seen in follow-up on medical surgical floor, her FiO2 is being weaned, and patient is currently on 9 L of oxygen pulse ox of 97%, looks very comfortable, no worsening dyspnea, minimal cough, she feels like she is improving, we did cut back to FiO2 further to 5 L, and her O2 sat will be rechecked and have an hour. She remains on Decadron 6 blood gram twice daily, she is on Lovenox at prophylactic dose. Today's labs have been reviewed, showing d-dimer 3.19, and weakness labs are pending, pro calcitonin level was negative. She has no specific complaints On 05/28/2020 patient seen in follow-up on medical surgical floor. Her FiO2 is currently down to 5 L and her pulse oximetry 96-97%, this can probably be weaned further down, no worsening dyspnea, she is resting comfortably in bed, she is afebrile, she is doing very well, no new chest x-ray, today's labs stable d- dimer of 3.65, electrolytes in renal profile are unremarkable, her LDH and CRP were improving a couple days ago, no follow-up inflammatory markers on today's labs. No acute events overnight On 05/29/2020 patient seen in follow-up on medical surgical floor, she is currently down to 3 L, she is breathing very comfortably her pulse ox is 94%, she steadily has been coming down on her supplemental oxygen, she's had no fever or chills, no chest discomfort, follow-up chest x-ray today shows multifocal opacities with areas of improved aeration. Today's labs reviewed showing d- dimer of 3.40. Remains on Decadron 6 mg twice daily, she is on Symbicort, she is on prophylactic dose Lovenox 40 mg daily, she is on multivitamins, clinically improving Objective - Vital Signs Vital signs: Vital Signs Temp 98.2 F 05/29/20 13:54 Pulse 51 L 05/29/20 13:54 Resp 20 05/29/20 13:54 BP 135/70 05/29/20 13:54 Pulse Ox 94 L 05/29/20 13:54 Intake & Output 05/28/20 05/29/20 05/29/20 18:59 06:59 18:59 Intake Total 700 Output Total 2 1 Balance 698 -1 Intake: Oral 700 Output: Stool 2 1 Other: Voiding Method Bedside Commode Bedside Commode # Voids 3 - Exam GENERAL EXAM: Alert, very pleasant, 64-year-old white female on 3 L of high flow oxygen and O2 sat is 94% HEAD: Normocephalic/atraumatic. EYES: Normal reaction of pupils, equal size. Conjunctiva pink, sclera white. NOSE: Clear with pink turbinates. THROAT: No erythema or exudates. NECK: No masses, no JVD, no thyroid enlargement, no adenopathy. CHEST: No chest wall deformity. Symmetrical expansion. LUNGS: Equal air entry with diffuse crackles CVS: Regular rate and rhythm, normal S1 and S2, no gallops, no murmurs, no rubs ABDOMEN: Soft, nontender. No hepatosplenomegaly, normal bowel sounds, no guarding or rigidity. EXTREMITIES: No clubbing, no edema, no cyanosis, 2+ pulses and upper and lower extremities. MUSCULOSKELETAL: Muscle strength and tone normal. SPINE: No scoliosis or deformity SKIN: No rashes CENTRAL NERVOUS SYSTEM: Alert and oriented -3. No focal deficits, tone is norm al in all 4 extremities. PSYCHIATRIC: Alert and oriented -3. Appropriate affect. Intact judgment and insight. - Labs CBC & Chem 7: 05/23/20 07:13 05/28/20 06:36 Labs: Abnormal Lab Results - Last 24 Hours (Table) 05/29/20 Range/Units 06:19 D-Dimer 3.40 H (<0.60) mg/L FEU Assessment and Plan Plan: Assessment: 1 acute COVID 19 related pneumonia, symptoms started on 05/10/2020 and the patient presented emergency on 05/19/2020 with pneumonia by the pulmonary infiltrates confirmed and a chest x-ray to see angiogram. D-dimer is not elevated. CT abdomen showing no evidence of any pulmonary embolism. Bilateral groundglass pulmonary infiltrates and consolidations. Started Remdesivir on 05/20/2020, it was discontinued on 05/22/2020 in view of worsening hypoxemia and patient was given a dose of Actemra of 800 mg 2 acute hypoxic respiratory failure , is worsened since admission, currently on 15 L of oxygen 3 obesity with a BMI of 45.4 4 history of bronchial asthma maintained on inhalers such as Advair outpatient basis 5 MTZ 6 hypertension Plan: FiO2 is down to 3 L, continue weaning further Test home oxygen assessment on room air see if the patient qualifies for home oxygen Continue current dose Lovenox and Decadron Encourage deep breathing and coughing incentive spirometry use Xarelto 10 mg daily for 30 days after discharge, follow up with Dr. Fish in the office in one to 2 weeks in the office From pulmonary perspective patient is cleared for discharge home next 24 hours I performed a history & physical examination of the patient and discussed their management with my nurse practitioner, Toma Cotto. I reviewed the nurse practitioner's note and agree with the documented findings and plan of care. Lung sounds are positive for diminished breath sounds. The findings and the impression was discussed with the patient. I attest to the documentation by the nurse practitioner. Time with Patient: Less than 30
[2020-05-29] MEDS: MELATONIN 3 MG TABLET PO SCH (20:33)
[2020-05-29] MEDS: ALPRAZolam 0.25 MG TAB PO PRN (20:38)
[2020-05-30] MEDS: ENOXAPARIN 40 MG/0.4 ML SYRINGE SQ SCH (07:58)
[2020-05-30] MEDS: DEXAMETHASONE SOD PHOSPHATE 10 MG/ML 1 ML VIAL IV SCH (07:58)
[2020-05-30] MEDS: OXYBUTYNIN 10 MG TAB.ER.24 PO SCH (07:58)
[2020-05-30] MEDS: amLODIPine 10 MG TAB PO SCH (07:59)
[2020-05-30] MEDS: lisinopriL 20 MG TAB PO SCH (07:59)
[2020-05-30] MEDS: ASCORBIC ACID 500 MG TAB PO SCH (07:59)
[2020-05-30] MEDS: CHOLECALCIFEROL 25 MCG (1000 IU) TABLET PO SCH (07:59)
[2020-05-30] MEDS: guaiFENesin 600 MG TABLET.ER PO SCH (07:59)
[2020-05-30] MEDS: MULTIVITAMINS, THERA 1 EACH TAB PO SCH (07:59)
[2020-05-30] MEDS: MAGNESIUM OXIDE 400 MG TAB PO SCH (07:59)
[2020-05-30] MEDS: SENNOSIDES-DOCUSATE SODIUM 1 EACH TAB PO SCH (08:00)
[2020-05-30] MEDS: SYMBICORT 160-4.5 MCG INHALER INHALATION SCH (09:38)
[2020-05-30 10:11] VITALS: BP 127/84; PULSE 51; RESP 18; TEMP 97.4
--- NOTE | 2020-05-30 13:26 | P.DS ---
Providers Date of admission: 05/19/20 16:01 Attending physician: Regina Hilliard Consults: 05/19/20 16:06 Consult Physician Stat Consulting Provider: Bulmaro Garg Consult Reason/Comments: covid pneumonia with hypoxia Do you want consulting provider notified?: Yes 05/19/20 20:38 Consult Physician Routine Consulting Provider: Jareth Olivia Reason/Comments: covid with hypoxia, asthma Do you want consulting provider notified?: Yes [facility] [place] [facility] Course: HISTORY OF PRESENT ILLNESS This is a pleasant 64-year-old female, patient of Dr. Rohit Jackson she has underlying asthma, not requiring any maintenance oral steroids or oxygen, mild intermittent in nature, on Proventil, she has a prior smoking history, quit at age 27, She comes into the emergency room with sore throat, body aches fever, and worsening shortness of breath, symptoms started 4/3 days had productive cough with diarrhea, muscle aches, chills, shortness of breath, for which it has progressed till 2 days prior admission, requiring now on ER visit. She also has chest pressure, no hemoptysis, patient denies any daily or DVT in the past. In the emergency room, she was noted to the hypoxemic with O2 sats at 88% on room air, requiring 2 L nasal cannula, she has CTA of the chest, showing borderline suboptimal opacification of pulmonary arterial system, no large central pulmonary emboli is identified, there are many lobar segmental and more distal arterial branches are nondiagnostic in embolizing, patchy bilateral infiltrates of groundglass consolidation, no pleural effusion, small hiatal hernia, indeterminate 1.5 cm nodularity left adrenal gland. Imaging consistent with confluent covered pneumonia, fatty liver, six-month follow-up for adrenal mass protocol was recommended. Left adrenal 1.5 cm adrenal nodule that shows 6.8 WBC, neutrophils normal, lymphocytes low at 0.6, d-dimer slightly elevated 0.77, creatinine 0.56, glucose 113, lactic acid normal 1.5, AST 70 elevated no sed rate no CRP no pro-calcitonin no ferritin no LDH obtained no EKG for review, consult was made with Dr. Garg, infectious disease 05/20: Patient states her breathing is a little bit better today and she slept well last night and thinks this has significantly impact her overall condition. She denies having any leg pain. She is currently on O2 at 3 L with pulse ox of 90%. Patient is been afebrile, heart rate 72, blood pressure 128/71. Repeat CBC reveals platelet count of 132, lymphocytes 0.87. Tessalon Perles added. Patient is on day #2/5 of Remdesivir. 05/21: Patient is on day #3/5 of Remdesivir. [place] did not help with her insomnia last night and patient is requesting Benadryl which will be added. She states she is eating well. She is currently pulse oxing 87% on 13 L and was increased to 15 L nasal cannula with pulse ox of 90%. She has been afebrile, heart rate 75, blood pressure 160/67. 05/22: Patient's pulse ox is 90% on high flow nasal cannula 15 L with nonrebreather mask as well. Patient is been afebrile, heart rate 74, blood pressure 129/60. Repeat chest x-ray reveals worsening bilateral patchy infiltrates. Patient states that she slept better last night and received Benadryl. She continues to have cough. She states she is eating well. No choking episodes. Patient has received 3 doses of Remdesivir. Today, pulmonary medicine has ordered Tocilizumab. Patient is also continued on Symbicort, dexamethasone, Lovenox, vitamins. 05/23: Patient continues to have shortness of breath with his more comfortable today. She did have a bowel movement last night after prune juice. She continues to have some lower extremity edema despite receiving Lasix yesterday. Repeat dose of IV Lasix 40 mg 1 today. Patient has been afebrile, heart rate 66, respiratory rate 25, blood pressure 124/77, pulse ox 90% on 15 L high flow nasal cannula and nonrebreather. Repeat blood work reveals WBC 1.2 otherwise CBC is normal. D-dimer 1.38. BUN 33 and creatinine 0.71. AST 61, ALT 62, LDH 1343. C-reactive protein 37.2 which is improved from last draw. Repeat chest x-ray reveals diffuse bilateral airspace disease left greater than right unchanged. Slight worsening within the lingula. 05/24 patient examined bedside known to worsening since yesterday remains on 15 L nasal cannula. He is comfortable in bed denies any cough or chest pain. Continue Decadron 6 mg IV every 12 with Lovenox 40 every 24 hours. Continue to use incentive spirometer. Pulmicort twice daily. 05/25 patient examined at bedside. Denies any shortness of breath or chest pain. She is maintaining -52% on 15 L of high flow nonrebreather. Patient is comfortable denies any cough or worsening shortness of breath on exertion. Denies any lower extremity edema or skin changes. Continues to get pro-air and Pulmicort as needed for shortness of breath. Continue Decadron 6 mg IV every 12 and Lovenox 40 every 24 hours. Repeat labs ordered for tomorrow morning 05/26: Patient has been afebrile, heart rate 58, blood pressure 131/64, pulse ox 92% on 15 L high flow nasal cannula. Repeat blood work reveals d-dimer 3.71. Electrolytes normal. Creatinine 0.5. Blood sugar 127. Ferritin 482.3, total bilirubin 0.8, AST 41, ALT 81, applying phosphatase 68. LDH 499 which is improved and C-reactive protein is improved at 0.4. The patient continues to have cough and intermittent sputum production which she states is darker in color. Mucinex added. 05/27: Patient states that she did not sleep well last night. She states melatonin did not help her. Patient will be started on Xanax 0.25 mg at bedtime as needed to help with sleep. She states she also had a dizzy spell last evening. She denies any dizziness at this time. She continues to have cough. Patient is on 12 L nasal cannula decreased this morning from 15 L. Pulse ox is 94%. She has been afebrile, heart rate 54, blood pressure 117/69. D-dimer is 3.19. 05/28: Patient is currently on high flow nasal cannula at 5 L with pulse ox of 94-96%. Heart rate 49-53. Afebrile. The pressure 115/50. Repeat blood work reveals d-dimer 3.65. Electrolytes and renal function normal. Blood sugar 114. AST 40, ALT 115. Patient denies having any abdominal pain. No lower extremity edema. Plan for discharge home on Tuesday. and evaluated bedside. Doing better than yesterday. Will switch from high flow nasal cannula to normal nasal cannula to see if patient can be discharged. Patient's vital suggested temp of 97.8 pulse 49 respiratory rate 20 blood pressure 131/77 oxygen saturation of 94% on 4 L. Patient will be discharged home on home oxygen once arranged for the patient. 05/30 patient developed bedside. Continues to require 2 L of oxygen at nasal cannula. No need for high flow or nonrebreather at this moment. Patient is breathing comfortably. Denies any cough or chest pain, diarrhea or change in bowel habits. Patient will be discharged on oxygen and home care today Physical exam - Constitutional General appearance: cooperative, no acute distress, obese - EENT Eyes: anicteric sclerae, normal appearance ENT: hearing grossly normal - Neck Neck: no lymphadenopathy, normal ROM, - Respiratory Respiratory: bilateral: CTA, - Cardiovascular Rhythm: regular Heart sounds: normal: S1, S2 - Gastrointestinal General gastrointestinal: normal bowel sounds, soft - Integumentary Integumentary: no rash Discharge diagnoses 1. Acute hypoxic respiratory failure secondary to Covid 19 pneumonia. 2. History of mild intermittent asthma with exacerbation 3. Adrenal mass 1.5 cm indeterminate, recommended repeat CAT scan in 6 months, due November 2020 outpatient 4. Covid pneumonia with hypoxia. 5. Johnson, with elevated AST 6. Hypertension Disposition home with home care Patient Condition at Discharge: Fair Plan - Discharge Summary New Discharge Prescriptions: New Ascorbic Acid [Vitamin C] 1,000 mg PO DAILY tab Rivaroxaban [Xarelto] 10 mg PO DAILY 30 Days #30 tab Continue Multivit-Min/Iron/Folic/Lutein [Centrum Silver Women Tablet] 1 tab PO DAILY Magnesium Gluconate [Magonate] 500 mg PO DAILY Cholecalciferol (Vitamin D3) [Vitamin D3 (3000 Iu)] 75 mcg PO DAILY Oxybutynin ER [Ditropan Xl] 10 mg PO DAILY amLODIPine BESYLATE/BENAZEPRIL [amLODIPine BESYLATE/BENAZEPRIL 10-20 mg] 1 cap PO DAILY Fluticasone/Salmeterol [Advair 500-50 Diskus] 1 puff INHALATION RT-BID Discharge Medication List Cholecalciferol (Vitamin D3) [Vitamin D3 (3000 Iu)] 75 mcg PO DAILY 05/19/20 [History] Fluticasone/Salmeterol [Advair 500-50 Diskus] 1 puff INHALATION RT-BID 05/19/20 [History] Magnesium Gluconate [Magonate] 500 mg PO DAILY 05/19/20 [History] Multivit-Min/Iron/Folic/Lutein [Centrum Silver Women Tablet] 1 tab PO DAILY 05/19/20 [History] Oxybutynin ER [Ditropan Xl] 10 mg PO DAILY 05/19/20 [History] amLODIPine BESYLATE/BENAZEPRIL [amLODIPine BESYLATE/BENAZEPRIL 10-20 mg] 1 cap PO DAILY 05/19/20 [History] Rivaroxaban [Xarelto] 10 mg PO DAILY 30 Days #30 tab 05/28/20 [Rx] Ascorbic Acid [Vitamin C] 1,000 mg PO DAILY tab 05/30/20 [Rx] Follow up Appointment(s)/Referral(s): [facility],Equipment [NON-STAFF] - (*Please call [facility] to arrange for delivery of oxygen concentrator today*) [facility], [NON-STAFF] - Gonzalez Jackson MD [Primary Care Provider] - 06/03/20 11:30 am Agustin Fish MD [STAFF PHYSICIAN] - 06/27/20 3:00 pm (with Lula) Patient Instructions/Handouts: Coronavirus Disease 2019 (COVID-19) Activity/Diet/Wound Care/Special Instructions: Patient isolated for 7-10 days post discharge. Recommend checking her oxygen every day. Continue oxygen to keep SpO2 more than 90% Continue incentive spirometry 10 times an hour Discharge Disposition: HOME WITH HOME HEALTH SERVICES
--- NOTE | 2020-05-30 16:07 | PN ---
PROGRESS NOTE DATE OF SERVICE: 05/30/2020 REASON FOR FOLLOWUP: COVID-19 pneumonia. INTERVAL HISTORY: The patient is currently afebrile. The patient is feeling better. She is breathing comfortably, currently on 2 L nasal cannula. Denies having any chest pain or shortness of breath or cough. No abdominal pain or diarrhea. PHYSICAL EXAMINATION: Blood pressure 127/84, pulse of 51, temperature 97.4. She is 91% on 2 L nasal cannula. General description is a middle-aged female up in the bed in no distress. RESPIRATORY SYSTEM: Unlabored breathing with decreased intensity of breath sounds. No wheeze. HEART: S1, S2. Regular rate and rhythm. ABDOMEN: Soft. No tenderness. LABS: No new labs have been obtained today. DIAGNOSTIC IMPRESSION AND PLAN: Patient with acute COVID-19 pneumonia in this patient who has shown overall clinical improvement on the current treatment protocol. Plan is for a short course of multivitamin, zinc on discharge and close outpatient followup. MMODL / IJN: [id number] /
== END 2020-05-30 13:56 | disposition home health service (06) | DRG 177 ==
LOC: EC 11:20 → 4SSUR 16:01
PROVIDERS: ADMIT Family Medicine; ATTEND Family Medicine
PROC: XW033E5 Introduction of Remdesivir Anti-infective into Peripheral Vein, Percutaneous Approach, New Technology Group 5 (ICD-10-PCS; principal; 2020-05-19)
PROC: XW13325 Transfusion of Convalescent Plasma (Nonautologous) into Peripheral Vein, Percutaneous Approach, New Technology Group 5 (ICD-10-PCS; 2020-05-27)
DX: U07.1 COVID-19 (principal); J12.82 Pneumonia due to coronavirus disease 2019; J96.21 Acute and chronic respiratory failure with hypoxia; J44.0 Chronic obstructive pulmonary disease with (acute) lower respiratory infection; Z68.42 Body mass index [BMI] 45.0-49.9, adult; J45.21 Mild intermittent asthma with (acute) exacerbation; D72.810 Lymphocytopenia; E27.8 Other specified disorders of adrenal gland; E66.9 Obesity, unspecified; G47.00 Insomnia, unspecified; I10 Essential (primary) hypertension; K44.9 Diaphragmatic hernia without obstruction or gangrene; K75.81 Nonalcoholic steatohepatitis (NASH); Z79.01 Long term (current) use of anticoagulants; Z79.51 Long term (current) use of inhaled steroids; Z79.899 Other long term (current) drug therapy; Z87.891 Personal history of nicotine dependence; Z79.891 Long term (current) use of opiate analgesic; Z91.018 Allergy to other foods
CPT/HCPCS: 36415; 71045; 71046; 71275; 80053; 82728; 83036; 83605; 83615; 84145; 84484; 85025; 85027; 85379; 85610; 85730; 86140; 93005; 94640; 94760; 96360; 96361; 99285